=== PATIENT | female | born 1960 | race Caucasian/White ===

== ENCOUNTER 2018-12-28 17:50 | Emergency (ER) | payer MEDICARE ==
[~2018-12-28] VITALS: Ht 160 cm; Wt 122.7 kg
[2018-12-28 17:51] VITALS: Ht 160 cm; Wt 122.7 kg
[2018-12-28] MEDS ORDERED: SYNTHROID150 MCG PO (17:53)
[2018-12-28] MEDS ORDERED: LASIX20 MG PO (17:54)
[2018-12-28] MEDS ORDERED: K-DUR20 MEQ PO (17:54)
[2018-12-28 18:49] LABS: BASOPHILS 0.6 % (0-2); EOSINOPHILS 3.9 % (0-7); HEMATOCRIT 38.7 % (36.0-48.0); HEMOGLOBIN 12.6 g/dL (12-16); IMMATURE GRANULOCYTES 0.2 % (0-5); LYMPHOCYTES 36.9 % (15-50); MCHC 32.6 g/dL (31.0-37.0); MONOCYTES 4.8 % (2-11); NEUTROPHILS 53.6 % (40-80); PLATELET COUNT 278 10x3/uL (130-400); RDW 18.5 % (11.5-14.5)
[2018-12-28 19:04] LABS: ALBUMIN 3.4 g/dL (3.4-5.0); ALKALINE PHOSPHATASE 77 U/L (46-116); ALT (SGPT) 17 U/L (10-68); BILIRUBIN - TOTAL 0.32 mg/dL (0.2-1.3); CALC OSMOLALITY 277 mosm/kg (275-300); CALCIUM 9.2 mg/dL (8.5-10.1); CARBON DIOXIDE 28.9 mmol/L (21.0-32.0); CHLORIDE - SERUM 103 mmol/L (98-107); CREATININE - SERUM 1.2 mg/dL (0.6-1.3); GLUCOSE 92 mg/dL (74-106); POTASSIUM - SERUM 4.1 mmol/L (3.5-5.1); PROTEIN - SERUM 7.6 g/dL (6.4-8.2); SODIUM 138 mmol/L (136-145); UREA NITROGEN 19 mg/dL (7-18); eGFR NON AFRICAN AMERICAN 49 mL/min (90-120)
[2018-12-28 19:13] LABS: PRO BNP 320 pg/mL (0-125); TROPONIN-I < 0.017 ng/mL (0.000-0.060)
[2018-12-28] MEDS ORDERED: LASIX40 MG PO (21:46)
[2018-12-28] MEDS ORDERED: MEDROL DOSE PACK4 MG PO (21:46)
[2018-12-28] MEDS ORDERED: VIBRAMYCIN 100100 MG PO (21:46)
[2018-12-28] MEDS ORDERED: KLOR-CON M2020 MEQ PO (21:46)
[2018-12-28] MEDS ORDERED: IPRAT-ALBUT 0.5-3 ML UPD (21:46)
[2018-12-28 23:04] VITALS: BP 132/83
== END 2018-12-28 22:57 | disposition home or self-care (01) ==
LOC: D.ER 17:50
PROVIDERS: Emergency Medicine
DX: J44.9 Chronic obstructive pulmonary disease, unspecified (principal); E03.9 Hypothyroidism, unspecified; R09.02 Hypoxemia; E66.01 Morbid (severe) obesity due to excess calories

== ENCOUNTER 2019-08-07 11:36 | Emergency (ER) | payer MEDICARE ==
[~2019-08-07] VITALS: Ht 160 cm; Wt 122.7 kg
[~2019-08-07 11:36] MED LIST: IPRAT-ALBUT 0.5-3 ML UPD; K-DUR20 MEQ PO; KLOR-CON M2020 MEQ PO; LASIX20 MG PO; LASIX40 MG PO; MEDROL DOSE PACK4 MG PO; SYNTHROID150 MCG PO; VIBRAMYCIN 100100 MG PO
[2019-08-07 11:53] VITALS: Ht 160 cm; Wt 122.7 kg
[2019-08-07 12:23] LABS: BASOPHILS 0.3 % (0-2); EOSINOPHILS 4.3 % (0-7); HEMATOCRIT 41.8 % (36.0-48.0); HEMOGLOBIN 13.4 g/dL (12-16); IMMATURE GRANULOCYTES 0.2 % (0-5); LYMPHOCYTES 33.4 % (15-50); MCH 29.5 pg (26.0-34.0); MCHC 32.1 g/dL (31.0-37.0); MCV 91.9 fL (80.0-100.0); MEAN PLATELET VOLUME 9.7 fL (7.4-10.4); NEUTROPHILS 56.8 % (40-80); PLATELET COUNT 327 10x3/uL (130-400); RBC 4.55 10x6/uL (4.00-5.40); RDW 17.4 % (11.5-14.5); WBC 9.6 10x3/uL (4.8-10.8)
[2019-08-07 12:34] LABS: CALC OSMOLALITY 274 mosm/kg (275-300); CALCIUM 9.1 mg/dL (8.5-10.1); CARBON DIOXIDE 28.1 mmol/L (21.0-32.0); CHLORIDE - SERUM 102 mmol/L (98-107); CREATININE - SERUM 1.2 mg/dL (0.6-1.3); GLUCOSE 94 mg/dL (74-106); POTASSIUM - SERUM 4.4 mmol/L (3.5-5.1); SODIUM 137 mmol/L (136-145); UREA NITROGEN 15 mg/dL (7-18); eGFR NON AFRICAN AMERICAN 49 mL/min (90-120)
[2019-08-07 12:50] LABS: APTT 34.9 SECONDS (22.8-39.4)
[2019-08-07 12:51] LABS: ALBUMIN 3.6 g/dL (3.4-5.0); ALKALINE PHOSPHATASE 71 U/L (46-116); ALT (SGPT) 21 U/L (10-68); BILIRUBIN - TOTAL 0.28 mg/dL (0.2-1.3); CKMB 7.5 U/L (0.0-3.6); CREATINE KINASE 463 UL (21-215); PRO BNP 378 pg/mL (0-125); PROTEIN - SERUM 8.1 g/dL (6.4-8.2); TROPONIN-I < 0.017 ng/mL (0.000-0.060)
[2019-08-07 12:52] LABS: INR 0.93 (0.85-1.17); PROTIME 12.4 SECONDS (11.6-15.0)
[2019-08-07] MEDS ORDERED: SYNTHROID50 MCG PO (16:05)
[2019-08-07 17:03] VITALS: BP 128/61
== END 2019-08-07 16:20 | disposition home or self-care (01) ==
LOC: D.ER 11:36
PROVIDERS: Family Medicine
DX: R06.02 Shortness of breath (principal); E03.9 Hypothyroidism, unspecified; R53.1 Weakness; J44.9 Chronic obstructive pulmonary disease, unspecified

== ENCOUNTER → 2020-02-07 18:30 | Outpatient (CLI) | payer MEDICARE ==
[2019-08-07 11:53] VITALS: BMI 47.9
[~2020-02-07 18:30] MED LIST changes: +MOBIC7.5 MG PO; +SYNTHROID100 MCG PO; +SYNTHROID50 MCG PO
== END | disposition home or self-care (01) ==
LOC: D.LABREF 18:30
PROVIDERS: ATTEND Orthopaedic Surgery
DX: M17.12 Unilateral primary osteoarthritis, left knee (principal)

== ENCOUNTER 2020-02-09 06:41 | Inpatient (IN) | payer MEDICARE ==
[~2020-02-09] VITALS: Ht 160 cm; Wt 132.8 kg
--- NOTE | ~2020-02-09 | HEMODYNAMI ---
PATIENT:CLARA CRUM MEDICAL RECORD: [id number] : 58 [facility] ADMISSION DATE: 02/09/20 Generatedon:02/18/202013:38 Patient name: CLARA CRUM Patient #: [id number] SSN: [id number] : 1960 Date of study: 02/18/2020 Page: Of Hemodynamic Procedure Report Patient Data Patient Demographics Procedure consent was obtained First Name: CLARA Gender: Female Last Name: SKYLA : 1960 Patient #: [id number] Age: 59 year(s) Race: SSN: [id number] Ethnicity: or Additional ID: [id number] Contact details Address: [address] State: [place] City: [place] Zip code: [address] Past Medical History Allergies Allergen Reaction Date Comments Reported Other allergy 02/18/2020 SULFA, Admission Admission Data Admission Date: 02/09/2020 Admission Time: 10:51 Arrival Date: 02/09/2020 Arrival Time: 10:51 Admit Source: Emergency Insurance Payor: Medicare department [facility] #: [id number] Room #: [facility]9 Height (in.): 62.99 BSA: 2.28 (m2) Height (cm.): 160 BMI: 51.95 (kg/m2) Weight (lbs.): 293.22 Weight (kg.): 133 Lab Results Lab Result Date: 02/18/2020 Lab Result Time: 0:00 Biochemistry Name Units Result Min Max BUN mg/dl 11.8 --(-*--)-- 7 18 Creatinine mg/dl 1.3 --(---*)-- 0.6 1.3 eGFR ml/min 44 *-(----)-- 90 120 NONAFRICAN CBC Name Units Result Min Max Hemoglobin g/dl 11.8 *-(----)-- 13.5 17.5 Procedure Procedure Types Cath Procedure Diagnostic Procedure Cardioversion External RAI Procedure Description Procedure Date Procedure Date: 02/18/2020 Procedure Start Time: 13:15 Procedure End Time: 13:28 Procedure Staff Name Function Elsy Vallecillo MD Performing Physician Teagan Larson RT Monitor Zaria Castillo RT Scrub Danish Pate RN Nurse Carmelo Araujo CRNA Additional personnel Caryl Becker Pharmacy Services Director Procedure Data Cath Procedure Fluoroscopy Diagnostic fluoroscopy Total fluoroscopy Time: 0 time: 0 min min Diagnostic fluoroscopy Total fluoroscopy dose: 0 dose: 0 mGy mGy Contrast Material Contrast Material Type Amount (ml) Isovue 300 0 Estimated blood loss: 5 ml Procedure Complications No complications Procedure Medications Medication Administration Route Dosage Oxygen etCO2 Nasal cannula 3 l/min Refer to Anesthesia Notes for Sedation Medications Hemodynamics Rest BSA: 2.28 (m2) HGB: 11.8 (g/dl) O2 Consumption: Estimated: 267.56 (ml/min) O2 Consumption indexed: Estimated:117.35 (ml/min/m) Heart Rate: 130 (bpm) Snapshots Pre Cath Intra NCS Post Cath Vital Signs Time Heart Resp SPO2 etCO2 NIBP (mmHg) Rhythm Pain Sedation Rate (ipm) (%) (mmHg) Status Level (bpm) 12:56:10 149 22 86 0 111/82(99) A-Flutter 0 (11) 10(A) , No pain 13:00:12 150 15 93 49.4 114/76(97) A-Flutter 0 (11) 10(A) , No pain 13:04:11 150 17 95 50.2 123/85(100) A-Flutter 0 (11) 9(A) , No pain 13:13:45 148 22 96 47.2 115/78(88) A-Flutter 0 (11) 9(A) , No pain 13:17:53 149 19 99 23.2 100/66(82) A-Flutter 0 (11) 9(A) , No pain 13:21:52 140 24 91 3.7 101/70(85) A-Flutter 0 (11) 9(A) , No pain 13:25:58 78 42 93 9.7 82/51(66) NSR 0 (11) 9(A) , No pain 13:28:48 78 25 93 12.7 84/53(65) NSR 0 (11) 9(A) , No pain 13:30:32 72 32 92 8.9 82/52(67) NSR 0 (11) 10(A) , No pain 13:32:37 76 22 96 46.4 78/50(61) NSR 0 (11) 10(A) , No pain 13:35:19 77 26 96 41.2 105/68(82) NSR 0 (11) 10(A) , No pain Medications Time Medication Route Dose Verified Delivered Reason Notes Effective ness by by 13:02:37 Oxygen etCO2 3 Elsy Peng used for Nasal l/min Avel Pate RN procedure cannula 13:02:46 Refer to Elsy Elyie used for Anesthesia Avel Pate planner scheduler Notes for Sedation Medications Procedure Log Time Note 12:30:29 Informed consent obtained and on chart 12:31:34 Admit Source: Emergency department 12:31:38 Arrival Date: 02/09/2020 10:51:00 AM 12:32:04 Insurance Payor : Medicare 12:32:14 Patient Height : 62.99 inches 12:32:17 Patient Weight : 293.22 lbs 12:32:44 Lab Result : Creatinine 1.3 mg/dl 12:32:44 Lab Result : BUN 11.8 mg/dl 12:32:44 Lab Result : eGFR NONAFRICAN 44 ml/min 12:32:44 Lab Result : Hemoglobin 11.8 g/dl 12:32:55 Procedure Status Cardioversion, RAI. 12:33:01 Diagnostic Cath Status : Elective 12:33:24 Danish Pate RN sent for patient. Start room use. 12:33:25 Time tracking: Regular hours (M-F 7:00 - 5:00) 12:33:31 Plan of Care:Hemodynamics will remain stable., Cardiac rhythm will remain stable., Comfort level will be maintained., Respiratory function will remain adequate., Patient/ family verbilizes understanding of procedure., Procedure tolerated without complication., Recovers from procedure without complications.. 12:49:05 Patient received from Med II to CCL 1 Alert and oriented. Tansferred to table in Supine position. 12:49:21 Warm blankets applied, and nando hugger turned on for patient comfort. 12:49:21 Correct patient and procedure confirmed by team. 12:49:22 ECG and BP/O2 sat monitors applied to patient. 12:49:24 Full Disclosure recording started 12:49:34 H&P Date Dictated: 02/09/2020 Within 30 days and on chart.. 12:49:35 Pre-procedure instructions explained to patient. 12:49:36 Pre-op teaching completed and patient verbalized understanding. 12:49:38 Family unavailable. 12:49:39 Patient NPO since Midnight. 12:50:52 Patient allergic to Other allergySULFA, 12:50:56 Is the patient allergic to Iodine/contrast media? No. 12:50:58 Was the patient premedicated? N/A 12:51:04 Alarms reviewed by R. N. 12:51:04 Sharps counted by scrub and verified by R.N. 12:51:10 Stress Test: no; N/A ? 12:51:15 Lab results completed and on chart. 12:51:25 IV patent on arrival in left antecubital with 0.9% NaCl at [facility]. 12:51:31 Patient pain scale 0/10 ?. 12:53:40 ----Pre-sedation anethsthesia assessment.---- 12:53:44 Previous problem with sedation/anesthesia? No ? 12:53:45 Snore? Yes 12:53:46 Sleep apnea? Yes 12:53:53 Deviated septum? No 12:53:54 Opens mouth fully? Yes 12:53:56 Sticks out tongue? Yes 12:53:58 Airway obstruction? Yes COPD ASTHMA 12:54:02 Dentures? No ? 12:54:21 Patient diabetic? No. 12:54:35 Is patient on blood thinner?No 12:54:40 Patient not . Patient is over age 55. 12:55:14 Vital chart was started 12:55:18 Baseline sample Acquired. 12:55:29 Rhythm: atrial fibrillation 13:00:11 Carmelo Araujo CRNA present and monitoring patient for TIVA. 13:00:19 Physician arrived 13:00:20 --------ALL STOP TIME OUT------ 13:00:21 Final Timeout: patient, procedure, and site verified with staff and physician. All members of the team are in agreement. 13:00:21 Final Timeout: patient, procedure, and site verified with staff and physician. All members of the team are in agreement. 13:00:27 Fire Safety Assessment: A--An alcohol-based skin anteseptic being used preoperatively., C--Open oxygen or nitrous oxide is being used., D--An ESU, laser, or fiber-optic light is being used. 13:00:30 Physical assessment completed. ASA score P 2 - A patient with mild systemic disease as per Elsy Vallecillo MD. 13:00:35 Sedation plan: TIVA Medication:Propofol 13:02:37 Oxygen 3 l/min etCO2 Nasal cannula was administered by Danish Pate RN; used for procedure; Verbal order read back and verified. 13:02:46 Refer to Anesthesia Notes for Sedation Medications was administered by Danish Pate RN; used for procedure; Verbal order read back and verified. 13:15:57 Procedure started. 13:17:11 Caryl Becker Nuclear Criticality Safety Engineer present for RAI. 13:17:12 RAI started. 13:17:15 Quick combo pads placed on patients chest and back. 13:21:55 RAI completed. 13:22:03 Defibrillator synced and charged to 360 Joules. 13:22:23 Shock delivered. 13:22:39 Patient cardioverted to sinus rhythm . 13:23:14 Procedure ended.(Physican Out) 13:23:36 Fluoroscopy time 00.00 minutes. 13:23:40 Fluoroscopy dose: 0 mGy 13:23:40 Flurop Dose total: 0 13:23:42 Dose Area Product 0 mGy/cm. 13:23:46 Contrast amount:Isovue 300 0ml. 13:23:49 Maximum allowable dose exceeded? No. 13:23:50 Sharps counted by scrub and verified by R.N. 13:23:51 Insertion/operative site no bleeding no hematoma. 13:23:58 Post procedure rhythm: sinus rhythm 13:24:01 Estimated blood loss: 5 ml 13:24:02 Post procedure instruction explained to patient.Patient verbalizes understanding. 13:24:03 Patient needs reinforcement of post procedure teaching. 13:24:10 Procedure type changed to Cath procedure, Diagnostic procedure, Cardioversion External, RAI 13:24:11 Procedure and supply charges have been captured, reviewed, submitted and are correct. 13:27:00 Procedure Complication : No complications 13:27:03 Vital chart was stopped 13:27:19 RAI Findings: RAI w/ cardioversion: no left atrial clot noted (proceed with cardioversion) 13:27:20 Operative report dictated upon procedure completion. 13:27:21 See physician's report for complete and final results. 13:27:58 Report given to Med II. 13:28:02 Procedure ended. 13:28:02 Full Disclosure recording stopped 13:35:51 End room use (Document Last) 13:36:18 Quick Combo opened to sterile field. 13:36:37 Quick Combo opened to sterile field. Device Usage Item Manufacture Quantity Catalog Hospital Part Current Minimal Lot# / Name Number Charge Number Stock Stock Delroyi al# Code Quick [employer] 2 [id number] Combo Signature Audit [place] Stage Time Signature Unsigned Intra-Procedure 02/18/2020 Teagan Larson 1:36:37 PM RT(R) Intra-Procedure 02/18/2020 Danish Pate RN 1:36:55 PM Intra-Procedure 02/18/2020 Elsy Vallecillo MD 1:38:28 PM [id number] [place] [address]
--- NOTE | ~2020-02-09 | HEMODYNAMI ---
PATIENT:CLARA CRUM MEDICAL RECORD: [id number] : 58 LOCATION:[facility] D.2119 ADMISSION DATE: 02/09/20 Generatedon:02/26/202013:36 Patient name: CLARA CRUM Patient #: [id number] SSN: [id number] : 1960 Date of study: 02/26/2020 Page: Of Hemodynamic Procedure Report Patient Data Patient Demographics Procedure consent was obtained First Name: CLARA Gender: Female Last Name: SKYLA : 1960 Patient #: [id number] Age: 59 year(s) Race: SSN: [id number] Ethnicity: or Additional ID: [id number] Contact details Address: [address] [place], [place] [address] [place] State: [place] City: [place] Zip code: [address] Past Medical History Allergies Allergen Reaction Date Comments Reported Other allergy 02/18/2020 SULFA, Other allergy 02/21/2020 sulfa Admission Admission Data Admission Date: 02/09/2020 Admission Time: 10:51 Arrival Date: 02/09/2020 Arrival Time: 10:51 Admit Source: Emergency Insurance Payor: Medicare department [facility] #: [id number] Room #: D211 Height (in.): 62.99 BSA: 2.28 (m2) Height (cm.): 160 BMI: 51.95 (kg/m2) Weight (lbs.): 293.22 Weight (kg.): 133 Lab Results Lab Result Date: 02/26/2020 Lab Result Time: 0:00 Biochemistry Name Units Result Min Max BUN mg/dl 28 --(----)-* 7 18 Creatinine mg/dl 1.1 --(--*-)-- 0.6 1.3 CBC Name Units Result Min Max Hematocrit % 36.7 *-(----)-- 42 54 Hemoglobin g/dl 10.8 *-(----)-- 13.5 17.5 Procedure Procedure Types Cath Procedure Diagnostic Procedure RAI Procedure Description Procedure Date Procedure Date: 02/26/2020 Procedure Start Time: 12:30 Procedure Staff Name Function Tylor Combs MD Performing Physician Diana Zhu RT Monitor Keyon Oconnell RN Nurse Caryl Becker Metal Hanging Supervisor Zaire Calderon CRNA Additional personnel Procedure Data Cath Procedure Fluoroscopy Diagnostic fluoroscopy Total fluoroscopy Time: 0 time: 0 min min Diagnostic fluoroscopy Total fluoroscopy dose: 0 dose: 0 mGy mGy Estimated blood loss: 0 ml Procedure Complications No complications Hemodynamics Rest BSA: 2.28 (m2) HGB: 10.8 (g/dl) O2 Consumption: Estimated: 218.42 (ml/min) O2 Consumption indexed: Estimated:95.8 (ml/min/m) Heart Rate: 73 (bpm) Snapshots Pre Cath Intra NCS Post Cath Vital Signs Time Heart Resp SPO2 etCO2 NIBP (mmHg) Rhythm Pain Sedation Rate (ipm) (%) (mmHg) Status Level (bpm) 13:00:23 70 20 88 0 102/30(49) NSR (Missing) 10(A) 13:04:49 72 18 89 0 113/57(84) NSR (Missing) 10(A) 13:09:19 79 25 92 0 123/90(105) NSR (Missing) 10(A) 13:14:18 80 21 0 Measuring NSR (Missing) 10(A) 13:15:42 84 21 0 Time NSR (Missing) 10(A) Exceeded 13:20:23 75 13 95 0 97/47(68) NSR (Missing) 10(A) 13:24:53 74 26 85 0 95/47(77) NSR (Missing) 10(A) 13:29:14 77 24 80 0 93/47(65) NSR (Missing) 10(A) 13:33:38 75 11 92 0 83/40(57) NSR (Missing) 10(A) Procedure Log Time Note 12:31:22 Informed consent obtained and on chart 12:31:48 Patient Weight : 293.22 lbs 12:31:48 Patient Height : 62.99 inches 12:32:03 Procedure Status RAI. 12:40:49 Time tracking: Regular hours (M-F 7:00 - 5:00) 12:40:53 Plan of Care:Hemodynamics will remain stable., Cardiac rhythm will remain stable., Comfort level will be maintained., Respiratory function will remain adequate., Patient/ family verbilizes understanding of procedure., Procedure tolerated without complication., Recovers from procedure without complications.. 12:44:42 Diana Zhu RT(R) sent for patient. Start room use. 12:56:56 Patient arrived from Med II to CCL 3. Patient remains on bed/stretcher for procedure. 12:56:58 Warm blankets applied, and nando hugger turned on for patient comfort. 12:56:58 Correct patient and procedure confirmed by team. 12:56:59 ECG and BP/O2 sat monitors applied to patient. 12:57:00 Pre-procedure instructions explained to patient. 12:57:01 Pre-op teaching completed and patient verbalized understanding. 12:57:03 Family in patients room. 12:57:04 Patient NPO since Midnight. 12:57:09 Is the patient allergic to Iodine/contrast media? No. 12:57:11 Was the patient premedicated? N/A 12:57:16 ----Pre-sedation anethsthesia assessment.---- 12:57:20 Previous problem with sedation/anesthesia? No ? 12:57:21 Snore? Yes 12:57:22 Sleep apnea? Yes 12:57:23 Deviated septum? No 12:57:24 Opens mouth fully? Yes 12:57:26 Sticks out tongue? Yes 12:57:29 Airway obstruction? Yes copd 12:57:32 Dentures? No ? 12:57:56 Patient not . Patient is over age 54. 12:58:13 Full Disclosure recording started 12:58:18 Alarms reviewed by R. N. 12:58:18 Sharps counted by scrub and verified by R.N. 12:58:41 Vital chart was started 12:58:43 Baseline sample Acquired. 12:58:49 Patient diabetic? Yes. 12:58:52 Is patient on blood thinner?No 12:59:00 Patient pain scale 0/10 ?. 12:59:13 IV patent on arrival in left hand with 0.9% NaCl at O. 12:59:17 Lab results completed and on chart. 12:59:47 Lab Result : BUN 28 mg/dl 12:59:47 Lab Result : Creatinine 1.1 mg/dl 12:59:47 Lab Result : Hemoglobin 10.8 g/dl 12:59:47 Lab Result : Hematocrit 36.7 % 12:59:52 Stress Test: no; N/A ? 13:10:47 Zaire Calderon CRNA present and monitoring patient for TIVA. 13:15:36 IV Extension Set opened to sterile field. 13:22:37 --------ALL STOP TIME OUT------ 13:22:38 Final Timeout: patient, procedure, and site verified with staff and physician. All members of the team are in agreement. 13:22:41 Physical assessment completed. ASA score P 3 - A patient with severe systemic disease as per Tylor Combs MD. 13:22:44 Sedation plan: TIVA Medication:Propofol 13:23:07 RAI 13:23:11 Caryl Becker Generator Repairer present for RAI. 13:23:13 RAI started. 13:29:37 RAI completed. 13:30:16 Procedure ended.(Physican Out) 13:31:33 Fluoroscopy time 00.00 minutes. 13:31:34 Fluoroscopy dose: 0 mGy 13:31:34 Flurop Dose total: 0 13:31:38 Post-procedure physical assessment completed. ASA score P 3 - A patient with severe systemic disease as per Tylor Cobms MD. 13:32:04 Post procedure rhythm: sinus rhythm 13:32:34 Estimated blood loss: 0 ml 13:32:35 Post procedure instruction explained to patient.Patient verbalizes understanding. 13:32:36 Patient needs reinforcement of post procedure teaching. 13:33:02 Procedure and supply charges have been captured, reviewed, submitted and are correct. 13:33:09 Procedure Complication : No complications 13:33:46 RAI Findings: other (see operative note) 13:33:47 Operative report dictated upon procedure completion. 13:33:48 See physician's report for complete and final results. 13:33:50 Report given to Med II. 13:33:55 Patient transfered to Med II with Bed. 13:34:36 Vital chart was stopped 13:34:39 End room use (Document Last) 13:34:51 End room use (Document Last) 13:36:15 End room use (Document Last) Device Usage Item Name Manufacture Quantity Catalog Hospital Part Current Minimal Lot# / Number Charge Number Stock Stock Serial# Code IV Hosp[employer] 1 [id number] Extension Set Signature Audit [place] Stage Time Signature Unsigned Intra-Procedure 02/26/2020 Diana Zhu 1:34:51 PM RT(R) Intra-Procedure 02/26/2020 Keoyn Oconnell 1:36:15 PM RN Intra-Procedure 02/26/2020 Tylor Stafford 1:36:50 PM Dennis HANEY [address] [address]
--- NOTE | ~2020-02-09 | HEMODYNAMI ---
PATIENT:CLARA CRUM MEDICAL RECORD: [id number] : 58 LOCATION:[facility] D.2119 ADMISSION DATE: 02/09/20 Generatedon:02/21/20209:24 Patient name: CLARA CRUM Patient #: [id number] : 1960 Date of study: 02/21/2020 Page: Of Hemodynamic Procedure Report Patient Data Patient Demographics Procedure consent was obtained First Name: CLARA Gender: Female Last Name: SKYLA : 1960 Patient #: [id number] Age: 59 year(s) Race: SSN: [id number] Ethnicity: or Additional ID: [id number] Contact details Address: [address] [place], [place] [address]ERINE DARIUS SOLOMON State: [place] City: [place] Zip code: [address] Past Medical History Allergies Allergen Reaction Date Comments Reported Other allergy 02/18/2020 SULFA, Other allergy 02/21/2020 sulfa Admission Admission Data Admission Date: 02/09/2020 Admission Time: 10:51 Arrival Date: 02/09/2020 Arrival Time: 10:51 Admit Source: Emergency Insurance Payor: Medicare department [facility] #: [id number] Room #: D2119 Height (in.): 62.99 BSA: 2.28 (m2) Height (cm.): 160 BMI: 51.95 (kg/m2) Weight (lbs.): 293.22 Weight (kg.): 133 Lab Results Lab Result Date: 02/21/2020 Lab Result Time: 0:00 Biochemistry Name Units Result Min Max BUN mg/dl 41 --(----)-* 7 18 Creatinine mg/dl 1.1 --(--*-)-- 0.6 1.3 eGFR ml/min 54 *-(----)-- 90 120 NONAFRICAN CBC Name Units Result Min Max Hemoglobin g/dl 11.3 *-(----)-- 13.5 17.5 Procedure Procedure Types Cath Procedure Diagnostic Procedure Right Heart RHC w/Coronaries Sedation Charges Moderate Sedation up to 15 minutes Procedure Description Procedure Date Procedure Date: 02/21/2020 Procedure Start Time: 8:31 Procedure End Time: 9:17 Procedure Staff Name Function Elsy Vallecillo MD Performing Physician Teagan Larson RT Monitor Zaria Castillo RT Scrub Danish Pate RN Nurse Procedure Data Cath Procedure Fluoroscopy Diagnostic fluoroscopy Total fluoroscopy Time: 5.7 time: 5.7 min min Diagnostic fluoroscopy Total fluoroscopy dose: 859 dose: 859 mGy mGy Contrast Material Contrast Material Type Amount (ml) Isovue 300 40 Entry Location Entry Primary Successful Side Size Upsize Upsize Entry Closure Hay ccessful Closure Location (Fr) 1 (Fr) 2 (Fr) Remarks Device Remarks Femoral Right 5 Fr Exoseal artery Femoral Right 7 Fr Manual vein Short Compression Estimated blood loss: 5 ml Diagnostic catheters Device Type Used For End Catheter Placement SWAN 7Fr S Tip Pressure Thermodilution catheter Measurement (151F7) Procedure Complications No complications Procedure Medications Medication Administration Route Dosage Oxygen etCO2 Nasal cannula 2 l/min Lidocaine 2% added to field 20 Heparin Flush Bag added to field 2 bags (1000units/500ml NS) 0.9% NaCl I.V. 50 ml/hr Versed I.V. 1 mg Fentanyl I.V. 25 mcg Hemodynamics Rest BSA: 2.28 (m2) HGB: 11.3 (g/dl) O2 Consumption: Estimated: 215.37 (ml/min) O2 Co nsumption indexed: Estimated:94.46 (ml/min/m) Heart Rate: 69 (bpm) Oxygen Saturations Time Location Saturations Hgb (g/dl) O2 Content Use (%) (ml/L) 8:47 PCW 65 8:48 PA 58.4 8:49 RA 53 Pressure Samples Time Site Value (mmHg) Purpose Heart Use Rate(bpm) 8:50 PCW 31/51(34) Snapshot 69 8:50 PCW 29/54(34) Snapshot 59 8:56 RV 56/14,21 Snapshot 69 8:56 RA 24/20(19) Snapshot 66 Thermodilution Cardiac Output Time Cardiac Output (l/min) Use 8:54 3.89 l/m 8:55 4.43 l/m Calculations Shunts (%) CO SV CO CI Right To 0.24 (ml/beat) (l/min) (l/(min*m)) Left Thermal 60.73 4.16 1.8 Content (ml/l) O2 Difference (ml/l) O2 MV 81.45 PV-PA(VA) O2 PA 89.75 PV-MV(VV) Snapshots Thermal Samples Pre Cath Intra NCS Post Cath Vital Signs Time Heart Resp SPO2 etCO2 NIBP (mmHg) Rhythm Pain Sedation Rate (ipm) (%) (mmHg) Status Level (bpm) 8:24:55 69 21 93 52.5 130/82(106) NSR 0 (11) 10(A) , No pain 8:29:28 70 27 94 54.1 124/76(101) NSR 0 (11) 10(A) , No pain 8:34:02 71 25 94 52.6 128/79(101) NSR 0 (11) 10(A) , No pain 8:38:43 69 24 95 43.5 116/58(89) NSR 0 (11) 10(A) , No pain 8:43:11 69 27 95 51 122/72(98) NSR 0 (11) 10(A) , No pain 8:47:44 68 19 94 50.3 125/77(106) NSR 0 (11) 10(A) , No pain 8:52:18 68 19 95 41.3 122/82(105) NSR 0 (11) 10(A) , No pain 8:56:53 69 25 96 24 128/77(121) NSR 0 (11) 10(A) , No pain 9:01:19 68 17 95 52.5 128/83(109) NSR 0 (11) 10(A) , No pain 9:05:55 69 21 94 21.8 125/77(108) NSR 0 (11) 10(A) , No pain 9:10:32 61 14 94 40.5 129/77(105) NSR 0 (11) 10(A) , No pain 9:15:08 69 18 90 18 126/79(104) NSR 0 (11) 10(A) , No pain Medications Time Medication Route Dose Verified Delivered Reason Notes Effe ctiveness by by 8:17:53 Oxygen etCO2 2 Elsy Peng used for Nasal l/min Avel Pate RN procedure cannula 8:18:03 Lidocaine 2% added 20ml Elsy Chin for local to vial Avel Vallecillo MD anesthetic field 8:18:10 Heparin Flush added 2 Norred Norred used for Bag to bags Avel Vallecillo MD procedure (1000units/500ml field NS) 8:18:19 0.9% NaCl I.V. 50 Elsy Peng Per ml/hr Avel Pate RN physician 9:00:57 Versed I.V. 1 mg Elsy Peng for Avel Pate RN sedation 9:01:03 Fentanyl I.V. 25 Francired Buffie for mcg Avel Pate RN sedation Procedure Log Time Note 7:24:12 Informed consent obtained and on chart 7:24:40 Patient Height : 62.99 inches 7:24:40 Patient Weight : 293.22 lbs 7:24:49 Diagnostic Cath Status : Urgent 7:25:54 Lab Result : eGFR NONAFRICAN 54 ml/min 7:25:54 Lab Result : Hemoglobin 11.3 g/dl 7:25:54 Lab Result : BUN 41 mg/dl 7:25:54 Lab Result : Creatinine 1.1 mg/dl 7:26:07 3a) 45-59 Moderately reduced kidney function. 7:26:32 Maximum allowable contrast dose (3.7 X eGFR X 0.75)149 ml. 7:28:27 Risk of Mortality: 0.2 7:28:31 Risk of blood transfusion: 1.8 7:28:34 Risk of KATHIE: 2.6 7:32:10 Danish Pate RN sent for patient. Start room use. 7:32:11 Time tracking: Regular hours (M-F 7:00 - 5:00) 7:32:17 Plan of Care:Hemodynamics will remain stable., Cardiac rhythm will remain stable., Comfort level will be maintained., Respiratory function will remain adequate., Patient/ family verbilizes understanding of procedure., Procedure tolerated without complication., Recovers from procedure without complications.. 8:06:24 Patient received from Med II to CCL 1 Alert and oriented. Tansferred to table in Supine position. 8:06:32 Warm blankets applied, and nando hugger turned on for patient comfort. 8:06:33 Correct patient and procedure confirmed by team. 8:06:33 ECG and BP/O2 sat monitors applied to patient. 8:06:43 H&P Date Dictated: 02/09/2020 Within 30 days and on chart.. 8:06:45 Pre-procedure instructions explained to patient. 8:06:45 Pre-op teaching completed and patient verbalized understanding. 8:06:47 Patient NPO since Midnight. 8:07:00 Patient allergic to Other allergysulfa 8:17:12 Baseline sample Acquired. 8:17:12 Vital chart was started 8:17:53 Oxygen 2 l/min etCO2 Nasal cannula was administered by Danish Pate RN; used for procedure; Verbal order read back and verified. 8:18:03 Lidocaine 2% 20ml vial added to field was administered by Elsy Vallecillo MD; for local anesthetic; Verbal order read back and verified. 8:18:10 Heparin Flush Bag (1000units/500ml NS) 2 bags added to field was administered by Elsy Vallecillo MD; used for procedure; Verbal order read back and verified. 8:18:19 0.9% NaCl 50 ml/hr I.V. was administered by Danish Pate RN; Per physician; Verbal order read back and verified. 8:19:32 Rhythm: sinus rhythm 8:19:34 Full Disclosure recording started 8:19:36 Family in patients room. 8:19:38 Is the patient allergic to Iodine/contrast media? No. 8:19:39 Was the patient premedicated? Yes 8:19:41 Is patient on blood thinner?No 8:19:42 Patient diabetic? No. 8:19:45 Previous problem with sedation/anesthesia? No ? 8:19:46 Snore? Yes 8:19:47 Sleep apnea? Yes 8:19:49 Deviated septum? No 8:19:49 Opens mouth fully? Yes 8:19:50 Sticks out tongue? Yes 8:20:00 Airway obstruction? Yes copd, emphysema 8:20:03 Dentures? No ? 8:20:31 Pre procedure: right dorsailis pedis pulse 2+ Normal; easily identifiable; not easily obliterated 8:20:34 Pre procedure: left dorsailis pedis pulse 2+ Normal; easily identifiable; not easily obliterated 8:20:41 Patient pain scale 0/10 ?. 8:20:50 IV patent on arrival in left wrist with 0.9% NaCl at [facility]. 8:20:54 Lab results completed and on chart. 8:21:03 Right Radial & Right Groin area was prepped with chlora-prep and draped in sterile fashion 8:21:04 Alarms reviewed by RWilmer N. 8:21:04 Sharps counted by scrub and verified by RWilmerN. 8:21:06 Physician arrived 8:21:06 --------ALL STOP TIME OUT------ 8:21:07 Final Timeout: patient, procedure, and site verified with staff and physician. All members of the team are in agreement. 8:21:09 Right Radial & Right Groin site verified by team. 8:23:34 SHEATH 7FR [place] ([id number]) opened to sterile field. 8:23:42 Use device set Radial Dx or PCI 8:23:45 ACIST Syringe (37051) opened to sterile field. 8:23:45 Medline Cath Pack ([id number]) opened to sterile field. 8:23:46 Bag Decanter (2002S) opened to sterile field. 8:23:46 ACIST Hand Control (12877) opened to sterile field. 8:23:47 ACIST Manifold (61660) opened to sterile field. 8:23:47 Tegaderm 4 x 4 (1626W) opened to sterile field. 8:23:49 MBrace Wrist Support ([id number]) opened to sterile field. 8:23:51 EMERALD Guide Wire (638-255) opened to sterile field. 8:23:52 SHEATH 6FR RAIN ([id number]) opened to sterile field. 8:24:09 Fire Safety Assessment: A--An alcohol-based skin anteseptic being used preoperatively., C--Open oxygen or nitrous oxide is being used., D--An ESU, laser, or fiber-optic light is being used. 8:24:14 Physical assessment completed. ASA score P 2 - A patient with mild systemic disease as per Elsy Vallecillo MD. 8:24:18 Sedation plan: IV Moderate Sedation Medication:Versed, Fentanyl 8:25:22 Tegaderm 4 x 4 (1626W) opened to sterile field. 8:31:08 Procedure started. 8:31:17 Local anesthetic to right radial artery with Lidocaine 2% by Elsy Vallecillo MD.INITIAL ACCESS ONLY 8:33:49 FIELDER XT 190cm guidewire ([id number]) opened to sterile field. 8:33:50 fielder wire used in attempt to gain radial access; wire removed; unable to gain radial access 8:34:24 Zero performed for pressure channel P1 8:37:57 Baseline sample Acquired. 8:42:52 Local anesthetic to right femoral artery with Lidocaine 2% by Elsy Vallecillo MD.ADDITIONAL ACCESS 8:42:53 Access obtained with 4Fr micropunture. 8:43:24 SHEATH 5FR [place] (PZL115) opened to sterile field. 8:43:37 A 5 Fr sheath was inserted into the Right Femoral artery 8:44:31 A 7 Fr Short sheath was inserted into the Right Femoral vein 8:46:53 A SWAN 7Fr S Tip Thermodilution catheter (151F7) was advanced over the wire and used for Pressure Measurement. 8:47:50 PCW saturation: 65% 8:48:50 PA saturation: 58.4% 8:49:50 RA saturation: 53% 8:54:52 Thermodilution performed using a Hernandes 131F7 7.0 Fr 19-22C 10.00 mL. Injectate temperature was 17.70 C, CO: 3.89 L/min, average CO: 4.16 L/min 8:55:31 Thermodilution performed using a Hernandes 131F7 7.0 Fr 19-22C 10.00 mL. Injectate temperature was 17.72 C, CO: 4.43 L/min, average CO: 4.16 L/min 8:59:05 average of both Cardiac Output measurements 4.16 8:59:06 DIAGNOSTIC Multipack 5Fr catheter set (AE8344) opened to sterile field. 8:59:40 5 Fr jl4 guide catheter was inserted over the wire 9:00:43 LCA angiography performed. 9:00:45 Injector settings: Ml/sec: 3, Volume: 6, 9:00:57 Versed 1 mg I.V. was administered by Danish Pate RN; for sedation; Verbal order read back and verified. 9:01:03 Fentanyl 25 mcg I.V. was administered by Danish Pate RN; for sedation; Verbal order read back and verified. 9:02:14 Catheter removed. 9:02:20 5 Fr 3drc guide catheter was inserted over the wire 9:03:41 RCA angiography performed. 9:03:43 Injector settings: Ml/sec: 3, Volume: 6, 9:04:11 GLIDE WIRE Super Stiff Angled 260cm (QU2385) opened to sterile field. 9:06:26 Wire removed. 9:06:38 Catheter removed. 9:06:52 EXOSEAL 5Fr (EX500) opened to sterile field. 9:09:54 Sheath removed intact; hemostasis achieved with Exoseal to the Right Femoral artery. 9:10:06 Sheath removed intact; hemostasis achieved with Manual Compression to the Right Femoral vein. 9:10:08 Procedure ended.(Physican Out) 9:10:22 Fluoroscopy time 05.70 minutes. 9:10:27 Flurop Dose total: 859 9:10:27 Fluoroscopy dose: 859 mGy 9:10:33 Dose Area Product 91616 mGy/cm. 9:10:37 Contrast amount:Isovue 300 40ml. 9:10:43 Maximum allowable dose exceeded? No. 9:10:46 Sharps counted by scrub and verified by R.N. 9:10:48 Insertion/operative site no bleeding no hematoma. 9:10:51 Post-op/insertion site Right Femoral artery dressed using a 4 x 4 and Tegaderm. 9:10:56 Post right femoral artery:stable 9:10:59 Post right femoral vein:stable 9:11:09 Post Procedure Pulses reassessed and unchanged 9:11:15 Post procedure rhythm: unchanged. 9:11:18 Estimated blood loss: 5 ml 9:13:52 Post procedure instruction explained to patient.Patient verbalizes understanding. 9:13:53 Patient needs reinforcement of post procedure teaching. 9:16:41 Procedure type changed to Cath procedure, Diagnostic procedure, Right Heart, RHC w/Coronaries, Sedation Charges, Moderate Sedation up to 15 minutes 9:17:23 Procedure and supply charges have been captured, reviewed, submitted and are correct. 9:17:27 Procedure Complication : No complications 9:17:31 Vital chart was stopped 9:17:34 LHC Findings: mild to moderate CAD (<70%) 9:17:39 RHC Findings: PHTN: see procedure notes for sats and pressures 9:17:40 Operative report dictated upon procedure completion. 9:17:41 See physician's report for complete and final results. 9:17:46 Report given to [facility]. 9:17:48 Patient transfered to [facility] with Stretcher. 9:17:50 Procedure ended. 9:17:50 Full Disclosure recording stopped 9:17:55 End room use (Document Last) 9:23:19 End room use (Document Last) 9:23:38 End room use (Document Last) Device Usage Item Name Manufacture Quantity Catalog Hospital Part Current Min imal Lot# / Number Charge Number Stock Stock Serial# Code SHEATH 7FR Terumo 1 [id number] 177342 510894 5 [place] ([id number]) ACIST Syringe Acist 1 69562 605606 793235 539716 20 (04954) Medical Systems Inc Medline Cath Medline 1 [id number] 381897 35542 760670 5 Pack ([id number]) Bag Decanter Microtek 1 2002S 181265 19811 741893 5 (2001S) Medical Inc. ACIST Hand Acist 1 45730 257734 951912 530572 5 Control Medical (49853) Systems Inc ACIST Manifold Acist 1 41007 882977 611988 427097 5 (13461) Medical Systems Inc Tegaderm 4 x 4 3M 2 1626W 350874 567003 802683 5 (1626W) MBrace Wrist Advanced 1 140-0250-00 552988 76180 300031 5 Support Vascular ([id number]) Dynamics EMERALD Guide Cardinal 1 502-455 592462 475056 892905 5 Wire (502-455) Health SHEATH 6FR Cardinal 1 0912300 492210 9360038 569615 5 RAIN (0037924) Health FIELDER XT Asahi Intecc 1 [id number] 160193 60862 811056 5 190cm guidewire ([id number]) SHEATH 5FR Terumo 1 OVA219 688077 153368 039304 5 [place] (GZU737) SWAN 7Fr S Tip Hernandes 1 151F7 634054 09689 632607 5 Thermodilution Lifesciences catheter (151F7) DIAGNOSTIC Cardinal 1 JU0409 959440 39066 719722 30 Multipack 5Fr Health catheter set (QN3057) GLIDE WIRE Terumo 1 AH5992 034655 619581 993443 5 Super Stiff Angled 260cm (BS4119) EXOSEAL 5Fr Cardinal 1 EX500 369144 212113 803871 10 (EX500) Health Signature Audit [place] Stage Time Signature Unsigned Intra-Procedure 02/21/2020 Teagan Larson 9:23:19 AM RT(R) Intra-Procedure 02/21/2020 Danish Pate RN 9:23:38 AM Intra-Procedure 02/21/2020 Elsy Vallecillo MD 9:23:58 AM [id number] [place] [address]
[~2020-02-09 06:41] MED LIST changes: -MOBIC7.5 MG PO; -SYNTHROID100 MCG PO
--- NOTE | 2020-02-09 07:38 | NUR ---
PT SLEEPING ON SIDE. NO S/S OF ACUTE DISTRESS NOTED. PT PROVIDED WARM BLANKET FOR COMFORT.
[2020-02-09 07:51] LABS: HEMATOCRIT 39.4 % (36.0-48.0); HEMOGLOBIN 12.4 g/dL (12-16); LYMPHOCYTES 18.3 % (15-50); MCH 30.5 pg (26.0-34.0); MCHC 31.5 g/dL (31.0-37.0); MEAN PLATELET VOLUME 9.3 fL (7.4-10.4); NEUTROPHILS 75.5 % (40-80); PLATELET COUNT 327 10x3/uL (130-400); RBC 4.06 10x6/uL (4.00-5.40); WBC 10.5 10x3/uL (4.8-10.8)
[2020-02-09 07:54] LABS: CALC OSMOLALITY 278 mosm/kg (275-300); CARBON DIOXIDE 32.6 mmol/L (21.0-32.0); CHLORIDE - SERUM 102 mmol/L (98-107); CREATININE - SERUM 1.1 mg/dL (0.6-1.3); GLUCOSE 107 mg/dL (74-106); POTASSIUM - SERUM 4.1 mmol/L (3.5-5.1); SODIUM 139 mmol/L (136-145); UREA NITROGEN 16 mg/dL (7-18); eGFR NON AFRICAN AMERICAN 54 mL/min (90-120)
[2020-02-09 07:56] LABS: APTT 33.8 SECONDS (22.8-39.4); INR 0.93 (0.85-1.17); PROTIME 12.5 SECONDS (11.6-15.0)
[2020-02-09 08:13] LABS: ALBUMIN 3.5 g/dL (3.4-5.0); ALKALINE PHOSPHATASE 95 U/L (30-120); ALT (SGPT) 30 U/L (10-68); BILIRUBIN - TOTAL 0.39 mg/dL (0.2-1.3); CKMB 1.3 U/L (0.0-3.6); CREATINE KINASE 97 UL (21-215); PRO BNP 2195 pg/mL (0-125); PROTEIN - SERUM 8.1 g/dL (6.4-8.2); TROPONIN-I < 0.017 ng/mL (0.000-0.060)
--- NOTE | 2020-02-09 08:50 | NUR ---
PT PLACED ON ISOLATION PERCAUTIONS. COVID SWAB TAKEN TO LAB.
[2020-02-09 09:00] VITALS: BP 113/72
--- NOTE | 2020-02-09 10:11 | NUR ---
1000CC OUT OF DÍAZ CATH, PT STATES SHE IS HURTING C/O HEADACHE. PT VOIDING AROUND CATH
[2020-02-09 10:30] VITALS: BP 104/58
--- NOTE | 2020-02-09 11:20 | NUR ---
PT AGITATED. RN UPDATED PT ON PLAN OF CARE AND PLAN TO ADMIT PT. PT CONTINUES TO YELL STATING "I AM JUST GOING TO WALK OUT OF HERE". RN ATTEMPTING TO CALL REPORT AT THIS TIME.
[2020-02-09 11:30] VITALS: BP 115/55
--- NOTE | 2020-02-09 11:56 | NUR ---
REPORT RECEIVED FROM ED NURSE NIDA. PATIENT TO UNIT SOON.
--- NOTE | 2020-02-09 12:10 | NUR ---
PATIENT ARRIVED TO UNIT VIA GERNEY AT THIS TIME. PATIENT IS PUI FOR COVID AND BEING PLACED IN DROPLET ISOLATION.
[2020-02-09] MEDS ORDERED: SYNTHROID100 MCG PO (12:27)
[2020-02-09] MEDS ORDERED: MOBIC7.5 MG PO (12:29)
--- NOTE | 2020-02-09 13:00 | NUR ---
COVID RESULTS NEGATIVE, PATIENT REMOVED FROM DROPLET ISOLATION.
[2020-02-09 14:54] VITALS: BMI 56.8
[2020-02-09 20:28] VITALS: BP 96/72
[2020-02-10 05:00] VITALS: BP 110/67
[2020-02-10 08:00] LABS: HEMATOCRIT 38.9 % (36.0-48.0); HEMOGLOBIN 12.2 g/dL (12-16); LYMPHOCYTES 6.7 % (15-50); MCH 30.9 pg (26.0-34.0); MCHC 31.4 g/dL (31.0-37.0); MCV 98.5 fL (80.0-100.0); MEAN PLATELET VOLUME 9.7 fL (7.4-10.4); NEUTROPHILS 91.4 % (40-80); PLATELET COUNT 354 10x3/uL (130-400); RBC 3.95 10x6/uL (4.00-5.40); RDW 14.5 % (11.5-14.5)
[2020-02-10 08:02] LABS: WBC 18.1 10x3/uL (4.8-10.8)
[2020-02-10 08:35] LABS: ALBUMIN 3.2 g/dL (3.4-5.0); ALKALINE PHOSPHATASE 99 U/L (30-120); BILIRUBIN - TOTAL 0.42 mg/dL (0.2-1.3); CALC OSMOLALITY 286 mosm/kg (275-300); CALCIUM 8.6 mg/dL (8.5-10.1); CARBON DIOXIDE 33.7 mmol/L (21.0-32.0); CHLORIDE - SERUM 103 mmol/L (98-107); CKMB 1.1 U/L (0.0-3.6); CREATINE KINASE 84 UL (21-215); GLUCOSE 123 mg/dL (74-106); PROTEIN - SERUM 7.4 g/dL (6.4-8.2); SODIUM 142 mmol/L (136-145); TROPONIN-I 0.023 ng/mL (0.000-0.060); UREA NITROGEN 20 mg/dL (7-18); eGFR NON AFRICAN AMERICAN 60 mL/min (90-120)
[2020-02-10 08:39] LABS: ALT (SGPT) 63 U/L (10-68); POTASSIUM - SERUM 4.9 mmol/L (3.5-5.1)
[2020-02-10 10:06] VITALS: BP 143/85
--- NOTE | 2020-02-10 13:32 | NUR ---
URINE SPECIMEN COLLECTED AND TAKEN TO LAB. ECHO DONE AT BS. REMAINS ON BIPAP PER RT. WILL CONT. PLAN OF CARE.
[2020-02-10 13:54] LABS: UDS - AMPHET POSITIVE QUAL (NEGATIVE); UDS - BARB NEGATIVE QUAL (NEGATIVE); UDS - BENZO NEGATIVE QUAL (NEGATIVE); UDS - COCAINE NEGATIVE QUAL (NEGATIVE); UDS - OPIATE NEGATIVE QUAL (NEGATIVE); UDS - PCP NEGATIVE QUAL (NEGATIVE); UDS - THC POSITIVE QUAL (NEGATIVE)
[2020-02-10 13:54] LABS: BILIRUBIN NEGATIVE (NEGATIVE); GLUCOSE NEGATIVE (NEGATIVE); KETONE NEGATIVE (NEGATIVE); NITRITE NEGATIVE (NEGATIVE); UROBILINOGEN NORMAL (NORMAL)
[2020-02-10 13:55] LABS: BACTERIA FEW /hpf (NEGATIVE); GRANULAR CAST 0-5 /lpf (NONE SEEN); RED CELLS - URINE 0-5 /hpf (0-5); WHITE CELLS - URINE 0-5 /hpf (NEGATIVE)
--- NOTE | 2020-02-10 16:54 | NUR ---
AWKE AND OFF BIPAP. SCREAMING SHE CANT BREATH. REPOSITIONED IN BED. 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 REPORTED TO MARCUS MONTES HER ANXIETY. NEW ORDERS GIVEN. CT NOTIFIED THAT SHE IS OFF BIPAP NOW TO DO CT ORDERED. 02 SATS 96% ON 6L HIGH FLOW. WILL CONT. TO MONITOR.
--- NOTE | 2020-02-10 20:12 | NUR ---
1944 REPORT RECIEVED AND INITITAL ROUNDS COMPLETED. PT RESTING IN BED. CALL LIGHT IN REACH. NO DISTRESS. SEE ASSESSMENT.
--- NOTE | 2020-02-10 21:26 | NUR ---
PT RESTING IN BED WITH EYES CLOSED. FAMILY CALLING SAYING PT IS NOT ANSWERING HER PHONE. EXPLAINED THAT PATIENT IS ASLEEP, WOULD THEY LIKE ME TO AWAKEN HER? INSTRUCTED TO TELL PATIENT THAT JULIETA IS ON HER WAY UP HERE IS SHE AWAKENS.
[2020-02-10 21:30] VITALS: BP 120/75
--- NOTE | 2020-02-11 00:33 | NUR ---
PT YELLING OUT, TOSSING COVERS AND SAYING IT IS TOO HOT. SHE HAS A FAN POINTED DIRECTLY AT HER. ALL BEDTIME MEDS GIVEN. SALINE LOCK TO LFA. PT PULLED UP AND REPOSITIONED. SHEET ONLY ON HER SINCE SHE IS C/O BEING HOT. ENCOURAGED HER TO NOT YELLOUT AND DISTURB OTHER PATIENTS, THAT SHE HAS A CALL LIGHT SHE CAN USE. PT TELLING NURSE SHE IS CHECKING OUT TOMORROW AND GOING TO A HOSPITAL WITH AIR CONDITIONING
--- NOTE | 2020-02-11 01:01 | NUR ---
PT BACK TO YELLING IN HER ROOM. SHE HAS NOW CRAWLED TO FOOT OF BED AND BACK TO TOP OF BED SAYING SHE IS WET. PT HAS AN INTACT DÍAZ. LINENS ARE DRY. DÍAZ SHOWS NO LEAKAGE. GOWN IS DRY. PT HAS HER O2 TUBING AND HER NEBULIZER TUBING WRAPPED AROUND HER BODY. WHEN ASKED TO LAY ON HER BACK SO CATHETER COULD BE ASSESSED, SHE YELLED AT NURSE AND SAID SHE COULD NOT MOVE. THEN DEMANDED NURSE COVER HER UP BECAUSE SHE IS NOW COLD. NOW SHE IS SAYING SHE IS HAVING MENOPAUSE AND FOR NURSE TO JUST GO AWAY. CALL LIGHT IN REACH. DOOR TO ROOM OPEN FOR AIR FLOW. FAN ON. AIR CONDITIONING ON AND BLOWING COOL AIR.
--- NOTE | 2020-02-11 01:21 | NUR ---
PT NOW YELLING "I CAN'T BREATH" AND WILL NOT PUT ON HER O2. RESPIRATORY TO ROOM AND PLACED PT ON HER BIPAP. WILL MONITOR.
[2020-02-11 04:29] VITALS: BP 136/81
[2020-02-11 06:51] LABS: HEMATOCRIT 38.3 % (36.0-48.0); HEMOGLOBIN 12.1 g/dL (12-16); LYMPHOCYTES 8.7 % (15-50); MCH 31.4 pg (26.0-34.0); MCHC 31.6 g/dL (31.0-37.0); MCV 99.5 fL (80.0-100.0); MEAN PLATELET VOLUME 10.5 fL (7.4-10.4); NEUTROPHILS 86.3 % (40-80); PLATELET COUNT 316 10x3/uL (130-400); RBC 3.85 10x6/uL (4.00-5.40); RDW 15.2 % (11.5-14.5); WBC 15.2 10x3/uL (4.8-10.8)
[2020-02-11 06:55] LABS: ANION GAP 6.2 mmol/L (8-16); CALCIUM 8.6 mg/dL (8.5-10.1); CREATININE - SERUM 1.1 mg/dL (0.6-1.3); MAGNESIUM - SERUM 2.4 mg/dL (1.8-2.4); POTASSIUM - SERUM 4.2 mmol/L (3.5-5.1)
--- NOTE | 2020-02-11 07:45 | NUR ---
PT YELLING OUT "I CAN'T BREATH"THRASHING ABOUT IN BED REFUSES O2 OR BIPAP SAY "IT MAKES ME WORSE" PT HITTING AT STAFF PULSE OX ON ROOM AIR [address] PRATT
--- NOTE | 2020-02-11 08:16 | NUR ---
RECEIVED CALL FROM MARCUS PECK APN NEW ORDER RECEIVED AND GIVEN
[2020-02-11 09:00] VITALS: BP 105/52
--- NOTE | 2020-02-11 09:00 | NUR ---
RESTING QUIETLY WEARING O2 6 LPM NC HIGH FLOW WILL CONTINUE TO MONITOR
[2020-02-11 12:00] VITALS: BP 129/81
[2020-02-11 15:00] VITALS: BP 129/92
--- NOTE | 2020-02-11 19:50 | NUR ---
REPORT RECIEVED AND INITIAL ROUNDS COMPLETED. PT'S ROOM IS HOT AND SHE IS HOT. SUBMITTED WORK ORDER FOR AIR CONDITIONER TO BE CHECKED. PT STILL LETHARGIC FROM EARLIER ATIVAN GIVEN. NO DISTRESS. O2 @ 6L/HFNC. SEE ASSESSMENT. CPOC.
[2020-02-11 21:21] VITALS: BP 129/90
[2020-02-12 00:39] VITALS: BP 101/65
--- NOTE | 2020-02-12 06:00 | NUR ---
PT WAS MOVED FROM ROOM 2119 TO 2118 DUE TO NONFUNCTIONING AIR CONDITIONER. ROOM WAS VERY HOT AND PT IS A COPD PATIENT. ONCE PT WAS RELOCATED TO NEW ROOM SHE WAS MUCH MORE COMFORTABLE. BIPAP IN PLACE THE ENTIRE NIGHT. NO CHANGE FROM INITIAL SHIFT ASSESSMENT. PT RESTING WITH CLEAN LINENS AND HAVE CHANGED HER PILLOWCASES WHERE HER PURPLE HAIR KEEPS STAINING THE SHEETS AND CASES. CPOC. CALL LIGHT IN REACH.
[2020-02-12 06:27] VITALS: BP 116/83
[2020-02-12 07:09] LABS: HEMATOCRIT 41.7 % (36.0-48.0); HEMOGLOBIN 12.7 g/dL (12-16); LYMPHOCYTES 8.6 % (15-50); MCH 30.4 pg (26.0-34.0); MCHC 30.5 g/dL (31.0-37.0); MCV 99.8 fL (80.0-100.0); MEAN PLATELET VOLUME 10.3 fL (7.4-10.4); NEUTROPHILS 87.5 % (40-80); PLATELET COUNT 368 10x3/uL (130-400); RBC 4.18 10x6/uL (4.00-5.40); RDW 14.7 % (11.5-14.5); WBC 11.4 10x3/uL (4.8-10.8)
[2020-02-12 07:52] LABS: ANION GAP 11.7 mmol/L (8-16); CALCIUM 8.4 mg/dL (8.5-10.1); CARBON DIOXIDE 34.1 mmol/L (21.0-32.0); CREATININE - SERUM 1.3 mg/dL (0.6-1.3); MAGNESIUM - SERUM 2.6 mg/dL (1.8-2.4); POTASSIUM - SERUM 4.8 mmol/L (3.5-5.1)
[2020-02-12 08:22] VITALS: BP 135/95
[2020-02-12 11:57] VITALS: BP 113/62
--- NOTE | 2020-02-12 12:30 | NUR ---
PT AWOKE AND REQUESTED THAT HER BIPAP BE TAKEN OFF. REMOVED MASK AND PLACED PT ON 6L HIGH FLOW NC. PT BEGAN TO LOUDLY SCREAM THAT WE WERE TRYING TO KILL HER AND THAT SHE WAS SWEATING BUT FREEZING AND THAT SHE WAS GOING TO . PT ALSO STATED THAT SHE WANTED TO LEAVE AND THAT WE ALL HATED HER. ADMININSTERED PRN DOSE OF ATIVAN. WILL CTM.
[2020-02-12 13:05] VITALS: BMI 56.6
[2020-02-12 16:32] VITALS: BP 137/80
[2020-02-12 20:00] VITALS: BP 133/76
--- NOTE | 2020-02-12 23:30 | NUR ---
DR. CALABRESE NOTIFIED OF CRITICAL CO2. BIPAP ADJUSTED 18/5, 45% FIO2
[2020-02-13] VITALS: BP 113/65
[2020-02-13 05:54] LABS: ANION GAP 3.4 mmol/L (8-16); CALCIUM 8.8 mg/dL (8.5-10.1); CREATININE - SERUM 1.1 mg/dL (0.6-1.3); MAGNESIUM - SERUM 2.5 mg/dL (1.8-2.4); POTASSIUM - SERUM 4.3 mmol/L (3.5-5.1)
[2020-02-13 07:17] LABS: CARBON DIOXIDE 40.9 mmol/L (21.0-32.0)
[2020-02-13 07:19] LABS: HEMATOCRIT 40.5 % (36.0-48.0); HEMOGLOBIN 12.2 g/dL (12-16); LYMPHOCYTES 13.3 % (15-50); MCH 30.5 pg (26.0-34.0); MCHC 30.1 g/dL (31.0-37.0); MCV 101.3 fL (80.0-100.0); MEAN PLATELET VOLUME 10.1 fL (7.4-10.4); NEUTROPHILS 81.8 % (40-80); PLATELET COUNT 376 10x3/uL (130-400); RDW 14.4 % (11.5-14.5); WBC 9.8 10x3/uL (4.8-10.8)
[2020-02-13 09:00] VITALS: BP 129/79
[2020-02-13 09:26] VITALS: BP 133/76
--- NOTE | 2020-02-13 10:38 | NUR ---
PT REMOVED BIPAP MASK UPON ENTERING THE ROOM THIS MORNING. SHE WAS SCREAMING IN PAIN STATING THAT HER BACK, NECK, STOMACH, CHEST, AND KNEE HURT. ASSESSED THE PATIENT AND FOUND NO OBJECTIVE DATA TO SUPPORT HER JUSTIFYING SCREAMING IN PAIN. PT WAS HIGHLY ANXIOUS, RESTLESS, AND AGITATED STATING THAT IF WE DIDNT GIVE HER SOMETHING FOR PAIN THAT SHE WOULD LEAVE AND THAT WE HATED HER. SHE WAS THRASHING AROUND IN BED AND REFUSED TO BE REASONED WITH. ADMININSTERED AM MEDICATIONS AND ORDERED DOSE OF ATIVAN PRN. PT THEN AGREED TO PLACE BIPAP MASK BACK ON. PT CURRENTLY ASLEEP WITH EYES CLOSED. RR EVEN AND UNLABORED. WILL CTM.
--- NOTE | 2020-02-13 10:44 | NUR ---
RECEIVED VERBAL ORDERS PER TO ORDER SEROQUEL 25MG BID AND PLACE A PHYSICIAN CONSULT FOR AGITATION AND PARANOIA TO . ORDER PLACED.
[2020-02-13 11:00] VITALS: BP 117/76
[2020-02-13 15:00] VITALS: BP 120/70
[2020-02-13 20:00] VITALS: BP 112/72
[2020-02-14] VITALS: BP 134/78
[2020-02-14 04:00] VITALS: BP 110/77
[2020-02-14 05:51] LABS: ANION GAP 6.3 mmol/L (8-16); CALCIUM 8.9 mg/dL (8.5-10.1); CARBON DIOXIDE 39.8 mmol/L (21.0-32.0); CREATININE - SERUM 1.2 mg/dL (0.6-1.3); MAGNESIUM - SERUM 2.6 mg/dL (1.8-2.4)
[2020-02-14 06:06] LABS: HEMATOCRIT 39.1 % (36.0-48.0); HEMOGLOBIN 11.9 g/dL (12-16); MCH 30.7 pg (26.0-34.0); MCHC 30.4 g/dL (31.0-37.0); MEAN PLATELET VOLUME 10.2 fL (7.4-10.4); PLATELET COUNT 311 10x3/uL (130-400); POTASSIUM - SERUM 5.1 mmol/L (3.5-5.1); RBC 3.87 10x6/uL (4.00-5.40); RDW 14.3 % (11.5-14.5); WBC 11.3 10x3/uL (4.8-10.8)
[2020-02-14 08:30] VITALS: BP 114/75
[2020-02-14 09:13] LABS: IMMUNOGLOBULIN E 82 IU/mL (6-495)
--- NOTE | 2020-02-14 10:40 | NUR ---
BED ALARM WENT OFF IN THE PATIENTS ROOM. ENTERED THE ROOM TO FIND THE PATIENT STANDING ON THE SIDE URINATING IN THE FLOOR. SHE WAS HOLDING ONTO THE SIDE OF THE BED RAILS SCREAMING THAT SHE WAS DOING THE BEST THAT SHE COULD. ATTEMPTED TO WALK THE PATIENT TO THE BATHROOM BUT SHE STATED THAT SHE WAS NOT CAPABLE. PT WAS HOSTILE, COMBATIVE, AGGRESSIVE, AND SCREAMED PROFANITY AT THE STAFF. PLACED PT BACK IN BED AND TURNED BED ALARM ON. WILL CTM.
[2020-02-14 12:00] VITALS: BP 119/81
--- NOTE | 2020-02-14 12:40 | NUR ---
Nutrition Follow-up: Pt aggitated this AM. Nursing reports pt not eating well. Diet: Cardiac Wt: 289# (02/13); 320# (02/08 - stated) Last recorded BM: 02/08 Labs noted: Glu 108, Mg 2.6 Meds noted: Solumedrol, Lasix, KDur, Zofran, Humulin, electrolyte protocol -Encourage PO intake and honor food preferences within diet restrictions. -Offer nutrition supplements. -Monitor wt; noted daily wts ordered. -RD following.
[2020-02-14 20:00] VITALS: BP 119/81
[2020-02-15] VITALS: BP 136/87
[2020-02-15 04:00] VITALS: BP 117/87
[2020-02-15 05:56] LABS: CALCIUM 8.5 mg/dL (8.5-10.1); CREATININE - SERUM 1.4 mg/dL (0.6-1.3); MAGNESIUM - SERUM 2.3 mg/dL (1.8-2.4)
[2020-02-15 06:23] LABS: HEMATOCRIT 40.1 % (36.0-48.0); HEMOGLOBIN 12.4 g/dL (12-16); LYMPHOCYTES 16.1 % (15-50); MCH 31.1 pg (26.0-34.0); MCHC 30.9 g/dL (31.0-37.0); MCV 100.5 fL (80.0-100.0); MEAN PLATELET VOLUME 10.3 fL (7.4-10.4); NEUTROPHILS 79.2 % (40-80); PLATELET COUNT 322 10x3/uL (130-400); RBC 3.99 10x6/uL (4.00-5.40); RDW 14.3 % (11.5-14.5); WBC 8.5 10x3/uL (4.8-10.8)
[2020-02-15 06:47] LABS: ANION GAP 5.1 mmol/L (8-16); POTASSIUM - SERUM 4.3 mmol/L (3.5-5.1)
[2020-02-15 06:48] LABS: CARBON DIOXIDE 41.2 mmol/L (21.0-32.0)
[2020-02-15 11:16] VITALS: BP 112/61
--- NOTE | 2020-02-15 11:42 | NUR ---
PT SEEMS FAR MORE CALM AND COOPERATIVE THIS MORNING. ASSISTED PT TO SITTING UP ON SIDE OF BED AND WALKING TO THE BATHROOM WHERE THE PT VOIDED. RR EVEN AND UNLABORED. WILL CTM.
--- NOTE | 2020-02-15 19:38 | NUR ---
RECIEVED LAYING IN BED WITH HOB ELEVATED. ALERT AND ORIENTED X4. UP AD MEEK. TELEMETRY IN PLACE. IV TO LT FA WITH NS AT KVO. O2@ 7 LITERS PER HF CANNULA. WILL BE NPO AFTER MN FOR AM PROCEDURE. DENIES ANY NEEDS AT THIS TIME.
[2020-02-15 20:04] VITALS: BP 119/74
[2020-02-16 02:41] VITALS: BP 103/68
[2020-02-16 05:57] VITALS: BP 111/87
--- NOTE | 2020-02-16 07:30 | NUR ---
AM ROUNDS- PT RESTING COMFORTABLY IN BED, WITH EYES CLOSED, RESP EVEN AND NONLABORED ON BIPAP. LT FA IV INFUSING NS AT KVO. HEART MONITOR SHOWING ST WITH RATE OF 144. CALL LIGHT IN REACH, BEDSIDE RAILS X2, NAD NOTED, WILL CONTINUE PLAN OF CARE.
[2020-02-16 08:00] VITALS: BP 126/86
[2020-02-16 09:55] LABS: BASOPHILS 0.1 % (0-2); EOSINOPHILS 0 % (0-7); HEMATOCRIT 39.5 % (36.0-48.0); HEMOGLOBIN 11.9 g/dL (12-16); IMMATURE GRANULOCYTES 1.1 % (0-5); LYMPHOCYTES 16.9 % (15-50); MCH 30.3 pg (26.0-34.0); MCHC 30.1 g/dL (31.0-37.0); MCV 100.5 fL (80.0-100.0); MEAN PLATELET VOLUME 10.1 fL (7.4-10.4); MONOCYTES 9.1 % (2-11); NEUTROPHILS 72.8 % (40-80); PLATELET COUNT 339 10x3/uL (130-400); RBC 3.93 10x6/uL (4.00-5.40); RDW 15.5 % (11.5-14.5); WBC 10.2 10x3/uL (4.8-10.8)
[2020-02-16 10:15] LABS: ANION GAP 7.3 mmol/L (8-16); CALCIUM 9.2 mg/dL (8.5-10.1); CREATININE - SERUM 1.3 mg/dL (0.6-1.3); POTASSIUM - SERUM 4.3 mmol/L (3.5-5.1)
--- NOTE | 2020-02-16 10:44 | NUR ---
PT SCREAMING OUT, " I WANT TO GO HOME, I TIRED OF BEING HERE." TRIED TALKING TO PT TO GET HER TO CALM DOWN, AND PT CONTINUED TO SCREAM OUT STATING " YALL DON'T CARE ABOUT ME, YALL ARE MAKING ME WORSE, I JUST WANT TO GO HOME. 0.5MG OF ATIVAN GIVEN AT THIS TIME AND WAS ABLE TO GET PT TO STOP SCREAMING OUT. CALL LIGHT IN REACH, WILL CONTINUE TO MONITOR.
[2020-02-16 11:00] VITALS: BP 122/69
[2020-02-16 12:37] VITALS: Ht 160 cm; Wt 132.8 kg
[2020-02-16 15:00] VITALS: BP 119/72
--- NOTE | 2020-02-16 16:30 | NUR ---
BLOOD SUGAR OF 179, 2UNITS OF HUMULIN R GIVEN PER S/S. ALSO GAVE 5MG OF LOPRESSOR IV. PT DENIES ANY NEEDS AT THIS TIME. CALL LIGHT IN REACH, NAD NOTED, WILL CONTINUE TO MONITOR.
--- NOTE | 2020-02-16 18:33 | NUR ---
PLACED PT ON BILEVEL 18/5 45% TOLERATED APPLICATION WELL TX INLINE ZERO CYANOSIS NO IMMEDIATE S/S RESP DISTRESS NOTED
[2020-02-16 20:00] VITALS: BP 109/74
--- NOTE | 2020-02-16 20:00 | NUR ---
REPORT RECEIVED AND INITIAL ROUNDS COMPLETED. PT RESTING IN BED WITH NO DISTRESS. ROUSES EASILY. CONVERSING APPROPRIATELY. PT TEACHING ON NPO AFTER MIDNIGHT FOR RAI AND POSSIBLE CARDIOVERSION IN AM. CURRENT AFLUTTER 140-150 PER TELEMETRY.
--- NOTE | 2020-02-16 22:00 | NUR ---
PT INCONTINENT OF BOWEL IN BED. CARE PROVIDED.
[2020-02-17] VITALS: BP 116/69
[2020-02-17 04:00] VITALS: BP 116/68
[2020-02-17 05:24] LABS: BASOPHILS 0 % (0-2); EOSINOPHILS 0.3 % (0-7); HEMATOCRIT 40.3 % (36.0-48.0); HEMOGLOBIN 11.9 g/dL (12-16); IMMATURE GRANULOCYTES 0.8 % (0-5); LYMPHOCYTES 28.3 % (15-50); MCH 29.6 pg (26.0-34.0); MCHC 29.5 g/dL (31.0-37.0); MCV 100.2 fL (80.0-100.0); MEAN PLATELET VOLUME 10.5 fL (7.4-10.4); MONOCYTES 8.2 % (2-11); NEUTROPHILS 62.4 % (40-80); PLATELET COUNT 292 10x3/uL (130-400); RBC 4.02 10x6/uL (4.00-5.40); RDW 15.8 % (11.5-14.5); WBC 11.5 10x3/uL (4.8-10.8)
[2020-02-17 05:47] LABS: ANION GAP 4.2 mmol/L (8-16); CALCIUM 9.3 mg/dL (8.5-10.1); CREATININE - SERUM 1.5 mg/dL (0.6-1.3); MAGNESIUM - SERUM 2.5 mg/dL (1.8-2.4); PHOSPHOROUS 3.8 mg/dL (2.5-4.9); POTASSIUM - SERUM 3.9 mmol/L (3.5-5.1)
[2020-02-17 05:49] LABS: CARBON DIOXIDE 40.7 mmol/L (21.0-32.0)
[2020-02-17 08:00] VITALS: BP 137/65
--- NOTE | 2020-02-17 09:00 | NUR ---
RAI AND CARDIOVERSION CANCELLED. DIET AND MEDS RESUMED.
[2020-02-17 11:00] VITALS: BP 94/51
[2020-02-17 15:00] VITALS: BP 111/76
[2020-02-17 20:00] VITALS: BP 118/65
--- NOTE | 2020-02-17 20:00 | NUR ---
COMPLETION OF INITIAL ROUNDS AND ASSESSMENT. PT RESTING IN BED WITH O2 @ 2L/NC. ROUSES EASILY, ANSWERS QUESTIONS APPROPRIATELY. SALINE LOCK TO LFA. ATRIAL FLUTTER 130-140'S. SCHEDULED RAI/CARDIOVERSION HAS BEEN MOVED TO TOMORROW ARM. PT WILL BE NPO AFTER MIDNIGHT. CURRENTLY SON, ROSEANN ALVARADO, WHOM IS ALSO HER POA, IS VISITING IN HER ROOM. CPOC.
[2020-02-18] VITALS: BP 105/71
--- NOTE | 2020-02-18 00:56 | NUR ---
PT AWAKENED AND GIVEN BEDTIME MEDS. FSBS 107. NPO FOR AM RAI/CARDIOVERSION. CURRENTLY UNCONTROLLED ATRIAL FLUTTER AT 144. BIPAP ON FOR SLEEP. NO OTHER NEEDS.
[2020-02-18 04:00] VITALS: BP 98/57
[2020-02-18 06:09] LABS: BASOPHILS 0.1 % (0-2); EOSINOPHILS 0.5 % (0-7); HEMATOCRIT 39.3 % (36.0-48.0); HEMOGLOBIN 11.8 g/dL (12-16); IMMATURE GRANULOCYTES 0.6 % (0-5); LYMPHOCYTES 28.1 % (15-50); MCH 29.9 pg (26.0-34.0); MCV 99.7 fL (80.0-100.0); MEAN PLATELET VOLUME 10.4 fL (7.4-10.4); MONOCYTES 8.8 % (2-11); NEUTROPHILS 61.9 % (40-80); PLATELET COUNT 300 10x3/uL (130-400); RBC 3.94 10x6/uL (4.00-5.40); RDW 15.7 % (11.5-14.5); WBC 10.8 10x3/uL (4.8-10.8)
[2020-02-18 06:43] LABS: ANION GAP 5.1 mmol/L (8-16); CALCIUM 9.1 mg/dL (8.5-10.1); CARBON DIOXIDE 39.9 mmol/L (21.0-32.0); CREATININE - SERUM 1.3 mg/dL (0.6-1.3); MAGNESIUM - SERUM 2.5 mg/dL (1.8-2.4)
--- NOTE | 2020-02-18 07:15 | NUR ---
RECEIVED PT IN BED EYES CLOSED RESP PER BIPAP SKIN W/D COLOR WNL NAD NOTED SON AT BEDSIDE WILL EMILEE NUE TO MONITOR
[2020-02-18 08:10] VITALS: BP 115/52
[2020-02-18 11:24] VITALS: BP 111/78
--- NOTE | 2020-02-18 14:03 | NUR ---
RECEIVED PT BACK FROM CARDIOVERSION AND RAI VIA BED NEW ORDERS RECEIVED AND NOTED
[2020-02-18 17:41] VITALS: BP 100/70
[2020-02-18 21:47] VITALS: BP 108/69
--- NOTE | 2020-02-18 23:30 | NUR ---
1954 INITIAL ROUNDS AND ASSESSMENT COMPLETED. PT ALERT/ORIENTED. ALTERNATES BETWEEN WEARING HER O2 @ 2L/NC AND BIPAP, THAT SHE PLACES ON HERSELF. PT WITH 1200 FLUID RESTRICTION AND STRICT I&O. 2245 BEDTIME MEDS GIVEN. FSBS 193, PT DECLINED SLIDING SCALE INSULIN SAYING SHE HASN'T ATE ALOT TODAY. ASSISTED PT UP TO BATHROOM TO VOID WITH NO DIFFICULTY.
[2020-02-19 00:30] VITALS: BP 99/59
[2020-02-19 04:00] VITALS: BP 136/88
[2020-02-19 07:15] LABS: CALCIUM 9.1 mg/dL (8.5-10.1); CARBON DIOXIDE 37.6 mmol/L (21.0-32.0); CREATININE - SERUM 1.3 mg/dL (0.6-1.3); MAGNESIUM - SERUM 2.6 mg/dL (1.8-2.4); POTASSIUM - SERUM 4.6 mmol/L (3.5-5.1)
[2020-02-19 07:54] LABS: BASOPHILS 0.1 % (0-2); EOSINOPHILS 0.4 % (0-7); HEMATOCRIT 39.7 % (36.0-48.0); IMMATURE GRANULOCYTES 0.7 % (0-5); MCH 30.3 pg (26.0-34.0); MCHC 30.2 g/dL (31.0-37.0); MCV 100.3 fL (80.0-100.0); MEAN PLATELET VOLUME 10.8 fL (7.4-10.4); MONOCYTES 8.5 % (2-11); NEUTROPHILS 66.3 % (40-80); RBC 3.96 10x6/uL (4.00-5.40); WBC 9.8 10x3/uL (4.8-10.8)
[2020-02-19 08:04] LABS: PLATELET COUNT 233 10x3/uL (130-400)
[2020-02-19 08:49] VITALS: BP 100/64
--- NOTE | 2020-02-19 11:44 | NUR ---
NUTRITION F/U PT NPO AFTER MN FOR PROCEDURE. 1200 CC FLUID RESTRICTION. WILL PROVIDE DIET WHEN RESUMED. MONITOR PO INTAKE. RD FOLLOWING
[2020-02-19 12:14] VITALS: BP 114/73
--- NOTE | 2020-02-19 13:36 | NUR ---
REFUSING BATH AND LINEN CHANGE AT THIS TIME.
[2020-02-19 15:23] VITALS: BP 102/65
--- NOTE | 2020-02-19 19:40 | NUR ---
PATIENT IS RESTING COMFORTABLY IN BED. PATIENT IS ALERT AND ORIENTED. SHE IS ON THE BIPAP. PATIENT IS ON TELEMETRY. WE WILL CONTINUE TO MONITOR HER RESPIRATORY STATUS.
[2020-02-19 20:00] VITALS: BP 101/57
--- NOTE | 2020-02-20 04:49 | NUR ---
PATIENT IS SLEEPING. SHE HAS BIPAP ON MOST OF THE NIGHT. SHE IS ON 2 LITERS HI SONG NASAL CANULA ALL OTHER TIMES. WE WILL CONTINUE TO MONITOR HER RESPIRATORY STATUS.
[2020-02-20 06:53] VITALS: BP 105/55
[2020-02-20 08:00] VITALS: BP 109/67
--- NOTE | 2020-02-20 09:35 | EC ---
PATIENT:CLARA CRUM DATE OF SERVICE: 02/09/20 SEX: F MEDICAL RECORD: [id number] DATE OF : 58 LOCATION:D.M2 D.211 AGE OF PATIENT: 59 ADMISSION DATE: 02/09/20 REFERRING PHYSICIAN: INTERPRETING PHYSICIAN: BRAN LARSON MD ECHOCARDIOGRAM REPORT ECHO CHARGES 4 ECHO COMPLETE Date: 02/18/20 CLINICAL DIAGNOSIS: ATRIAL FLUTTER ECHOCARDIOGRAPHIC MEASUREMENTS (adult normal given) AC root (d.<3.7cm) 0 cm LV Septum d (<1.2 cm> 0 cm Valve Excursion 0 cm LV Septum (systole) 0 cm Left Atria (s.<4.0cm> 0 cm LVPW d(<1.2cm) 0 cm RV (d.<2.3cm) 0 cm LVPW (sytole) 0 cm LV diastole(<5.6CM) 0 cm MV E-F(>70mm/sec) 0 cm LV systole 0 cm LVOT Diameter 2.1 cm MV exc.(>10mm) 00 cm Est.ejection fraction (50-75%) % DOPPLER: LVIT cm/sec A 0 cm/sec E 0 cm/sec LA cm/sec RVSP 34.3 mmHg LVOT 89 cm/sec AOP1/2T 0 m/s Asc. Ao 104 cm/sec RVOT 70.0 cm/sec RA 0 cm/sec PA 0 cm/sec AV Gradient Peak 17.7 mmHg AV Mean 12.0 mmHg AV Area 1.6 cm MV Gradient Peak 28.1 mmHg MV Mean 12.0 mmHg MV Area 1.9 cm COMMENTS: PACS Water Commissioner: Juanita KAY Diesel Scoop Operator: 4 Dr. Larson TAPE# PACS Pericardial Effusion N DATE OF SERVICE: Limited echo, difficult to visualize; however, it appears the patient has severe aortic stenosis with likely also severe mitral regurgitation. A RAI may be helpful. TRANSINT:[id number] Voice Confirmation ID: [id number] DOCUMENT ID: [id number] ECHOCARDIOGRAM REPORT [id number] CLARA CRUM TROY R MD at 0935 CC: [id number] DICTATION DATE: 02/19/20 1045 STITCHER FEEDER: 02/19/20 1119 ADM IN [place] [id number] [place] [address]
--- NOTE | 2020-02-20 10:02 | NUR ---
SON SIGNS CONSENTS FOR HC IN AM.
[2020-02-20 10:47] LABS: BASOPHILS 0.1 % (0-2); EOSINOPHILS 1.2 % (0-7); HEMATOCRIT 37.3 % (36.0-48.0); HEMOGLOBIN 11.3 g/dL (12-16); IMMATURE GRANULOCYTES 0.8 % (0-5); LYMPHOCYTES 26.2 % (15-50); MCH 30.9 pg (26.0-34.0); MCHC 30.3 g/dL (31.0-37.0); MCV 101.9 fL (80.0-100.0); MONOCYTES 9.1 % (2-11); NEUTROPHILS 62.6 % (40-80); PLATELET COUNT 195 10x3/uL (130-400); RBC 3.66 10x6/uL (4.00-5.40); RDW 16.2 % (11.5-14.5); WBC 9.7 10x3/uL (4.8-10.8)
[2020-02-20 11:00] VITALS: BP 103/65
[2020-02-20 12:03] LABS: ANION GAP 10.8 mmol/L (8-16); CARBON DIOXIDE 35.5 mmol/L (21.0-32.0); CREATININE - SERUM 1.1 mg/dL (0.6-1.3); MAGNESIUM - SERUM 2.4 mg/dL (1.8-2.4); PHOSPHOROUS 3.5 mg/dL (2.5-4.9); POTASSIUM - SERUM 4.3 mmol/L (3.5-5.1)
[2020-02-20 15:00] VITALS: BP 102/63
[2020-02-20 20:00] VITALS: BP 120/71
[2020-02-21] VITALS: BP 98/58
[2020-02-21 04:00] VITALS: BP 102/70
--- NOTE | 2020-02-21 08:06 | NUR ---
LEAVING FOR APPRAISAL TECHNICIAN BY BED.
[2020-02-21 08:08] LABS: BASOPHILS 0.1 % (0-2); EOSINOPHILS 0.9 % (0-7); HEMATOCRIT 40.7 % (36.0-48.0); HEMOGLOBIN 11.9 g/dL (12-16); IMMATURE GRANULOCYTES 0.5 % (0-5); LYMPHOCYTES 23.1 % (15-50); MCH 29.7 pg (26.0-34.0); MCHC 29.2 g/dL (31.0-37.0); MCV 101.5 fL (80.0-100.0); MEAN PLATELET VOLUME 10.9 fL (7.4-10.4); MONOCYTES 7.3 % (2-11); NEUTROPHILS 68.1 % (40-80); PLATELET COUNT 221 10x3/uL (130-400); RBC 4.01 10x6/uL (4.00-5.40); RDW 16.2 % (11.5-14.5); WBC 10.8 10x3/uL (4.8-10.8)
[2020-02-21 08:29] LABS: ANION GAP 4.9 mmol/L (8-16); CALCIUM 9.1 mg/dL (8.5-10.1); CARBON DIOXIDE 38.6 mmol/L (21.0-32.0); CREATININE - SERUM 1.1 mg/dL (0.6-1.3); MAGNESIUM - SERUM 2.4 mg/dL (1.8-2.4); PHOSPHOROUS 3.3 mg/dL (2.5-4.9); POTASSIUM - SERUM 4.5 mmol/L (3.5-5.1)
--- NOTE | 2020-02-21 09:50 | NUR ---
BACK FROM FIRST COAT OPERATOR. VS WNL. RIGHT GROIN STABLE. WILL MONITOR.
--- NOTE | 2020-02-21 10:53 | NUR ---
BLEEDING NOTED TO RIGHT GROIN. CATHLAB TEAM AT HOLDING PRESSURE AND CHANGING DRSG. NO FEMSTOP NEEDED. WILL MONITOR.
[2020-02-21 11:00] VITALS: BP 112/63
--- NOTE | 2020-02-21 12:05 | NUR ---
BED REST UP GROIN STABLE WITHOUT BLEEDING OR HEMATOMA NOTED. WILL MONITOR.
--- NOTE | 2020-02-21 13:31 | NUR ---
Nutrition Follow-up: NPO for heart cath this AM. Diet: Cardiac, 1200 cc fluid restriction PO intake: 75-100% yesterday Wt: 292# (02/20); 289# (02/13) Labs reviewed Meds noted: Lasix, KDur, Prednisone, Humulin, Protonix, electrolyte protocol -Encourage PO intake and honor food preferences within diet restrictions. -Monitor wt; noted daily wts ordered. -RD following.
[2020-02-21 15:00] VITALS: BP 97/53
--- NOTE | 2020-02-21 19:00 | NUR ---
RECEIVED BEDSIDE REPORT. PATIENT RESTING COMFORTABLY IN BED. RESPIRATIONS ARE EVEN AND UNLABORED. NO S/S OF DISTRESS. NO C/O PAIN. CALL LIGHT WITHIN REACH. WILL CPOC.
[2020-02-21 20:00] VITALS: BP 105/57
[2020-02-22] VITALS: BP 105/61
[2020-02-22 04:00] VITALS: BP 110/66
[2020-02-22 08:00] VITALS: BP 115/71
--- NOTE | 2020-02-22 08:46 | MORECARE ---
CASE MANAGEMENT DISCHARGE SUMMARY PATIENT: VAL CRUM UNIT: [id number] ADM DATE: 02/09/20 AGE: 59 : 58 SEX: F ROOM/BED: D.3429 AUTHOR: LUCIUS,DOC PHYSICIAN: REFERRING PHYSICIAN: JORGE NEGRETE MD DATE OF SERVICE: 02/22/20 Discharge Plan Patient Name: VAL CRUM Facility: [facility]:[place] : 1960 Planned Disposition: Anticipated Discharge Date: Discharge Date: Expected LOS: Initial Reviewer: [id number] Initial Review Date: 02/09/2020 Generated: 02/22/20 9:45 am Comments DCP- Discharge Planning Updated by [email or web address]: Nicole Cohen on 02/22/20 7:[address] CM met with patient to discuss initial discharge planning. Patient is in agreement to proceed with the assessment. Patient reports that she lives at home independently alone. Patient is alert/oriented, able to answer all questions. Stairs/steps: Ramp. PCP: Dr. Lara. [facility]. Patient states she has been able to obtain all of her prescribed medications. HHS: None. DME: O2, Bi-Pap, walker, cane, shower chair, hand held shower.Patient gives permission to speak with family members/care givers. Emergency contact: Mino Metz (son) [phone]. 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 CM discussed the availability of HH, Rehab, SNF, OP Therapy, DME services. Patient is in agreement to 7-10 days of rehab, or HHS. Refuses a SNF bed for rehab. Patient denies hospitalization within the past 30 days. Patient denies the use of community resources SHIPPING PROCESSOR. Transportation at time of discharge: unknown. CM will assist with further dc needs. Coverage Notice Reviewer: [id number] - Nicole Cohen Notice Issued Date-Time: 02/21/2020 16:31 Notice Type: IM Discharge Notice Notice Delivered To: Patient Relationship to Patient: Self Sexual Abuse Counsellor Name: Val Crum Delivery Method: HAND - Hand Delivered Precious Days: Prior Verbal Notification: Recipient Understood Notice: Yes Recipient Signature: Yes Med Rec Note Co-signed by Attending: Coverage Notice Comment: DC IMM signed/to chart. Reviewer: [id number] - Nicole Cohen Notice Issued Date-Time: 02/21/2020 16:31 Notice Type: Patient Choice Letter Notice Delivered To: Patient Relationship to Patient: Self Sexual Abuse Counsellor Name: Saba Crum Delivery Method: HAND - Hand Delivered Precious Days: Prior Verbal Notification: Recipient Understood Notice: Yes Recipient Signature: Yes Med Rec Note Co-signed by Attending: Coverage Notice Comment: Patient choice HHS, no preference. Patient Name: VAL CRUM Page [id number] at 0846 All edits/amendments must be made on the electronic document DICTATION DATE: 02/22/20844 MOTORCYCLE RACER: MARYAN 02/22/20844 RPT#: [id number] DC DATE: STATUS: ADM IN [facility] [address] [place] [address] END OF REPORT
--- NOTE | 2020-02-22 08:52 | MORECARE ---
CASE MANAGEMENT DISCHARGE SUMMARY PATIENT: VAL CRUM UNIT: [id number] ADM DATE: 02/09/20 AGE: 59 : 58 SEX: F ROOM/BED: D.5593 AUTHOR: LUCIUS,DOC PHYSICIAN: REFERRING PHYSICIAN: JORGE NEGRETE MD DATE OF SERVICE: 02/22/20 Discharge Plan Patient Name: VAL CRUM Facility: [facility]:[place] : 1960 Planned Disposition: Anticipated Discharge Date: Discharge Date: Expected LOS: Initial Reviewer: [email or web address] Initial Review Date: 02/09/2020 Generated: 02/22/20 9:52 am DCP- Discharge Planning Updated by [email or web address]: Nicole Cohen on 02/22/20 7:[address] CM met with patient to discuss initial discharge planning. Patient is in agreement to proceed with the assessment. Patient reports that she lives at home independently alone. Patient is alert/oriented, able to answer all questions. Stairs/steps: Ramp. PCP: Dr. Lara. Pharmacy: [facility]. Patient states she has been able to obtain all of her prescribed medications. HHS: None. DME: O2, Bi-Pap, walker, cane, shower chair, hand held shower.Patient gives permission to speak with family members/care givers. Emergency contact: Mino Metz (son) [phone]. 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 CM discussed the availability of HH, Rehab, SNF, OP Therapy, DME services. Patient is in agreement to 7-10 days of rehab, or HHS. Refuses a SNF bed for rehab. Patient denies hospitalization within the past 30 days. Patient denies the use of community resources SENIOR MECHANICAL ESTIMATOR. Transportation at time of discharge: unknown. CM will assist with further dc needs. DCPIA - Discharge Planning Initial Assessment Updated by [id number]: Nicole Cohen on 02/22/20 8:46 am * Is the patient Alert and Oriented? Yes * How many steps to enter\exit or inside your home? Ramp * PCP Dr. Lara * [facility] [place] * Preadmission Environment Home Alone * ADLs Partial Dependent * Equipment Cane CPAP Oxygen Rolling Walker Shower Chair * List name and contact numbers for known caregivers / representatives who currently or will assist patient after discharge: Mino Metz (son) [phone] * Verbal permission to speak to the caregivers and representatives has been obtained from the patient. Yes * Community resources currently utilized None * Additional services required to return to the preadmission environment? Yes * Can the patient safely return to the preadmission environment? No * Has this patient been hospitalized within the prior 30 days at any hospital? No Coverage Notice Reviewer: [id number] Cohen Notice Issued Date-Time: 02/21/2020 16:31 Notice Type: IM Discharge Notice Notice Delivered To: Patient Relationship to Patient: Self Administrative Manager Name: Val Crum Delivery Method: HAND - Hand Delivered Precious Days: Prior Verbal Notification: Recipient Understood Notice: Yes Recipient Signature: Yes Med Rec Note Co-signed by Attending: Coverage Notice Comment: DC IMM signed/to chart. Reviewer: [id number] Qian Cohen Notice Issued Date-Time: 02/21/2020 16:31 Notice Type: Patient Choice Letter Notice Delivered To: Patient Relationship to Patient: Self Administrative Manager Name: Saba Crum Delivery Method: HAND - Hand Delivered Precious Days: Prior Verbal Notification: Recipient Understood Notice: Yes Recipient Signature: Yes Med Rec Note Co-signed by Attending: Coverage Notice Comment: Patient choice HHS, no preference. Last DP export: 02/22/20 7:46 a Patient Name: VAL CRUM Page 19883 at 0852 All edits/amendments must be made on the electronic document DICTATION DATE: 02/22/20851 UTILITY LOCATOR: MARYAN 02/22/20851 RPT#: [id number] DC DATE: STATUS: ADM IN [facility] [address] [place] [address] END OF REPORT
[2020-02-22 09:41] LABS: BASOPHILS 0.1 % (0-2); EOSINOPHILS 0.5 % (0-7); HEMATOCRIT 37.6 % (36.0-48.0); HEMOGLOBIN 11.2 g/dL (12-16); IMMATURE GRANULOCYTES 0.5 % (0-5); LYMPHOCYTES 19.3 % (15-50); MCH 29.9 pg (26.0-34.0); MCHC 29.8 g/dL (31.0-37.0); MCV 100.5 fL (80.0-100.0); MEAN PLATELET VOLUME 10.8 fL (7.4-10.4); MONOCYTES 6.2 % (2-11); NEUTROPHILS 73.4 % (40-80); PLATELET COUNT 236 10x3/uL (130-400); RBC 3.74 10x6/uL (4.00-5.40); RDW 16.1 % (11.5-14.5); WBC 12.8 10x3/uL (4.8-10.8)
[2020-02-22 10:01] LABS: ANION GAP 1.7 mmol/L (8-16); CARBON DIOXIDE 39.9 mmol/L (21.0-32.0); CREATININE - SERUM 1.2 mg/dL (0.6-1.3); MAGNESIUM - SERUM 2.2 mg/dL (1.8-2.4); PHOSPHOROUS 2.9 mg/dL (2.5-4.9)
[2020-02-22 10:03] LABS: POTASSIUM - SERUM 3.6 mmol/L (3.5-5.1)
[2020-02-22 11:00] VITALS: BP 98/50
[2020-02-22 15:00] VITALS: BP 101/55
--- NOTE | 2020-02-22 16:37 | MORECARE ---
CASE MANAGEMENT DISCHARGE SUMMARY PATIENT: VAL CRUM UNIT: [id number] ADM DATE: 02/09/20 AGE: 59 : 58 SEX: F ROOM/BED: D.6423 AUTHOR: LUCIUS,DOC PHYSICIAN: REFERRING PHYSICIAN: JORGE NEGRETE MD DATE OF SERVICE: 02/22/20 Discharge Plan Patient Name: VAL CRUM Facility: [facility]:[place] : 1960 Planned Disposition: Anticipated Discharge Date: Discharge Date: Expected LOS: Initial Reviewer: [email or web address] Initial Review Date: 02/09/2020 Generated: 02/22/20 5:37 pm DCP- Discharge Planning Updated by [email or web address]: Nicole Cohen on 02/22/20 7:[address] CM met with patient to discuss initial discharge planning. Patient is in agreement to proceed with the assessment. Patient reports that she lives at home independently alone. Patient is alert/oriented, able to answer all questions. Stairs/steps: Ramp. PCP: Dr. Lara. Pharmacy: [facility]. Patient states she has been able to obtain all of her prescribed medications. HHS: None. DME: O2, Bi-Pap, walker, cane, shower chair, hand held shower.Patient gives permission to speak with family members/care givers. Emergency contact: Mino Metz (son) [phone]. Patient is partially independent with ADL's, medication management INSPECTOR RECEIVING. CM discussed the availability of HH, Rehab, SNF, OP Therapy, DME services. Patient is in agreement to 7-10 days of rehab, or HHS. Refuses a SNF bed for rehab. Patient denies hospitalization within the past 30 days. Patient denies the use of community resources INSPECTOR RECEIVING. Transportation at time of discharge: unknown. CM will assist with further dc needs. DCPIA - Discharge Planning Initial Assessment Updated by [email or web address]: Nicole Cohen on 02/22/20 8:46 am * Is the patient Alert and Oriented? Yes * How many steps to enter\exit or inside your home? Ramp * PCP Dr. Lara * [facility] * Preadmission Environment Home Alone * ADLs Partial Dependent * Equipment Cane CPAP Oxygen Rolling Walker Shower Chair * List name and contact numbers for known caregivers / representatives who currently or will assist patient after discharge: Mino Metz (son) [phone] * Verbal permission to speak to the caregivers and representatives has been obtained from the patient. Yes * Community resources currently utilized None * Additional services required to return to the preadmission environment? Yes * Can the patient safely return to the preadmission environment? No * Has this patient been hospitalized within the prior 30 days at any hospital? No External Providers External Provider: [facility] Next Contact Date: Service Request Date: Service Type: Resolution: Reviewer: Comments: Coverage Notice Reviewer: [id number] Qian Cohen Notice Issued Date-Time: 02/21/2020 16:31 Notice Type: IM Discharge Notice Notice Delivered To: Patient Relationship to Patient: Self Lead Systems Architect Name: Val Crum Delivery Method: HAND - Hand Delivered Precious Days: Prior Verbal Notification: Recipient Understood Notice: Yes Recipient Signature: Yes Med Rec Note Co-signed by Attending: Coverage Notice Comment: DC IMM signed/to chart. Reviewer: [id number] Qian Cohen Notice Issued Date-Time: 02/21/2020 16:31 Notice Type: Patient Choice Letter Notice Delivered To: Patient Relationship to Patient: Self Lead Systems Architect Name: Saba Crum Delivery Method: HAND - Hand Delivered Precious Days: Prior Verbal Notification: Recipient Understood Notice: Yes Recipient Signature: Yes Med Rec Note Co-signed by Attending: Coverage Notice Comment: Patient choice HHS, no preference. Last DP export: 02/22/20 7:52 a Patient Name: VAL CRUM Page [id number] at 1637 All edits/amendments must be made on the electronic document DICTATION DATE: 02/22/20 1637 NITRIC ACID PLANT OPERATOR: MARYAN 02/22/20 1637 RPT#: [id number] DC DATE: STATUS: ADM IN [facility] [address] [place] [address] END OF REPORT
--- NOTE | 2020-02-22 16:45 | MORECARE ---
CASE MANAGEMENT DISCHARGE SUMMARY PATIENT: VAL CRUM UNIT: [id number] ADM DATE: 02/09/20 AGE: 59 : 58 SEX: F ROOM/BED: D.4335 AUTHOR: LUCIUS,DOC PHYSICIAN: REFERRING PHYSICIAN: JORGE NEGRETE MD DATE OF SERVICE: 02/22/20 Discharge Plan Patient Name: VAL CRUM Facility: [facility]:[place] : 1960 Planned Disposition: Anticipated Discharge Date: Discharge Date: Expected LOS: Initial Reviewer: [id number] Initial Review Date: 02/09/2020 Generated: 02/22/20 5:44 pm Comments DCP- Discharge Planning Updated by [email or web address]: Nicole Cohen on 02/22/20 3:[address] [facility] with [facility], notified of need for Trilogy, upon DC. CM faxed required information to [employer] phone #[phone], Fx #[phone]. CM will notify [employer] c s s representative when patient when DC date is known. DCP- Discharge Planning Updated by [email or web address]: Nicole Cohen on 02/22/20 7:[address] CM met with patient to discuss initial discharge planning. Patient is in agreement to proceed with the assessment. Patient reports that she lives at home independently alone. Patient is alert/oriented, able to answer all questions. Stairs/steps: Ramp. PCP: Dr. Lara. Pharmacy: [facility]. Patient states she has been able to obtain all of her prescribed medications. HHS: None. DME: O2, Bi-Pap, walker, cane, shower chair, hand held shower.Patient gives permission to speak with family members/care givers. Emergency contact: Mino Metz (son) [phone]. 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 CM discussed the availability of HH, Rehab, SNF, OP Therapy, DME services. Patient is in agreement to 7-10 days of rehab, or HHS. Refuses a SNF bed for rehab. Patient denies hospitalization within the past 30 days. Patient denies the use of community resources REEL WINDER. Transportation at time of discharge: unknown. CM will assist with further dc needs. DCPIA - Discharge Planning Initial Assessment Updated by [email or web address]: Nicole Cohen on 02/22/20 8:46 am * Is the patient Alert and Oriented? Yes * How many steps to enter\exit or inside your home? Ramp * PCP Dr. Lara * Pharmacy [facility] * Preadmission Environment Home Alone * ADLs Partial Dependent * Equipment Cane CPAP Oxygen Rolling Walker Shower Chair * List name and contact numbers for known caregivers / representatives who currently or will assist patient after discharge: Mino Metz (son) [phone] * Verbal permission to speak to the caregivers and representatives has been obtained from the patient. Yes * Community resources currently utilized None * Additional services required to return to the preadmission environment? Yes * Can the patient safely return to the preadmission environment? No * Has this patient been hospitalized within the prior 30 days at any hospital? No Coverage Notice Reviewer: [id number] Qian Cohen Notice Issued Date-Time: 02/21/2020 16:31 Notice Type: IM Discharge Notice Notice Delivered To: Patient Relationship to Patient: Self Hair Mixer Name: Val Crum Delivery Method: HAND - Hand Delivered Precious Days: Prior Verbal Notification: Recipient Understood Notice: Yes Recipient Signature: Yes Med Rec Note Co-signed by Attending: Coverage Notice Comment: DC IMM signed/to chart. Reviewer: [email or web address] Qian Cohen Notice Issued Date-Time: 02/21/2020 16:31 Notice Type: Patient Choice Letter Notice Delivered To: Patient Relationship to Patient: Self Hair Mixer Name: Saba Curm Delivery Method: HAND - Hand Delivered Precious Days: Prior Verbal Notification: Recipient Understood Notice: Yes Recipient Signature: Yes Med Rec Note Co-signed by Attending: Coverage Notice Comment: Patient choice HHS, no preference. Last DP export: 02/22/20 3:37 p Patient Name: VAL CRUM Page [phone] at 1645 All edits/amendments must be made on the electronic document DICTATION DATE: 02/22/201643 CHANGE NUMBER OPERATOR: MARYAN 02/22/201643 RPT#: [id number] DC DATE: STATUS: ADM IN [facility] [address] [place] [address] END OF REPORT
--- NOTE | 2020-02-22 16:59 | MORECARE ---
CASE MANAGEMENT DISCHARGE SUMMARY PATIENT: VAL CRUM UNIT: [id number] ADM DATE: 02/09/20 AGE: 59 : 58 SEX: F ROOM/BED: D.5046 AUTHOR: LUCIUS,DOC PHYSICIAN: REFERRING PHYSICIAN: JORGE NEGRETE MD DATE OF SERVICE: 02/22/20 Discharge Plan Patient Name: VAL CRUM Facility: [facility]:[place] : 1960 Planned Disposition: Anticipated Discharge Date: Discharge Date: Expected LOS: Initial Reviewer: [id number] Initial Review Date: 02/09/2020 Generated: 02/22/20 5:58 pm Comments DCP- Discharge Planning Updated by [email or web address]: Nicole Cohen on 02/22/20 3:[address] [facility] with [facility], notified of need for Trilogy, upon DC. CM faxed required information to [employer] phone #[phone], Fx #[phone]. CM will notify [employer] financial services sales representative when patient when DC date is known. DCP- Discharge Planning Updated by [email or web address]: Nicole Cohen on 02/22/20 7:[address] CM met with patient to discuss initial discharge planning. Patient is in agreement to proceed with the assessment. Patient reports that she lives at home independently alone. Patient is alert/oriented, able to answer all questions. Stairs/steps: Ramp. PCP: Dr. Lara. Pharmacy: [facility]. Patient states she has been able to obtain all of her prescribed medications. HHS: None. DME: O2, Bi-Pap, walker, cane, shower chair, hand held shower.Patient gives permission to speak with family members/care givers. Emergency contact: Mino Metz (son) [phone]. 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 CM discussed the availability of HH, Rehab, SNF, OP Therapy, DME services. Patient is in agreement to 7-10 days of rehab, or HHS. Refuses a SNF bed for rehab. Patient denies hospitalization within the past 30 days. Patient denies the use of community resources DRY GOODS INSPECTOR. Transportation at time of discharge: unknown. CM will assist with further dc needs. DCPIA - Discharge Planning Initial Assessment Updated by [email or web address]: Nicole Cohen on 02/22/20 8:46 am * Is the patient Alert and Oriented? Yes * How many steps to enter\exit or inside your home? Ramp * PCP Dr. Lara * Pharmacy [facility] * Preadmission Environment Home Alone * ADLs Partial Dependent * Equipment Cane CPAP Oxygen Rolling Walker Shower Chair * List name and contact numbers for known caregivers / representatives who currently or will assist patient after discharge: Mino Metz (son) [phone] * Verbal permission to speak to the caregivers and representatives has been obtained from the patient. Yes * Community resources currently utilized None * Additional services required to return to the preadmission environment? Yes * Can the patient safely return to the preadmission environment? No * Has this patient been hospitalized within the prior 30 days at any hospital? No Coverage Notice Reviewer: [email or web address] Qian Cohen Notice Issued Date-Time: 02/21/2020 16:31 Notice Type: IM Discharge Notice Notice Delivered To: Patient Relationship to Patient: Self Coal Screener Name: Val Crum Delivery Method: HAND - Hand Delivered Precious Days: Prior Verbal Notification: Recipient Understood Notice: Yes Recipient Signature: Yes Med Rec Note Co-signed by Attending: Coverage Notice Comment: DC IMM signed/to chart. Reviewer: [id number] Qian Cohen Notice Issued Date-Time: 02/21/2020 16:31 Notice Type: Patient Choice Letter Notice Delivered To: Patient Relationship to Patient: Self Coal Screener Name: Saba Crum Delivery Method: HAND - Hand Delivered Precious Days: Prior Verbal Notification: Recipient Understood Notice: Yes Recipient Signature: Yes Med Rec Note Co-signed by Attending: Coverage Notice Comment: Patient choice HHS, no preference. Last DP export: 02/22/20 3:45 p Patient Name: VAL CRUM Page [phone] at 1659 All edits/amendments must be made on the electronic document DICTATION DATE: 02/22/201657 MARINE HABITAT RESOURCE SPECIALIST: MARYAN 02/22/201657 RPT#: [id number] DC DATE: STATUS: ADM IN [facility] [address] [place] [address] END OF REPORT
--- NOTE | 2020-02-22 19:00 | NUR ---
RECEIVED BEDSIDE REPORT. PATIENT IS ALERT AND ORIENTED, RESTING COMFORTABLY IIN BED. RESPIRATIONS ARE EVEN AND UNLABORED. NO S/S OF DISTRESS. NO C/O PAIN. CALL LIGHT WITHIN REACH. WILL CPOC.
[2020-02-22 20:54] VITALS: BP 86/40
--- NOTE | 2020-02-22 22:30 | NUR ---
PATIENT RESTING COMFORTABLY IN BED. RESPIRATIONS ARE EVEN AND UNLABORED. NO S/S OF DISTRESS. NO C/O PAIN. CALL LIGHT WITHIN REACH. WILL CPOC.
--- NOTE | 2020-02-23 01:50 | NUR ---
PATIENT RESTING COMFORTABLY IN BED. RESPIRATIONS ARE EVEN AND UNLABORED. NO S/S OF DISTRESS. NO C/O PAIN. CALL LIGHT WIITHIN REACH. WILL CPOC.
[2020-02-23 04:46] VITALS: BP 120/59
[2020-02-23 09:11] LABS: ANION GAP 3.2 mmol/L (8-16); CALCIUM 8.9 mg/dL (8.5-10.1); CARBON DIOXIDE 36.8 mmol/L (21.0-32.0); CREATININE - SERUM 1.2 mg/dL (0.6-1.3)
[2020-02-23 09:17] LABS: BASOPHILS 0 % (0-2); EOSINOPHILS 0.9 % (0-7); HEMATOCRIT 35.2 % (36.0-48.0); HEMOGLOBIN 10.7 g/dL (12-16); IMMATURE GRANULOCYTES 0.5 % (0-5); MCH 30.1 pg (26.0-34.0); MCHC 30.4 g/dL (31.0-37.0); MCV 99.2 fL (80.0-100.0); MEAN PLATELET VOLUME 10.6 fL (7.4-10.4); MONOCYTES 4.5 % (2-11); NEUTROPHILS 71.1 % (40-80); PLATELET COUNT 229 10x3/uL (130-400); RBC 3.55 10x6/uL (4.00-5.40); RDW 16.2 % (11.5-14.5); WBC 11.7 10x3/uL (4.8-10.8)
[2020-02-23 10:58] VITALS: BP 97/56
[2020-02-23 15:27] VITALS: BP 105/57
--- NOTE | 2020-02-23 15:57 | NUR ---
PT STATES THAT SHE FEELS BETTER THAN SHE HAS IN A REALLY LONG TIME. PT IS POSITIVE AND IN GOOD SPIRITS STATIING SHE IS READY TO SEE HER FAMILY. WILL CTM.
[2020-02-23 20:47] VITALS: BP 91/52
[2020-02-24 04:30] VITALS: BP 100/52
--- NOTE | 2020-02-24 06:00 | NUR ---
PT HAS RESTED THIS SHIFT. NO DISTRESS. HAS WORN HER O2 @ 2L/NC OR BIPAP. SEE ASSESSMENT. CPOC. CALL LIGHT IN REACH.
[2020-02-24 06:33] LABS: ANION GAP 5.5 mmol/L (8-16); CALCIUM 8.9 mg/dL (8.5-10.1); CARBON DIOXIDE 35.3 mmol/L (21.0-32.0)
[2020-02-24 06:42] LABS: POTASSIUM - SERUM 5.8 mmol/L (3.5-5.1)
[2020-02-24 08:26] LABS: BASOPHILS 0.1 % (0-2); EOSINOPHILS 0.9 % (0-7); HEMATOCRIT 35.4 % (36.0-48.0); HEMOGLOBIN 10.6 g/dL (12-16); IMMATURE GRANULOCYTES 0.4 % (0-5); LYMPHOCYTES 26.5 % (15-50); MCH 29.8 pg (26.0-34.0); MCHC 29.9 g/dL (31.0-37.0); MCV 99.4 fL (80.0-100.0); MEAN PLATELET VOLUME 10.6 fL (7.4-10.4); MONOCYTES 7.7 % (2-11); NEUTROPHILS 64.4 % (40-80); PLATELET COUNT 218 10x3/uL (130-400); RBC 3.56 10x6/uL (4.00-5.40); RDW 16.4 % (11.5-14.5); WBC 12.2 10x3/uL (4.8-10.8)
[2020-02-24 09:17] VITALS: BP 99/39
--- NOTE | 2020-02-24 10:48 | NUR ---
IV RESTARTED WITH 20 GAUGE CATH X 1 STICK BY REGINALD CEJA. LINE IS PATENT.
[2020-02-24 12:08] VITALS: BP 94/48
--- NOTE | 2020-02-24 19:21 | NUR ---
INITIAL ROUNDS COMPLETED. PT DENIES ANY DISCOMFORT. CALL LIGHT WITHIN REACH.
[2020-02-24 20:47] VITALS: BP 94/30
--- NOTE | 2020-02-24 22:19 | NUR ---
ASSESSMENT COMPLETED AT 1940 HRS. VSS. ALERT AND ORIENTED TO PERSON,PLACE AND TIME. CROWDER. IV TO L WRIST SL. LUNGS DIMINISHED IN BASES BILAT. BIPAP IN USE. CROWDER. PALPABLE PERIPHERAL PULSES. PM FSBS 188. 2 UNITS REG INSULIN GIVEN SUB-Q TO UPPER R ARM. PM MEDS GIVEN. IV OCCLUSED. DC'D WITH CATHETER INTACT. NEW IV STARTED AT 2215 HRS. #22 TO L HAND WITH ATTEMPT X2, PT TOLERATED ACTIVITY WELL. PM SNACK SERVED. SR UP X2, CALL LIGHT WITHIN REACH.
[2020-02-25 00:18] VITALS: BP 110/60
--- NOTE | 2020-02-25 02:50 | NUR ---
PT IN BATHROOM. DENIES ANY NEEDS.
[2020-02-25 04:02] VITALS: BP 96/42
--- NOTE | 2020-02-25 04:26 | NUR ---
PT RESTING WITH EYES CLOSED. RESP EVEN AND REGULAR. SR UP X1, CALL LIGHT WITHIN REACH AND BED ALARM ON.
[2020-02-25 06:14] LABS: BASOPHILS 0.1 % (0-2); EOSINOPHILS 0.8 % (0-7); HEMOGLOBIN 10.4 g/dL (12-16); IMMATURE GRANULOCYTES 0.3 % (0-5); LYMPHOCYTES 22.5 % (15-50); MCH 30.9 pg (26.0-34.0); MCHC 30.6 g/dL (31.0-37.0); MCV 100.9 fL (80.0-100.0); MEAN PLATELET VOLUME 10.6 fL (7.4-10.4); MONOCYTES 9.1 % (2-11); NEUTROPHILS 67.2 % (40-80); PLATELET COUNT 213 10x3/uL (130-400); RBC 3.37 10x6/uL (4.00-5.40); RDW 16.8 % (11.5-14.5); WBC 10.1 10x3/uL (4.8-10.8)
--- NOTE | 2020-02-25 06:15 | NUR ---
VSS THROUGHOUT NIGHT. SR PER CM. PT RESTED WELL DURING SHIFT. NEEDS MET; WILL CONTINUE TO MONITOR.
--- NOTE | 2020-02-25 07:00 | NUR ---
RECEIVED REPORT. ASSUMED CARE OF PATIENT. CALL LIGHT WITHIN REACH. RT AT BEDSIDE. BIPAP OFF AT THIS TIME. DENIES NEEDS. NO DISTRESS. BEDSIDE SHIFT REPORT COMPLETE. WHITE BOARD UPDATED.
[2020-02-25 07:09] LABS: ANION GAP 5.7 mmol/L (8-16); CALCIUM 8.8 mg/dL (8.5-10.1); CREATININE - SERUM 1.1 mg/dL (0.6-1.3); POTASSIUM - SERUM 4.7 mmol/L (3.5-5.1)
--- NOTE | 2020-02-25 07:30 | NUR ---
FAMILY AT BEDSIDE COMPLAINING OF CARES. NURSE TOUCHER UP PANKAJ AT BEDSIDE TO ADDRESS COMPLAINTS.
[2020-02-25 10:33] VITALS: BP 103/49
--- NOTE | 2020-02-25 11:22 | NUR ---
FSBS 98. NO INSULIN PER SLIDING SCALE.
[2020-02-25 14:24] VITALS: BP 93/48
--- NOTE | 2020-02-25 16:06 | MORECARE ---
CASE MANAGEMENT DISCHARGE SUMMARY PATIENT: VAL CRUM UNIT: [id number] ADM DATE: 02/09/20 AGE: 59 : 58 SEX: F ROOM/BED: D.0009 AUTHOR: LUCIUS,DOC PHYSICIAN: REFERRING PHYSICIAN: JORGE NEGRETE MD DATE OF SERVICE: 02/25/20 Discharge Plan Patient Name: VAL CRUM Facility: [facility]:[place] : 1960 Planned Disposition: Anticipated Discharge Date: Discharge Date: Expected LOS: Initial Reviewer: [email or web address] Initial Review Date: 02/09/2020 Generated: 02/25/20 5:05 pm Comments DCP- Discharge Planning Updated by [id number]: Nicole Cohen on 02/25/20 2:[address] CM faxed additional information to Mirella, with [facility], regarding documentation for Trilogy. DCP- Discharge Planning Updated by [email or web address]: Nicole Cohen on 02/22/20 3:[address] Crystal with [facility], notified of need for Trilogy, upon DC. CM faxed required information to [facility] phone #[phone], Fx #[phone]. CM will notify [employer] sales representative when patient when DC date is known. DCP- Discharge Planning Updated by [email or web address]: Nicole Cohen on 02/22/20 7:[address] CM met with patient to discuss initial discharge planning. Patient is in agreement to proceed with the assessment. Patient reports that she lives at home independently alone. Patient is alert/oriented, able to answer all questions. Stairs/steps: Ramp. PCP: Dr. Lara. Pharmacy: [facility]. Patient states she has been able to obtain all of her prescribed medications. HHS: None. DME: O2, Bi-Pap, walker, cane, shower chair, hand held shower.Patient gives permission to speak with family members/care givers. Emergency contact: Mino Metz (son) [phone]. 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 CM discussed the availability of HH, Rehab, SNF, OP Therapy, DME services. Patient is in agreement to 7-10 days of rehab, or HHS. Refuses a SNF bed for rehab. Patient denies hospitalization within the past 30 days. 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 Transportation at time of discharge: unknown. CM will assist with further dc needs. DCPIA - Discharge Planning Initial Assessment Updated by [email or web address]: Nicole Cohen on 02/22/20 8:46 am * Is the patient Alert and Oriented? Yes * How many steps to enter\exit or inside your home? Ramp * PCP Dr. Lara * Pharmacy [facility] * Preadmission Environment Home Alone * ADLs Partial Dependent * Equipment Cane CPAP Oxygen Rolling Walker Shower Chair * List name and contact numbers for known caregivers / representatives who currently or will assist patient after discharge: Mino Metz (son) [phone] * Verbal permission to speak to the caregivers and representatives has been obtained from the patient. Yes * Community resources currently utilized None * Additional services required to return to the preadmission environment? Yes * Can the patient safely return to the preadmission environment? No * Has this patient been hospitalized within the prior 30 days at any hospital? No Coverage Notice Reviewer: [id number] Qian Cohen Notice Issued Date-Time: 02/21/2020 16:31 Notice Type: IM Discharge Notice Notice Delivered To: Patient Relationship to Patient: Self Foreman Shipping Department Name: Val Crum Delivery Method: HAND - Hand Delivered Precious Days: Prior Verbal Notification: Recipient Understood Notice: Yes Recipient Signature: Yes Med Rec Note Co-signed by Attending: Coverage Notice Comment: DC IMM signed/to chart. Reviewer: [email or web address] Qian Cohen Notice Issued Date-Time: 02/21/2020 16:31 Notice Type: Patient Choice Letter Notice Delivered To: Patient Relationship to Patient: Self Foreman Shipping Department Name: Saba Crum Delivery Method: HAND - Hand Delivered Precious Days: Prior Verbal Notification: Recipient Understood Notice: Yes Recipient Signature: Yes Med Rec Note Co-signed by Attending: Coverage Notice Comment: Patient choice HHS, no preference. Last DP export: 02/22/20 3:58 p Patient Name: VAL CRUM Page 19661 at 1606 All edits/amendments must be made on the electronic document DICTATION DATE: 02/25/201604 SENIOR COURT OFFICE ASSISTANT: MARYAN 02/25/201604 RPT#: [id number] DC DATE: STATUS: ADM IN [facility] [address] [place] [address] END OF REPORT
--- NOTE | 2020-02-25 16:24 | NUR ---
FSBS 136. NO INSULIN ADMINISTRATION PER SLIDING SCALE.
--- NOTE | 2020-02-25 19:32 | NUR ---
REPORT RECEIVED AND ROUNDING COMPLETE. PATIENT LAYING IN BED IN SUPINE POSITION WEARING BIPAP AT THIS TIME. PATIENT HAS A LEFT HAND PIV. PATIENT STATES SHE HAS NO NEEDS AT THIS TIME JUST TO GET SOME REST. CALL LIGHT WITHIN REACH AND BED IN LOWEST LOCKED POSITION.
[2020-02-25 20:29] VITALS: BP 99/53
[2020-02-26 00:33] VITALS: BP 96/54
[2020-02-26 05:51] VITALS: BP 119/79
[2020-02-26 07:13] LABS: BASOPHILS 0 % (0-2); EOSINOPHILS 1.5 % (0-7); HEMATOCRIT 36.7 % (36.0-48.0); HEMOGLOBIN 10.8 g/dL (12-16); IMMATURE GRANULOCYTES 0.4 % (0-5); MCH 29.8 pg (26.0-34.0); MCHC 29.4 g/dL (31.0-37.0); MCV 101.1 fL (80.0-100.0); MEAN PLATELET VOLUME 10.8 fL (7.4-10.4); MONOCYTES 8.3 % (2-11); NEUTROPHILS 65.8 % (40-80); PLATELET COUNT 225 10x3/uL (130-400); RBC 3.63 10x6/uL (4.00-5.40); RDW 16.9 % (11.5-14.5); WBC 9.9 10x3/uL (4.8-10.8)
[2020-02-26 07:32] LABS: ANION GAP 7.3 mmol/L (8-16); CALCIUM 9.1 mg/dL (8.5-10.1); CARBON DIOXIDE 35.9 mmol/L (21.0-32.0); CREATININE - SERUM 1.1 mg/dL (0.6-1.3); POTASSIUM - SERUM 4.2 mmol/L (3.5-5.1)
[2020-02-26 08:00] VITALS: BP 115/66
[2020-02-26 11:00] VITALS: BP 110/60
--- NOTE | 2020-02-26 12:13 | NUR ---
Nutrition Follow-up: Pt sleeping soundly at time of visit this AM. Chart reviewed. Noted RAI planned for today. Diet: NPO PO intake: 75-100% WT: 297.6# (02/25); 285# (02/18) Labs noted: Glu 65 Meds noted: Lasix, Prednisone, Protonix, electrolyte protocol -Rec resume diet following procedure as medically feasible. -Monitor wt; noted daily wts ordered. -RD following.
[2020-02-26 15:00] VITALS: BP 98/60
--- NOTE | 2020-02-26 19:39 | NUR ---
RECEIVED BEDSIDE REPOT. PATIENT IS ALERT AND ORIENTED, RESTING COMFORTABLY IN BED. RESPIRATIONS ARE EVEN AND UNLABORED. NO S/S OF DISTRESS. NO C/O PAIN. CALL LIGHT WITHIN REACH. WILL CPOC.
[2020-02-26 20:50] VITALS: BP 95/44
[2020-02-27 00:39] VITALS: BP 90/45
--- NOTE | 2020-02-27 01:03 | NUR ---
PATIENT RESTING COMFORTABLY IN BED. RESPIRATIONS ARE EVEN AND UNLABORED. PATIENT REMAINS ON BIPAP. NO S/S OF DISTRESS. NO C/O PAIN. CALL LIGHT WITHIN REACH. WILL CPOC.
--- NOTE | 2020-02-27 03:34 | NUR ---
PATIENT RESTING COMFORTABLY IN BED. RESPIRATIONS ARE EVEN AND UNLABORED. NO S/S OF DISTRESS. NO C/O PAIN. CALL LIGHT WITHIN REACH. WILL CPOC.
[2020-02-27 05:13] VITALS: BP 105/64
[2020-02-27 06:11] LABS: BASOPHILS 0 % (0-2); EOSINOPHILS 1.7 % (0-7); HEMATOCRIT 35.5 % (36.0-48.0); HEMOGLOBIN 10.5 g/dL (12-16); IMMATURE GRANULOCYTES 0.2 % (0-5); LYMPHOCYTES 28.4 % (15-50); MCH 29.8 pg (26.0-34.0); MCHC 29.6 g/dL (31.0-37.0); MCV 100.9 fL (80.0-100.0); MEAN PLATELET VOLUME 10.6 fL (7.4-10.4); MONOCYTES 7.5 % (2-11); NEUTROPHILS 62.2 % (40-80); PLATELET COUNT 237 10x3/uL (130-400); RBC 3.52 10x6/uL (4.00-5.40); RDW 16.8 % (11.5-14.5); WBC 8.3 10x3/uL (4.8-10.8)
[2020-02-27 06:39] LABS: ANION GAP 5.2 mmol/L (8-16); CALCIUM 9.2 mg/dL (8.5-10.1); CARBON DIOXIDE 39.8 mmol/L (21.0-32.0); CREATININE - SERUM 1.1 mg/dL (0.6-1.3)
[2020-02-27 08:59] VITALS: BP 133/76
[2020-02-27 13:21] VITALS: BP 108/55
[2020-02-27] MEDS ORDERED: LASIX40 MG PO (14:15)
--- NOTE | 2020-02-27 15:14 | MORECARE ---
CASE MANAGEMENT DISCHARGE SUMMARY PATIENT: VAL CRUM UNIT: [id number] ADM DATE: 02/09/20 AGE: 59 : 58 SEX: F ROOM/BED: D.5474 AUTHOR: LUCIUS,DOC PHYSICIAN: REFERRING PHYSICIAN: JORGE NEGRETE MD DATE OF SERVICE: 02/27/20 Discharge Plan Patient Name: VAL CRUM Facility: [facility]:[place] : 1960 Planned Disposition: Home Health Service Anticipated Discharge Date: 02/27/20 Discharge Date: Expected LOS: 18 Initial Reviewer: [email or web address] Initial Review Date: 02/09/2020 Generated: 02/27/20 4:14 pm Comments DCP- Discharge Planning Updated by [email or web address]: Nicole Cohen on 02/25/20 2:[address] CM faxed additional information to Mirella, with [facility], regarding documentation for Trilogy. DCP- Discharge Planning Updated by [email or web address]: Nicole Cohen on 02/22/20 3:[address] Crystal with [facility], notified of need for Trilogy, upon DC. CM faxed required information to [facility] phone #[phone], Fx #[phone]. CM will notify [employer] medical representative when patient when DC date is known. DCP- Discharge Planning Updated by [email or web address]: Nicole Cohen on 02/22/20 7:[address] CM met with patient to discuss initial discharge planning. Patient is in agreement to proceed with the assessment. Patient reports that she lives at home independently alone. Patient is alert/oriented, able to answer all questions. Stairs/steps: Ramp. PCP: Dr. Lara. Pharmacy: [facility]. Patient states she has been able to obtain all of her prescribed medications. HHS: None. DME: O2, Bi-Pap, walker, cane, shower chair, hand held shower.Patient gives permission to speak with family members/care givers. Emergency contact: Mino Metz (son) [phone]. 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 CM discussed the availability of HH, Rehab, SNF, OP Therapy, DME services. Patient is in agreement to 7-10 days of rehab, or HHS. Refuses a SNF bed for rehab. Patient denies hospitalization within the past 30 days. 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 Transportation at time of discharge: unknown. CM will assist with further dc needs. DCPIA - Discharge Planning Initial Assessment Updated by [email or web address]: Nicole Cohen on 02/22/20 8:46 am * Is the patient Alert and Oriented? Yes * How many steps to enter\exit or inside your home? Ramp * PCP Dr. Lara * Pharmacy [facility] * Preadmission Environment Home Alone * ADLs Partial Dependent * Equipment Cane CPAP Oxygen Rolling Walker Shower Chair * List name and contact numbers for known caregivers / representatives who currently or will assist patient after discharge: Mino Metz (son) [phone] * Verbal permission to speak to the caregivers and representatives has been obtained from the patient. Yes * Community resources currently utilized None * Additional services required to return to the preadmission environment? Yes * Can the patient safely return to the preadmission environment? No * Has this patient been hospitalized within the prior 30 days at any hospital? No Coverage Notice Reviewer: [email or web address] Qian Cohen Notice Issued Date-Time: 02/21/2020 16:31 Notice Type: IM Discharge Notice Notice Delivered To: Patient Relationship to Patient: Self Neuropsychologist Name: Val Crum Delivery Method: HAND - Hand Delivered Precious Days: Prior Verbal Notification: Recipient Understood Notice: Yes Recipient Signature: Yes Med Rec Note Co-signed by Attending: Coverage Notice Comment: DC IMM signed/to chart. Reviewer: [id number] Qian Cohen Notice Issued Date-Time: 02/21/2020 16:31 Notice Type: Patient Choice Letter Notice Delivered To: Patient Relationship to Patient: Self Neuropsychologist Name: Saba Crum Delivery Method: HAND - Hand Delivered Precious Days: Prior Verbal Notification: Recipient Understood Notice: Yes Recipient Signature: Yes Med Rec Note Co-signed by Attending: Coverage Notice Comment: Patient choice HHS, no preference. Last DP export: 02/25/20 3:06 p Patient Name: VAL CRUM Page [id number] at 1514 All edits/amendments must be made on the electronic document DICTATION DATE: 02/27/201513 SENIOR ARCHITECT: MARYAN 02/27/201513 RPT#: [id number] LA DATE: STATUS: ADM IN [facility] [address] [place] [address] END OF REPORT
--- NOTE | 2020-02-27 15:48 | MORECARE ---
CASE MANAGEMENT DISCHARGE SUMMARY PATIENT: VAL CRUM UNIT: [id number] ADM DATE: 02/09/20 AGE: 59 : 58 SEX: F ROOM/BED: D.4535 AUTHOR: LUCIUS,DOC PHYSICIAN: REFERRING PHYSICIAN: JORGE NEGRETE MD DATE OF SERVICE: 02/27/20 Discharge Plan Patient Name: VAL CRUM Facility: [facility]:[place] : 1960 Planned Disposition: Home Health Service Anticipated Discharge Date: 02/27/20 Discharge Date: Expected LOS: 18 Initial Reviewer: [email or web address] Initial Review Date: 02/09/2020 Generated: 02/27/20 4:47 pm Comments DCP- Discharge Planning Updated by [id number]: Nicole Cohen on 02/25/20 2:[address] CM faxed additional information to Mirella, with [facility], regarding documentation for Trilogy. DCP- Discharge Planning Updated by [email or web address]: Nicole Cohen on 02/22/20 3:[address] Crystal with [facility], notified of need for Trilogy, upon DC. CM faxed required information to [facility] phone #[phone], Fx #[phone]. CM will notify [employer] sales representative supervisor when patient when DC date is known. DCP- Discharge Planning Updated by [email or web address]: Nicole Cohen on 02/22/20 7:[address] CM met with patient to discuss initial discharge planning. Patient is in agreement to proceed with the assessment. Patient reports that she lives at home independently alone. Patient is alert/oriented, able to answer all questions. Stairs/steps: Ramp. PCP: Dr. Lara. Pharmacy: [facility]. Patient states she has been able to obtain all of her prescribed medications. HHS: None. DME: O2, Bi-Pap, walker, cane, shower chair, hand held shower.Patient gives permission to speak with family members/care givers. Emergency contact: Mino Metz (son) [phone]. 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 CM discussed the availability of HH, Rehab, SNF, OP Therapy, DME services. Patient is in agreement to 7-10 days of rehab, or HHS. Refuses a SNF bed for rehab. Patient denies hospitalization within the past 30 days. 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 Transportation at time of discharge: unknown. CM will assist with further dc needs. DCPIA - Discharge Planning Initial Assessment Updated by [email or web address]: Nicole Cohen on 02/22/20 8:46 am * Is the patient Alert and Oriented? Yes * How many steps to enter\exit or inside your home? Ramp * PCP Dr. Lara * Pharmacy [facility] * Preadmission Environment Home Alone * ADLs Partial Dependent * Equipment Cane CPAP Oxygen Rolling Walker Shower Chair * List name and contact numbers for known caregivers / representatives who currently or will assist patient after discharge: Mino Metz (son) [phone] * Verbal permission to speak to the caregivers and representatives has been obtained from the patient. Yes * Community resources currently utilized None * Additional services required to return to the preadmission environment? Yes * Can the patient safely return to the preadmission environment? No * Has this patient been hospitalized within the prior 30 days at any hospital? No External Providers External Provider: OTHER-OTHER Next Contact Date: Service Request Date: Service Type: Resolution: Reviewer: Comments: Coverage Notice Reviewer: [id number] Qian Cohen Notice Issued Date-Time: 02/21/2020 16:31 Notice Type: IM Discharge Notice Notice Delivered To: Patient Relationship to Patient: Self Oracle Database Architect Name: Val Crum Delivery Method: HAND - Hand Delivered Precious Days: Prior Verbal Notification: Recipient Understood Notice: Yes Recipient Signature: Yes Med Rec Note Co-signed by Attending: Coverage Notice Comment: DC IMM signed/to chart. Reviewer: [email or web address] Qian Cohen Notice Issued Date-Time: 02/21/2020 16:31 Notice Type: Patient Choice Letter Notice Delivered To: Patient Relationship to Patient: Self Oracle Database Architect Name: Saba Crum Delivery Method: HAND - Hand Delivered Precious Days: Prior Verbal Notification: Recipient Understood Notice: Yes Recipient Signature: Yes Med Rec Note Co-signed by Attending: Coverage Notice Comment: Patient choice HHS, no preference. Last DP export: 02/27/20 2:14 p Patient Name: ROXANA CRUMKIE Page 68821 at 1548 All edits/amendments must be made on the electronic document DICTATION DATE: 02/27/201546 REPRESENTATIVE PERSONAL SERVICE: MARYAN 02/27/201546 RPT#: [id number] DC DATE: STATUS: ADM IN [facility] [address] [place] [address] END OF REPORT
--- NOTE | 2020-02-27 16:15 | MORECARE ---
CASE MANAGEMENT DISCHARGE SUMMARY PATIENT: VAL CRUM UNIT: [id number] ADM DATE: 02/09/20 AGE: 59 : 58 SEX: F ROOM/BED: D.3037 AUTHOR: LUCIUS,DOC PHYSICIAN: REFERRING PHYSICIAN: JORGE NEGRETE MD DATE OF SERVICE: 02/27/20 Discharge Plan Patient Name: VAL CRUM Facility: [facility]:[place] : 1960 Planned Disposition: Home Health Service Anticipated Discharge Date: 02/27/20 Discharge Date: Expected LOS: 18 Initial Reviewer: [id number] Initial Review Date: 02/09/2020 Generated: 02/27/20 5:15 pm Comments DCP- Discharge Planning Updated by [email or web address]: Nicole Cohen on 02/27/20 3:[address] CM contacted Dr. Saxena regarding the order for the Trilogy, to be completed. He will over to the Med2 floor shortly. 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 provided Mino Metz's number for [employer]. CM received an order to DC home today. Contacted the patient's son, Mino Metz ([phone]) regarding today's DC order. CM explained the plan for TAVR, in [place], at a later date and the need for HHS. Mino is in agreement for his mother to return home with [facility] and has no preference of company used ([employer] contacted, [employer]). Son will pick the patient up tomorrow, after the Trilogy is approved/delivered from [facility] ([phone]) and go over the Dc paperwork with appointments scheduled. CM faxed the required paperwork to [facility]. DCP- Discharge Planning Updated by [id number]: Nicole Cohen on 02/25/20 2:[address] CM faxed additional information to Mirella, with [facility], regarding documentation for Trilogy. DCP- Discharge Planning Updated by [email or web address]: Nicole Cohen on 02/22/20 3:[address] Crystal with [facility], notified of need for Trilogy, upon DC. CM faxed required information to [facility] phone #[phone], Fx #[phone]. CM will notify [employer] medical office representative when patient when DC date is known. DCP- Discharge Planning Updated by [email or web address]: Nicole Vicki on 02/22/20 7:[address] CM met with patient to discuss initial discharge planning. Patient is in agreement to proceed with the assessment. Patient reports that she lives at home independently alone. Patient is alert/oriented, able to answer all questions. Stairs/steps: Ramp. PCP: Dr. Lara. Pharmacy: [facility]. Patient states she has been able to obtain all of her prescribed medications. HHS: None. DME: O2, Bi-Pap, walker, cane, shower chair, hand held shower.Patient gives permission to speak with family members/care givers. Emergency contact: Mino Metz (son) [phone]. 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 CM discussed the availability of HH, Rehab, SNF, OP Therapy, DME services. Patient is in agreement to 7-10 days of rehab, or HHS. Refuses a SNF bed for rehab. Patient denies hospitalization within the past 30 days. 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 Transportation at time of discharge: unknown. CM will assist with further dc needs. DCPIA - Discharge Planning Initial Assessment Updated by [email or web address]: Nicole Bernallroy on 02/22/20 8:46 am * Is the patient Alert and Oriented? Yes * How many steps to enter\exit or inside your home? Ramp * PCP Dr. Lara * Pharmacy [facility] * Preadmission Environment Home Alone * ADLs Partial Dependent * Equipment Cane CPAP Oxygen Rolling Walker Shower Chair * List name and contact numbers for known caregivers / representatives who currently or will assist patient after discharge: Mino Metz (son) [phone] * Verbal permission to speak to the caregivers and representatives has been obtained from the patient. Yes * Community resources currently utilized None * Additional services required to return to the preadmission environment? Yes * Can the patient safely return to the preadmission environment? No * Has this patient been hospitalized within the prior 30 days at any hospital? No Coverage Notice Reviewer: [id number] Qian Cohen Notice Issued Date-Time: 02/21/2020 16:31 Notice Type: IM Discharge Notice Notice Delivered To: Patient Relationship to Patient: Self Staff Home Therapy Rn Name: Val Crum Delivery Method: HAND - Hand Delivered Precious Days: Prior Verbal Notification: Recipient Understood Notice: Yes Recipient Signature: Yes Med Rec Note Co-signed by Attending: Coverage Notice Comment: DC IMM signed/to chart. Reviewer: [id number] Qian Cohen Notice Issued Date-Time: 02/21/2020 16:31 Notice Type: Patient Choice Letter Notice Delivered To: Patient Relationship to Patient: Self Staff Home Therapy Rn Name: Saba Crum Delivery Method: HAND - Hand Delivered Precious Days: Prior Verbal Notification: Recipient Understood Notice: Yes Recipient Signature: Yes Med Rec Note Co-signed by Attending: Coverage Notice Comment: Patient choice HHS, no preference. Last DP export: 02/27/20 2:48 p Patient Name: VAL CRUM Page [id number] at 1615 All edits/amendments must be made on the electronic document DICTATION DATE: 02/27/20 1615 PELLETIZER TENDER: MARYAN 02/27/20 1615 RPT#: [id number] DC DATE: STATUS: ADM IN [facility] [address] [place] [address] END OF REPORT
[2020-02-27 20:00] VITALS: BP 100/52
[2020-02-28] VITALS: BP 97/57
--- NOTE | 2020-02-28 02:03 | NUR ---
NOTIFIED SHEN BROWN APN. PATIENT HAS A DISCHARGE ORDER FOR TOMORROW MORNING. PATIENT HAS BEEN FREE OF CHEST PAIN GRETER THAN 24 HOURS. 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
[2020-02-28 04:00] VITALS: BP 105/65
[2020-02-28 06:49] LABS: BASOPHILS 0 % (0-2); EOSINOPHILS 3.5 % (0-7); HEMATOCRIT 34.1 % (36.0-48.0); HEMOGLOBIN 10.3 g/dL (12-16); IMMATURE GRANULOCYTES 0.3 % (0-5); LYMPHOCYTES 28.7 % (15-50); MCH 29.9 pg (26.0-34.0); MCHC 30.2 g/dL (31.0-37.0); MCV 99.1 fL (80.0-100.0); MEAN PLATELET VOLUME 10.1 fL (7.4-10.4); MONOCYTES 8.6 % (2-11); NEUTROPHILS 58.9 % (40-80); PLATELET COUNT 227 10x3/uL (130-400); RBC 3.44 10x6/uL (4.00-5.40); RDW 16.7 % (11.5-14.5); WBC 7.8 10x3/uL (4.8-10.8)
[2020-02-28 07:05] LABS: ANION GAP 5.4 mmol/L (8-16); CALCIUM 8.8 mg/dL (8.5-10.1); CARBON DIOXIDE 36.5 mmol/L (21.0-32.0); CREATININE - SERUM 1.1 mg/dL (0.6-1.3); POTASSIUM - SERUM 3.9 mmol/L (3.5-5.1)
[2020-02-28 08:00] VITALS: BP 110/58
--- NOTE | 2020-02-28 09:29 | MORECARE ---
CASE MANAGEMENT DISCHARGE SUMMARY PATIENT: VAL CRUM UNIT: [id number] ADM DATE: 02/09/20 AGE: 59 : 58 SEX: F ROOM/BED: D.6767 AUTHOR: LUCIUS,DOC PHYSICIAN: REFERRING PHYSICIAN: JORGE NEGRETE MD DATE OF SERVICE: 02/28/20 Discharge Plan Patient Name: VAL CRUM Facility: [facility]:[place] : 1960 Planned Disposition: Home Health Service Anticipated Discharge Date: 02/27/20 Discharge Date: Expected LOS: 18 Initial Reviewer: [email or web address] Initial Review Date: 02/09/2020 Generated: 02/28/20 10:28 am Comments DCP- Discharge Planning Updated by [id number]: Nicole Cohen on 02/28/20 8:[address] CM faxed ABG's and signed order to [facility]. DCP- Discharge Planning Updated by [id number]: Nicole Cohen on 02/27/20 3:[address]SA contacted Dr. Saxena regarding the order for the Trilogy, to be completed. He will over to the Med2 floor shortly. 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 CM provided Mino Metz's number for cotact. CM received an order to DC home today. Contacted the patient's son, Mino Metz ([phone]) regarding today's DC order. CM explained the plan for TAVR, in LR, at a later date and the need for [facility]. Mino is in agreement for his mother to return home with [facility] and has no preference of company used ([facility] contacted, [employer]). Son will pick the patient up tomorrow, after the Trilogy is approved/delivered from [facility] ([phone]) and go over the Dc paperwork with appointments scheduled. CM faxed the required paperwork to [facility]. DCP- Discharge Planning Updated by [id number]: Nicole Cohen on 02/25/20 2:[address] CM faxed additional information to Mirella, with [facility], regarding documentation for Trilogy. DCP- Discharge Planning Updated by [id number]: Nicole Bernallroy on 02/22/20 3:[address] Crystal with [facility], notified of need for Trilogy, upon DC. CM faxed required information to [facility] phone #[phone], Fx #[phone]. CM will notify [facility] dental detail representative when patient when DC date is known. DCP- Discharge Planning Updated by [email or web address]: Nicole Bernallroy on 02/22/20 7:[address] CM met with patient to discuss initial discharge planning. Patient is in agreement to proceed with the assessment. Patient reports that she lives at home independently alone. Patient is alert/oriented, able to answer all questions. Stairs/steps: Ramp. PCP: Dr. Lara. Pharmacy: [facility]. Patient states she has been able to obtain all of her prescribed medications. HHS: None. DME: O2, Bi-Pap, walker, cane, shower chair, hand held shower.Patient gives permission to speak with family members/care givers. Emergency contact: Mino Metz (son) [phone]. 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 CM discussed the availability of HH, Rehab, SNF, OP Therapy, DME services. Patient is in agreement to 7-10 days of rehab, or HHS. Refuses a SNF bed for rehab. Patient denies hospitalization within the past 30 days. Patient denies the use of community resources DAIRY SCIENTIST. Transportation at time of discharge: unknown. CM will assist with further dc needs. DCPIA - Discharge Planning Initial Assessment Updated by [email or web address]: Nicole Bernallroy on 02/22/20 8:46 am * Is the patient Alert and Oriented? Yes * How many steps to enter\exit or inside your home? Ramp * PCP Dr. Lara * Pharmacy [facility] * Preadmission Environment Home Alone * ADLs Partial Dependent * Equipment Cane CPAP Oxygen Rolling Walker Shower Chair * List name and contact numbers for known caregivers / representatives who currently or will assist patient after discharge: Mino Metz (son) [phone] * Verbal permission to speak to the caregivers and representatives has been obtained from the patient. Yes * Community resources currently utilized None * Additional services required to return to the preadmission environment? Yes * Can the patient safely return to the preadmission environment? No * Has this patient been hospitalized within the prior 30 days at any hospital? No Coverage Notice Reviewer: [id number] Qian Cohen Notice Issued Date-Time: 02/21/2020 16:31 Notice Type: IM Discharge Notice Notice Delivered To: Patient Relationship to Patient: Self Loom Fixer Helper Name: Val Crum Delivery Method: HAND - Hand Delivered Precious Days: Prior Verbal Notification: Recipient Understood Notice: Yes Recipient Signature: Yes Med Rec Note Co-signed by Attending: Coverage Notice Comment: DC IMM signed/to chart. Reviewer: [id number] Qian Cohen Notice Issued Date-Time: 02/21/2020 16:31 Notice Type: Patient Choice Letter Notice Delivered To: Patient Relationship to Patient: Self Loom Fixer Helper Name: Saba Crum Delivery Method: HAND - Hand Delivered Precious Days: Prior Verbal Notification: Recipient Understood Notice: Yes Recipient Signature: Yes Med Rec Note Co-signed by Attending: Coverage Notice Comment: Patient choice HHS, no preference. Last DP export: 02/27/20 3:15 p Patient Name: VAL CRUM Page 08408 at 0929 All edits/amendments must be made on the electronic document DICTATION DATE: 02/28/20927 SHAREPOINT ADMINISTRATOR: MARYAN 02/28/20927 RPT#: [id number] DC DATE: STATUS: ADM IN [facility] [address] [place] [address] END OF REPORT
--- NOTE | 2020-02-28 10:08 | MORECARE ---
CASE MANAGEMENT DISCHARGE SUMMARY PATIENT: VAL CRUM UNIT: [id number] ADM DATE: 02/09/20 AGE: 59 : 58 SEX: F ROOM/BED: D.5046 AUTHOR: LUCIUS,DOC PHYSICIAN: REFERRING PHYSICIAN: JORGE NEGRETE MD DATE OF SERVICE: 02/28/20 Discharge Plan Patient Name: VAL CRUM Facility: [facility]:[place] : 1960 Planned Disposition: Home Health Service Anticipated Discharge Date: 02/27/20 Discharge Date: Expected LOS: 18 Initial Reviewer: [email or web address] Initial Review Date: 02/09/2020 Generated: 02/28/20 11:07 am Comments DCP- Discharge Planning Updated by [email or web address]: Nicole Cohen on 02/28/20 9:[address] CM contacted Audelia with [facility] to verify receipt of information for Trilogy. Audelia vivas RA sat at rest. Notified nursing of same. CM faxed ABG's and signed order to [facility]. DCP- Discharge Planning Updated by [id number]: Nicole Cohen on 02/27/20 3:[address] CM contacted Dr. Saxena regarding the order for the Trilogy, to be completed. He will over to the Med2 floor shortly. 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 provided Mino Metz's number for cotact. CM received an order to DC home today. Contacted the patient's son, Mino Metz ([phone]) regarding today's DC order. CM explained the plan for TAVR, in LR, at a later date and the need for HHS. Mino is in agreement for his mother to return home with [facility] and has no preference of company used ([facility] contacted, [employer]). Son will pick the patient up tomorrow, after the Trilogy is approved/delivered from [facility] ([phone]) and go over the Dc paperwork with appointments scheduled. CM faxed the required paperwork to [facility]. DCP- Discharge Planning Updated by [id number]: Nicole Bernallroy on 02/25/20 2:[address] CM faxed additional information to Mirella, with [facility], regarding documentation for Trilogy. DCP- Discharge Planning Updated by [id number]: Nicole Bernallroy on 02/22/20 3:[address] Crystal with [facility], notified of need for Trilogy, upon DC. CM faxed required information to [facility] phone #[phone], Fx #[phone]. CM will notify [facility] associate financial representative when patient when DC date is known. DCP- Discharge Planning Updated by [id number]: Nicole Bernallroy on 02/22/20 7:[address] CM met with patient to discuss initial discharge planning. Patient is in agreement to proceed with the assessment. Patient reports that she lives at home independently alone. Patient is alert/oriented, able to answer all questions. Stairs/steps: Ramp. PCP: Dr. Lara. [facility] Patient states she has been able to obtain all of her prescribed medications. HHS: None. DME: O2, Bi-Pap, walker, cane, shower chair, hand held shower.Patient gives permission to speak with family members/care givers. Emergency contact: Mino Metz (son) [phone]. 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 CM discussed the availability of HH, Rehab, SNF, OP Therapy, DME services. Patient is in agreement to 7-10 days of rehab, or HHS. Refuses a SNF bed for rehab. Patient denies hospitalization within the past 30 days. Patient denies the use of community resources SUPERVISOR GRIPS. Transportation at time of discharge: unknown. CM will assist with further dc needs. DCPIA - Discharge Planning Initial Assessment Updated by [email or web address]: Nicole Bernallroy on 02/22/20 8:46 am * Is the patient Alert and Oriented? Yes * How many steps to enter\exit or inside your home? Ramp * PCP Dr. Lara * [facility] * Preadmission Environment Home Alone * ADLs Partial Dependent * Equipment Cane CPAP Oxygen Rolling Walker Shower Chair * List name and contact numbers for known caregivers / representatives who currently or will assist patient after discharge: Mino Metz (son) [phone] * Verbal permission to speak to the caregivers and representatives has been obtained from the patient. Yes * Community resources currently utilized None * Additional services required to return to the preadmission environment? Yes * Can the patient safely return to the preadmission environment? No * Has this patient been hospitalized within the prior 30 days at any hospital? No Coverage Notice Reviewer: [email or web address] Qian Cohen Notice Issued Date-Time: 02/21/2020 16:31 Notice Type: IM Discharge Notice Notice Delivered To: Patient Relationship to Patient: Self Home Help Aide Name: Val Crum Delivery Method: HAND - Hand Delivered Precious Days: Prior Verbal Notification: Recipient Understood Notice: Yes Recipient Signature: Yes Med Rec Note Co-signed by Attending: Coverage Notice Comment: DC IMM signed/to chart. Reviewer: [id number] Qian Cohen Notice Issued Date-Time: 02/21/2020 16:31 Notice Type: Patient Choice Letter Notice Delivered To: Patient Relationship to Patient: Self Home Help Aide Name: Saba Crum Delivery Method: HAND - Hand Delivered Precious Days: Prior Verbal Notification: Recipient Understood Notice: Yes Recipient Signature: Yes Med Rec Note Co-signed by Attending: Coverage Notice Comment: Patient choice HHS, no preference. Last DP export: 02/28/20 8:29 a Patient Name: VAL CRUM Page 35925 at 1008 All edits/amendments must be made on the electronic document DICTATION DATE: 02/28/20 1008 AIRPORT TOWER CONTROLLER: MARYAN 02/28/20 1008 RPT#: [id number] DC DATE: STATUS: ADM IN [facility] [address] [place] [address] END OF REPORT
--- NOTE | 2020-02-28 11:01 | MORECARE ---
CASE MANAGEMENT DISCHARGE SUMMARY PATIENT: VAL CRUM UNIT: [id number] ADM DATE: 02/09/20 AGE: 59 : 58 SEX: F ROOM/BED: D.3875 AUTHOR: LUCIUS,DOC PHYSICIAN: REFERRING PHYSICIAN: JORGE NEGRETE MD DATE OF SERVICE: 02/28/20 Discharge Plan Patient Name: VAL CRUM Facility: [facility]:[place] : 1960 Planned Disposition: Home Health Service Anticipated Discharge Date: 02/27/20 Discharge Date: Expected LOS: 18 Initial Reviewer: [email or web address] Initial Review Date: 02/09/2020 Generated: 02/28/20 12:00 pm Comments DCP- Discharge Planning Updated by [email or web address]: Nicole Cohen on 02/28/20 9:[address] Faxed RA sat 86% at rest, to Audelia, with [facility]. Await delivery of Trilogy. MALISSA contacted Audelia with [employer] to verify receipt of information for Trilogy. Audelia request RA sat at rest. Notified nursing of same. CM faxed ABG's and signed order to [employer]. DCP- Discharge Planning Updated by [id number]: Nicole Cohen on 02/27/20 3:[address] CM contacted Dr. Saxena regarding the order for the Trilogy, to be completed. He will over to the Med2 floor shortly. 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 MALISSA provided Mino Metz's number for cotact. CM received an order to DC home today. Contacted the patient's son, Mino Metz ([phone]) regarding today's DC order. CM explained the plan for TAVR, in LR, at a later date and the need for HHS. Mino is in agreement for his mother to return home with [facility] and has no preference of company used ([facility] contacted, [employer]). Son will pick the patient up tomorrow, after the Trilogy is approved/delivered from [employer] ([phone]) and go over the Dc paperwork with appointments scheduled. CM faxed the required paperwork to [facility]. DCP- Discharge Planning Updated by [id number]: Nicole Cohen on 02/25/20 2:[address] CM faxed additional information to Mirella, with [facility], regarding documentation for Trilogy. DCP- Discharge Planning Updated by [id number]: Nicole Cohen on 02/22/20 3:[address] Crystal with [facility], notified of need for Trilogy, upon DC. CM faxed required information to [facility] phone #[phone], Fx #[phone]. CM will notify [facility] outside sales account representative when patient when DC date is known. DCP- Discharge Planning Updated by [id number]: Nicole Cohen on 02/22/20 7:[address] CM met with patient to discuss initial discharge planning. Patient is in agreement to proceed with the assessment. Patient reports that she lives at home independently alone. Patient is alert/oriented, able to answer all questions. Stairs/steps: Ramp. PCP: Dr. Lara. Pharmacy: [facility]. Patient states she has been able to obtain all of her prescribed medications. HHS: None. DME: O2, Bi-Pap, walker, cane, shower chair, hand held shower.Patient gives permission to speak with family members/care givers. Emergency contact: Mino Metz (son) [phone]. 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 CM discussed the availability of HH, Rehab, SNF, OP Therapy, DME services. Patient is in agreement to 7-10 days of rehab, or HHS. Refuses a SNF bed for rehab. Patient denies hospitalization within the past 30 days. Patient denies the use of community resources PACKAGING INSPECTOR. Transportation at time of discharge: unknown. CM will assist with further dc needs. DCPIA - Discharge Planning Initial Assessment Updated by [id number]: Nicole Cohen on 02/22/20 8:46 am * Is the patient Alert and Oriented? Yes * How many steps to enter\exit or inside your home? Ramp * PCP Dr. Lara * Pharmacy [facility] * Preadmission Environment Home Alone * ADLs Partial Dependent * Equipment Cane CPAP Oxygen Rolling Walker Shower Chair * List name and contact numbers for known caregivers / representatives who currently or will assist patient after discharge: Mino Metz (son) [phone] * Verbal permission to speak to the caregivers and representatives has been obtained from the patient. Yes * Community resources currently utilized None * Additional services required to return to the preadmission environment? Yes * Can the patient safely return to the preadmission environment? No * Has this patient been hospitalized within the prior 30 days at any hospital? No Coverage Notice Reviewer: [id number] Cohen Notice Issued Date-Time: 02/21/2020 16:31 Notice Type: IM Discharge Notice Notice Delivered To: Patient Relationship to Patient: Self Category Manager Name: Val Crum Delivery Method: HAND - Hand Delivered Precious Days: Prior Verbal Notification: Recipient Understood Notice: Yes Recipient Signature: Yes Med Rec Note Co-signed by Attending: Coverage Notice Comment: DC IMM signed/to chart. Reviewer: [email or web address] Qian Cohen Notice Issued Date-Time: 02/21/2020 16:31 Notice Type: Patient Choice Letter Notice Delivered To: Patient Relationship to Patient: Self Category Manager Name: Saba Crum Delivery Method: HAND - Hand Delivered Precious Days: Prior Verbal Notification: Recipient Understood Notice: Yes Recipient Signature: Yes Med Rec Note Co-signed by Attending: Coverage Notice Comment: Patient choice HHS, no preference. Last DP export: 02/28/20 9:08 a Patient Name: VAL CRUM Page 24790 at 1101 All edits/amendments must be made on the electronic document DICTATION DATE: 02/28/20 1100 MANUFACTURING DEVELOPMENT ENGINEER: MARYAN 02/28/20 1100 RPT#: [id number] DC DATE: STATUS: ADM IN [facility] [address] [place] [address] END OF REPORT
--- NOTE | 2020-02-28 11:44 | MORECARE ---
CASE MANAGEMENT DISCHARGE SUMMARY PATIENT: VAL CRUM UNIT: [id number] ADM DATE: 02/09/20 AGE: 59 : 58 SEX: F ROOM/BED: D.0893 AUTHOR: LUCIUS,DOC PHYSICIAN: REFERRING PHYSICIAN: JORGE NEGRETE MD DATE OF SERVICE: 02/28/20 Discharge Plan Patient Name: VAL CRUM Facility: [facility]:[place] : 1960 Planned Disposition: Home Health Service Anticipated Discharge Date: 02/27/20 Discharge Date: Expected LOS: 18 Initial Reviewer: [email or web address] Initial Review Date: 02/09/2020 Generated: 02/28/20 12:43 pm Comments DCP- Discharge Planning Updated by [id number]: Nicole Cohen on 02/28/20 10:[address] cM met with patient and son, Mino Metz, at bedside, explained that the cardiac surgery will be arranged by the Cardio Thoracic surgeon either at [facility] or [facility]. Patient is very upset/loud that the surgery is not going to be done here at [facility]. CM explained to patient and son that this facility does not do this type of cardiac surgery. Patient's son voices understanding. Patient states" I'm just a piece of garbage, I'M going home to ". Son voices no other needs. Faxed RA sat 86% at rest, to Audelia, with [facility]. Await delivery of Trilogy and portable O2.. CM contacted Audelia with [facility] to verify receipt of information for Trilogy. Audelia request RA sat at rest. Notified nursing of same. CM faxed ABG's and signed order to [employer]. DCP- Discharge Planning Updated by [id number]: Nicole Cohen on 02/27/20 3:[address] CM contacted Dr. Saxena regarding the order for the Trilogy, to be completed. He will over to the Med2 floor shortly. 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 CM provided Mino Metz's number for cotact. CM received an order to DC home today. Contacted the patient's son, Mino Metz ([phone]) regarding today's DC order. CM explained the plan for TAVR, in LR, at a later date and the need for HHS. Mino is in agreement for his mother to return home with [facility] and has no preference of company used ([facility] contacted, [employer]). Son will pick the patient up tomorrow, after the Trilogy is approved/delivered from [employer] ([phone]) and go over the Dc paperwork with appointments scheduled. CM faxed the required paperwork to [facility]. DCP- Discharge Planning Updated by [id number]: Nicole Cohen on 02/25/20 2:[address] CM faxed additional information to Mirella, with [employer], regarding documentation for Trilogy. DCP- Discharge Planning Updated by [id number]: Nicole Cohen on 02/22/20 3:[address] Crystal with [facility], notified of need for Trilogy, upon DC. CM faxed required information to [employer] phone #[phone], Fx #[phone]. CM will notify [employer] pharmacy services representative when patient when DC date is known. DCP- Discharge Planning Updated by [email or web address]: Nicole Cohen on 02/22/20 7:[address] CM met with patient to discuss initial discharge planning. Patient is in agreement to proceed with the assessment. Patient reports that she lives at home independently alone. Patient is alert/oriented, able to answer all questions. Stairs/steps: Ramp. PCP: Dr. Lara. Pharmacy: [facility]. Patient states she has been able to obtain all of her prescribed medications. HHS: None. DME: O2, Bi-Pap, walker, cane, shower chair, hand held shower.Patient gives permission to speak with family members/care givers. Emergency contact: Mino Metz (son) [phone]. 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 CM discussed the availability of HH, Rehab, SNF, OP Therapy, DME services. Patient is in agreement to 7-10 days of rehab, or HHS. Refuses a SNF bed for rehab. Patient denies hospitalization within the past 30 days. Patient denies the use of community resources JIG AND FIXTURE REPAIRER. Transportation at time of discharge: unknown. CM will assist with further dc needs. DCPIA - Discharge Planning Initial Assessment Updated by [email or web address]: Nicole Cohen on 02/22/20 8:46 am * Is the patient Alert and Oriented? Yes * How many steps to enter\\exit or inside your home? Ramp * PCP Dr. Lara * Pharmacy [facility] * Preadmission Environment Home Alone * ADLs Partial Dependent * Equipment Cane CPAP Oxygen Rolling Walker Shower Chair * List name and contact numbers for known caregivers / representatives who currently or will assist patient after discharge: Mino Metz (son) [phone] * Verbal permission to speak to the caregivers and representatives has been obtained from the patient. Yes * Community resources currently utilized None * Additional services required to return to the preadmission environment? Yes * Can the patient safely return to the preadmission environment? No * Has this patient been hospitalized within the prior 30 days at any hospital? No Coverage Notice Reviewer: [id number] Cohen Notice Issued Date-Time: 02/21/2020 16:31 Notice Type: IM Discharge Notice Notice Delivered To: Patient Relationship to Patient: Self Accounts Payable Bookkeeper Name: Val Crum Delivery Method: HAND - Hand Delivered Precious Days: Prior Verbal Notification: Recipient Understood Notice: Yes Recipient Signature: Yes Med Rec Note Co-signed by Attending: Coverage Notice Comment: DC IMM signed/to chart. Reviewer: [id number] Cohen Notice Issued Date-Time: 02/21/2020 16:31 Notice Type: Patient Choice Letter Notice Delivered To: Patient Relationship to Patient: Self Accounts Payable Bookkeeper Name: Saba Crum Delivery Method: HAND - Hand Delivered Precious Days: Prior Verbal Notification: Recipient Understood Notice: Yes Recipient Signature: Yes Med Rec Note Co-signed by Attending: Coverage Notice Comment: Patient choice HHS, no preference. Reviewer: [email or web address] Qian Cohen Notice Issued Date-Time: 02/28/2020 11:30 Notice Type: IM Discharge Notice Notice Delivered To: Patient Relationship to Patient: Son Accounts Payable Bookkeeper Name: Mino Metz Delivery Method: HAND - Hand Delivered Percious Days: Prior Verbal Notification: Recipient Understood Notice: Yes Recipient Signature: Yes Med Rec Note Co-signed by Attending: Coverage Notice Comment: DC IMM signed/delivered to patient's son. Original to chart. Last DP export: 02/28/20 10:01 a Patient Name: VAL CRUM Page 46905 at 1144 All edits/amendments must be made on the electronic document DICTATION DATE: 02/28/20 1143 STOVE FITTER: MARYAN 02/28/20 1143 RPT#: [id number] DC DATE: STATUS: ADM IN [facility] [address] [place] [address] END OF REPORT
--- NOTE | 2020-02-28 12:58 | NUR ---
Nutrition Follow-up: Eating well. Noted plans to d/c pending and Trilogy set up. Diet: Cardiac PO intake: 100% yesterday Wt: 292# (02/27); 297.6# (02/25); 293.2# (02/15) Labs reviewed Meds noted: Lasix, Prednisone, Humulin, Protonix, electrolyte protocol -Monitor wt; noted daily wts ordered. -RD following.
--- NOTE | 2020-02-28 13:15 | MORECARE ---
CASE MANAGEMENT DISCHARGE SUMMARY PATIENT: VAL CRUM UNIT: [id number] ADM DATE: 02/09/20 AGE: 59 : 58 SEX: F ROOM/BED: D.6374 AUTHOR: LUCIUS,DOC PHYSICIAN: REFERRING PHYSICIAN: JORGE NEGRETE MD DATE OF SERVICE: 02/28/20 Discharge Plan Patient Name: VAL CRUM Facility: [facility]:[place] : 1960 Planned Disposition: Home Health Service Anticipated Discharge Date: 02/27/20 Discharge Date: Expected LOS: 18 Initial Reviewer: [email or web address] Initial Review Date: 02/09/2020 Generated: 02/28/20 2:15 pm Comments DCP- Discharge Planning Updated by [email or web address]: Nicole Cohen on 02/28/20 12:[address] DC Plan: Care IV HHS, SOC Wednesday 02/28 or Thursday 03/01. Trilogy and Portable O2 has been delivered. CM met with patient and son, Mino Metz, at bedside, explained that the cardiac surgery will be arranged by the Cardio Thoracic surgeon either at [facility] or [facility]. Patient is very upset/loud that the surgery is not going to be done here at [facility]. MALISSA explained to patient and son that this facility does not do this type of cardiac surgery. Patient's son voices understanding. Patient states" I'm just a piece of garbage, I'M going home to ". Son voices no other needs. Faxed RA sat 86% at rest, to Audelia, with [employer]. Await delivery of Trilogy and portable O2.. CM contacted Audelia with [employer] to verify receipt of information for Trilogy. Audelia request RA sat at rest. Notified nursing of same. CM faxed ABG's and signed order to [facility]. DCP- Discharge Planning Updated by [id number]: Nicole Cohen on 02/27/20 3:[address] CM contacted Dr. Saxena regarding the order for the Trilogy, to be completed. He will over to the Med2 floor shortly. 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 CM provided Mino Metz's number for cotact. CM received an order to DC home today. Contacted the patient's son, Mino Metz ([phone]) regarding today's DC order. CM explained the plan for TAVR, in LR, at a later date and the need for HHS. Mino is in agreement for his mother to return home with [facility] and has no preference of company used (Care IV contacted, [employer]). Son will pick the patient up tomorrow, after the Trilogy is approved/delivered from [employer] ([phone]) and go over the Dc paperwork with appointments scheduled. CM faxed the required paperwork to [facility]. DCP- Discharge Planning Updated by [id number]: Nicole Cohen on 02/25/20 2:[address] CM faxed additional information to Mirella, with [employer], regarding documentation for Trilogy. DCP- Discharge Planning Updated by [id number]: Nicole Cohen on 02/22/20 3:[address] Crystal with [employer], notified of need for Trilogy, upon DC. CM faxed required information to [employer] phone #[phone], Fx #[phone]. CM will notify [employer] safety representative when patient when DC date is known. DCP- Discharge Planning Updated by [id number]: Nicole Cohen on 02/22/20 7:[address] CM met with patient to discuss initial discharge planning. Patient is in agreement to proceed with the assessment. Patient reports that she lives at home independently alone. Patient is alert/oriented, able to answer all questions. Stairs/steps: Ramp. PCP: Dr. Lara. Pharmacy: [facility]. Patient states she has been able to obtain all of her prescribed medications. HHS: None. DME: O2, Bi-Pap, walker, cane, shower chair, hand held shower.Patient gives permission to speak with family members/care givers. Emergency contact: Mino Metz (son) [phone]. Patient is partially independent with ADL's, medication management PAYROLL BENEFITS ADMINISTRATOR. CM discussed the availability of HH, Rehab, SNF, OP Therapy, DME services. Patient is in agreement to 7-10 days of rehab, or HHS. Refuses a SNF bed for rehab. Patient denies hospitalization within the past 30 days. Patient denies the use of community resources PAYROLL BENEFITS ADMINISTRATOR. Transportation at time of discharge: unknown. CM will assist with further dc needs. DCPIA - Discharge Planning Initial Assessment Updated by [id number]: Nicole Cohen on 02/22/20 8:46 am * Is the patient Alert and Oriented? Yes * How many steps to enter\\exit or inside your home? Ramp * PCP Dr. Lara * Pharmacy [facility] * Preadmission Environment Home Alone * ADLs Partial Dependent * Equipment Cane CPAP Oxygen Rolling Walker Shower Chair * List name and contact numbers for known caregivers / representatives who currently or will assist patient after discharge: Mino Metz (son) [phone] * Verbal permission to speak to the caregivers and representatives has been obtained from the patient. Yes * Community resources currently utilized None * Additional services required to return to the preadmission environment? Yes * Can the patient safely return to the preadmission environment? No * Has this patient been hospitalized within the prior 30 days at any hospital? No Coverage Notice Reviewer: [email or web address] Qian Cohen Notice Issued Date-Time: 02/21/2020 16:31 Notice Type: IM Discharge Notice Notice Delivered To: Patient Relationship to Patient: Self Shoe Repairer Helper Name: Val Crum Delivery Method: HAND - Hand Delivered Precious Days: Prior Verbal Notification: Recipient Understood Notice: Yes Recipient Signature: Yes Med Rec Note Co-signed by Attending: Coverage Notice Comment: DC IMM signed/to chart. Reviewer: [id number] Qian Cohen Notice Issued Date-Time: 02/21/2020 16:31 Notice Type: Patient Choice Letter Notice Delivered To: Patient Relationship to Patient: Self Shoe Repairer Helper Name: Saba Crum Delivery Method: HAND - Hand Delivered Precious Days: Prior Verbal Notification: Recipient Understood Notice: Yes Recipient Signature: Yes Med Rec Note Co-signed by Attending: Coverage Notice Comment: Patient choice HHS, no preference. Reviewer: [email or web address] Qian Cohen Notice Issued Date-Time: 02/28/2020 11:30 Notice Type: IM Discharge Notice Notice Delivered To: Patient Relationship to Patient: Son Shoe Repairer Helper Name: Mino Nikkijessica Delivery Method: HAND - Hand Delivered Precious Days: Prior Verbal Notification: Recipient Understood Notice: Yes Recipient Signature: Yes Med Rec Note Co-signed by Attending: Coverage Notice Comment: DC IMM signed/delivered to patient's son. Original to chart. Last DP export: 02/28/20 10:44 a Patient Name: VAL CRUM Page [id number] at 1315 All edits/amendments must be made on the electronic document DICTATION DATE: 02/28/20 1315 CALENDAR CONTROL CLERK BLOOD BANK: MARYAN 02/28/20 1315 RPT#: [id number] DC DATE: STATUS: ADM IN [facility] [address] [place] [address] END OF REPORT
--- NOTE | 2020-02-28 13:20 | NUR ---
IV AND TELEMETRY DCD. DC PLANS GIVEN. UNDERSTANDING VOICED. ESCORTED TO CAR BY W/C.
--- NOTE | 2020-02-28 14:21 | MORECARE ---
CASE MANAGEMENT DISCHARGE SUMMARY PATIENT: VAL CRUM UNIT: [id number] ADM DATE: 02/09/20 AGE: 59 : 58 SEX: F ROOM/BED: D.7183 AUTHOR: LUCIUS,DOC PHYSICIAN: REFERRING PHYSICIAN: JORGE NEGRETE MD DATE OF SERVICE: 02/28/20 Discharge Plan Patient Name: VAL CRUM Facility: [facility]:[place] : 1960 Planned Disposition: Home Health Service Anticipated Discharge Date: 02/27/20 Discharge Date: 02/28/2020 Expected LOS: 18 Initial Reviewer: [email or web address] Initial Review Date: 02/09/2020 Generated: 02/28/20 3:20 pm Comments DCP- Discharge Planning Updated by [email or web address]: Nicole Cohen on 02/28/20 12:[address] DC Plan: Care IV HHS, SOC Wednesday 02/28 or Thursday 03/01. Trilogy and Portable O2 has been delivered. CM met with patient and son, Mino Metz, at bedside, explained that the cardiac surgery will be arranged by the Cardio Thoracic surgeon either at [facility] or [facility]. Patient is very upset/loud that the surgery is not going to be done here at [facility]. CM explained to patient and son that this facility does not do this type of cardiac surgery. Patient's son voices understanding. Patient states" I'm just a piece of garbage, I'M going home to ". Son voices no other needs. Faxed RA sat 86% at rest, to Audelia, with [employer]. Await delivery of Trilogy and portable O2.. CM contacted Audelia with [employer] to verify receipt of information for Trilogy. Audelia request RA sat at rest. Notified nursing of same. CM faxed ABG's and signed order to [facility]. DCP- Discharge Planning Updated by [id number]: Nicole Cohen on 02/27/20 3:[address] CM contacted Dr. Saxena regarding the order for the Trilogy, to be completed. He will over to the Med2 floor shortly. 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 CM provided Mino Metz's number for cotact. CM received an order to DC home today. Contacted the patient's son, Mino Metz ([phone]) regarding today's DC order. CM explained the plan for TAVR, in LR, at a later date and the need for HHS. Mino is in agreement for his mother to return home with [facility] and has no preference of company used (Care [employer] contacted, [employer]). Son will pick the patient up tomorrow, after the Trilogy is approved/delivered from [email or web address] ([phone]) and go over the Dc paperwork with appointments scheduled. CM faxed the required paperwork to [facility]. DCP- Discharge Planning Updated by [id number]: Nicole Cohen on 02/25/20 2:[address] CM faxed additional information to Mirella, with [employer], regarding documentation for Trilogy. DCP- Discharge Planning Updated by [id number]: Nicole Cohen on 02/22/20 3:[address] Crystal with [employer], notified of need for Trilogy, upon DC. CM faxed required information to [email or web address] phone #[phone], Fx #[phone]. CM will notify [employer] manufacturer representative when patient when DC date is known. DCP- Discharge Planning Updated by [id number]: Nicole Cohen on 02/22/20 7:[address] CM met with patient to discuss initial discharge planning. Patient is in agreement to proceed with the assessment. Patient reports that she lives at home independently alone. Patient is alert/oriented, able to answer all questions. Stairs/steps: Ramp. PCP: Dr. Lara. Pharmacy: [facility]. Patient states she has been able to obtain all of her prescribed medications. HHS: None. DME: O2, Bi-Pap, walker, cane, shower chair, hand held shower.Patient gives permission to speak with family members/care givers. Emergency contact: Mino Metz (son) [phone]. Patient is partially independent with ADL's, medication management RACK WORKER. CM discussed the availability of HH, Rehab, SNF, OP Therapy, DME services. Patient is in agreement to 7-10 days of rehab, or HHS. Refuses a SNF bed for rehab. Patient denies hospitalization within the past 30 days. Patient denies the use of community resources RACK WORKER. Transportation at time of discharge: unknown. CM will assist with further dc needs. DCPIA - Discharge Planning Initial Assessment Updated by [id number]: Nicole Cohen on 02/22/20 8:46 am * Is the patient Alert and Oriented? Yes * How many steps to enter\\exit or inside your home? Ramp * PCP Dr. Lara * Pharmacy [facility] * Preadmission Environment Home Alone * ADLs Partial Dependent * Equipment Cane CPAP Oxygen Rolling Walker Shower Chair * List name and contact numbers for known caregivers / representatives who currently or will assist patient after discharge: Mino Metz (son) [phone] * Verbal permission to speak to the caregivers and representatives has been obtained from the patient. Yes * Community resources currently utilized None * Additional services required to return to the preadmission environment? Yes * Can the patient safely return to the preadmission environment? No * Has this patient been hospitalized within the prior 30 days at any hospital? No Coverage Notice Reviewer: [email or web address] Qian Cohen Notice Issued Date-Time: 02/21/2020 16:31 Notice Type: IM Discharge Notice Notice Delivered To: Patient Relationship to Patient: Self Rn Traveling Name: Val Crum Delivery Method: HAND - Hand Delivered Precious Days: Prior Verbal Notification: Recipient Understood Notice: Yes Recipient Signature: Yes Med Rec Note Co-signed by Attending: Coverage Notice Comment: DC IMM signed/to chart. Reviewer: [id number] Qian Cohen Notice Issued Date-Time: 02/21/2020 16:31 Notice Type: Patient Choice Letter Notice Delivered To: Patient Relationship to Patient: Self Rn Traveling Name: Saba Crum Delivery Method: HAND - Hand Delivered Precious Days: Prior Verbal Notification: Recipient Understood Notice: Yes Recipient Signature: Yes Med Rec Note Co-signed by Attending: Coverage Notice Comment: Patient choice HHS, no preference. Reviewer: [id number] Qian Cohen Notice Issued Date-Time: 02/28/2020 11:30 Notice Type: IM Discharge Notice Notice Delivered To: Patient Relationship to Patient: Son Rn Traveling Name: Mino Metz Delivery Method: HAND - Hand Delivered Precious Days: Prior Verbal Notification: Recipient Understood Notice: Yes Recipient Signature: Yes Med Rec Note Co-signed by Attending: Coverage Notice Comment: DC IMM signed/delivered to patient's son. Original to chart. Last DP export: 02/28/20 12:15 p Patient Name: VAL CRUM Page [id number] at 1421 All edits/amendments must be made on the electronic document DICTATION DATE: 02/28/201419 SUPERVISOR HARVESTING: MARYAN 02/28/20 142 RPT#: [id number] DC DATE:02/28/20 STATUS: DIS IN [facility] [address] [place] [address] END OF REPORT
--- NOTE | 2020-02-28 15:26 | TEE ---
PATIENT:CLARA CRUM MEDICAL RECORD: [id number] LOCATION:D.M2 D.211 AGE OF PATIENT: 59 ADMISSION DATE: 02/09/20 SEX: F REFERRING PHYSICIAN: INTERPRETING PHYSICIAN: JORGE BETANCOURT MD TRANSESOPHAGEAL ECHOCARDIOGRAM Date: 02/26/20 RAI CHARGE Y INDICATIONS: MR PREMEDICATIONS: PATIENT'S RESPONSE PROCEDURE DOPPLER MEASUREMENTS: LVIT LA PA 0 RA 0 LVOT 89 RVOT 70.0 Asc. Ao 104 AV Gradient Peak 17.7 AV Mean 12.0 AV Area 1.6 MV Gradient Peak 28.1 MV Mean 12.0 MV Area 1.9 INTERPRETATION: Doppler: 2-D: COLOR FLOW DOPPLER NORMAL SALINE STUDY: MISCELLANOUS: DIAGNOSIS: PLAN: Ring Maker:3 Dr. Delacruz Beater Room Supervisor: Juanita KAY COMMENTS: PACS DATE OF SERVICE: 02/26/2020 PROCEDURE: Transesophageal Note. DESCRIPTION OF PROCEDURE: After general sedation via TIVA via anesthesia, transesophageal Omniplane probe was placed into the esophagus and proximal stomach without difficulty. FINDINGS: As follows: LVH is present. LV internal dimensions appear normal TRANSESOPHAGEAL ECHOCARDIOGRAM REPORT [id number] CLARA CRUM with normal wall motion and normal EF at 55%. The aortic valve is tricuspid. There is obvious decreased valve excursion consistent with transthoracic gradient of 70 mmHg. Left atrium does appear dilated. Mitral valve shows mild thickening, but no prolapse. No evidence of ruptured chordae tendineae, probably moderate MR by color flow imaging. Right-sided chambers are grossly normal with mild TR. TRANSINT:[id number] Voice Confirmation ID: [id number] DOCUMENT ID: [id number] at 1526 CC: [id number] DICTATION DATE: 02/26/20 1413 ENVIRONMENTAL PROGRAMS MANAGER: 02/27/20 0502 DIS IN 02/28/20 [facility] [address] [place] [address]
--- NOTE | 2020-02-28 16:28 | MORECARE ---
CASE MANAGEMENT DISCHARGE SUMMARY PATIENT: VAL CRUM UNIT: [id number] ADM DATE: 02/09/20 AGE: 59 : 58 SEX: F ROOM/BED: D.5303 AUTHOR: LUCIUS,DOC PHYSICIAN: REFERRING PHYSICIAN: JORGE NEGRETE MD DATE OF SERVICE: 02/28/20 Discharge Plan Patient Name: VAL CRUM Facility: [facility]:[place] : 1960 Planned Disposition: Home Health Service Anticipated Discharge Date: 02/27/20 Discharge Date: 02/28/2020 Expected LOS: 18 Initial Reviewer: [email or web address] Initial Review Date: 02/09/2020 Generated: 02/28/20 5:28 pm Comments DCP- Discharge Planning Updated by [id number]: Nicole Cohen on 02/28/20 12:[address] DC Plan: Care IV HHS, SOC Wednesday 02/28 or Thursday 03/01. Trilogy and Portable O2 has been delivered. CM met with patient and son, Mino Metz, at bedside, explained that the cardiac surgery will be arranged by the Cardio Thoracic surgeon either at [facility] or [facility]. Patient is very upset/loud that the surgery is not going to be done here at [facility]. CM explained to patient and son that this facility does not do this type of cardiac surgery. Patient's son voices understanding. Patient states" I'm just a piece of garbage, I'M going home to ". Son voices no other needs. Faxed RA sat 86% at rest, to Audelia, with [employer]. Await delivery of Trilogy and portable O2.. CM contacted Audelia with [employer] to verify receipt of information for Trilogy. Audelia request RA sat at rest. Notified nursing of same. CM faxed ABG's and signed order to [facility]. DCP- Discharge Planning Updated by [id number]: Nicole Cohen on 02/27/20 3:[address] CM contacted Dr. Saxena regarding the order for the Trilogy, to be completed. He will over to the Med2 floor shortly. Contacted by Audelia, with [employer], stating the Trilogy is on hold at this time due to the patient having non-payment AUDITING CONTROL CLERK. CM provided Mino Metz's number for cotact. CM received an order to DC home today. Contacted the patient's son, Mino Metz ([phone]) regarding today's DC order. CM explained the plan for TAVR, in LR, at a later date and the need for HHS. Mino is in agreement for his mother to return home with [facility] and has no preference of company used (Care [employer] contacted, [employer]). Son will pick the patient up tomorrow, after the Trilogy is approved/delivered from [employer] ([phone]) and go over the Dc paperwork with appointments scheduled. CM faxed the required paperwork to [facility]. DCP- Discharge Planning Updated by [id number]: Nicole Cohen on 02/25/20 2:[address] CM faxed additional information to Mirella, with [employer], regarding documentation for Trilogy. DCP- Discharge Planning Updated by [id number]: Nicole Cohen on 02/22/20 3:[address] Crystal with [employer], notified of need for Trilogy, upon DC. CM faxed required information to [employer] phone #[phone], Fx #[phone]. CM will notify [employer] sales representative publications when patient when DC date is known. DCP- Discharge Planning Updated by [id number]: Nicole Cohen on 02/22/20 7:[address] CM met with patient to discuss initial discharge planning. Patient is in agreement to proceed with the assessment. Patient reports that she lives at home independently alone. Patient is alert/oriented, able to answer all questions. Stairs/steps: Ramp. PCP: Dr. Lara. Pharmacy: [facility]. Patient states she has been able to obtain all of her prescribed medications. HHS: None. DME: O2, Bi-Pap, walker, cane, shower chair, hand held shower.Patient gives permission to speak with family members/care givers. Emergency contact: Mino Metz (son) [phone]. Patient is partially independent with ADL's, medication management AUDITING CONTROL CLERK. CM discussed the availability of HH, Rehab, SNF, OP Therapy, DME services. Patient is in agreement to 7-10 days of rehab, or HHS. Refuses a SNF bed for rehab. Patient denies hospitalization within the past 30 days. Patient denies the use of community resources AUDITING CONTROL CLERK. Transportation at time of discharge: unknown. CM will assist with further dc needs. DCPIA - Discharge Planning Initial Assessment Updated by [id number]: Nicoel Cohen on 02/22/20 8:46 am * Is the patient Alert and Oriented? Yes * How many steps to enter\\exit or inside your home? Ramp * PCP Dr. Lara * Pharmacy [facility] * Preadmission Environment Home Alone * ADLs Partial Dependent * Equipment Cane CPAP Oxygen Rolling Walker Shower Chair * List name and contact numbers for known caregivers / representatives who currently or will assist patient after discharge: Mino Metz (son) [phone] * Verbal permission to speak to the caregivers and representatives has been obtained from the patient. Yes * Community resources currently utilized None * Additional services required to return to the preadmission environment? Yes * Can the patient safely return to the preadmission environment? No * Has this patient been hospitalized within the prior 30 days at any hospital? No Coverage Notice Reviewer: [email or web address] Qian Cohen Notice Issued Date-Time: 02/21/2020 16:31 Notice Type: IM Discharge Notice Notice Delivered To: Patient Relationship to Patient: Self Wire Stitcher Machine Name: Val Crum Delivery Method: HAND - Hand Delivered Precious Days: Prior Verbal Notification: Recipient Understood Notice: Yes Recipient Signature: Yes Med Rec Note Co-signed by Attending: Coverage Notice Comment: DC IMM signed/to chart. Reviewer: [id number] Qian Cohen Notice Issued Date-Time: 02/21/2020 16:31 Notice Type: Patient Choice Letter Notice Delivered To: Patient Relationship to Patient: Self Wire Stitcher Machine Name: Saba Crum Delivery Method: HAND - Hand Delivered Precious Days: Prior Verbal Notification: Recipient Understood Notice: Yes Recipient Signature: Yes Med Rec Note Co-signed by Attending: Coverage Notice Comment: Patient choice HHS, no preference. Reviewer: [email or web address] Qian Cohen Notice Issued Date-Time: 02/28/2020 11:30 Notice Type: IM Discharge Notice Notice Delivered To: Patient Relationship to Patient: Son Wire Stitcher Machine Name: Mino Metz Delivery Method: HAND - Hand Delivered Precious Days: Prior Verbal Notification: Recipient Understood Notice: Yes Recipient Signature: Yes Med Rec Note Co-signed by Attending: Coverage Notice Comment: DC IMM signed/delivered to patient's son. Original to chart. Last DP export: 02/28/20 1:21 p Patient Name: VAL CRUM Page [id number] at 1628 All edits/amendments must be made on the electronic document DICTATION DATE: 02/28/201627 BULK SYSTEM OPERATOR: MARYAN 02/28/20 1628 RPT#: [id number] DC DATE:02/28/20 STATUS: DIS IN [facility] [address] [place] [address] END OF REPORT
--- NOTE | 2020-02-29 13:21 | MORECARE ---
CASE MANAGEMENT DISCHARGE SUMMARY PATIENT: VAL CRUM UNIT: [id number] ADM DATE: 02/09/20 AGE: 59 : 58 SEX: F ROOM/BED: D.3989 AUTHOR: LUCIUS,DOC PHYSICIAN: REFERRING PHYSICIAN: JORGE NEGRETE MD DATE OF SERVICE: 02/29/20 Discharge Plan Patient Name: VAL CRUM Facility: [facility]:[place] : 1960 Planned Disposition: Home Health Service Anticipated Discharge Date: 02/27/20 Discharge Date: 02/28/2020 Expected LOS: 18 Initial Reviewer: [email or web address] Initial Review Date: 02/09/2020 Generated: 02/29/20 2:20 pm Comments DCP- Discharge Planning Updated by [email or web address]: Nicole Cohen on 02/29/20 12:[address] [facility] started the patient's care today and when the nurse checked the Trilogy, it was not plugged in. CM had explained to the patient, prior to DC, how important it is to wear the Trilogy, and patient and son voiced understanding. Jesus has also been notified by the Care IV nurse, for additional instruction. DCP- Discharge Planning Updated by [email or web address]: Nicole Cohen on 02/28/20 12:[address] DC Plan: Care [facility] HHS, SOC Wednesday 02/28 or Thursday 03/01. Trilogy and Portable O2 has been delivered. CM met with patient and son, Mino Metz, at bedside, explained that the cardiac surgery will be arranged by the Cardio Thoracic surgeon either at [facility] or [facility]. Patient is very upset/loud that the surgery is not going to be done here at [facility]. CM explained to patient and son that this facility does not do this type of cardiac surgery. Patient's son voices understanding. Patient states" I'm just a piece of garbage, I'M going home to ". Son voices no other needs. Faxed RA sat 86% at rest, to Audelia, with [employer]. Await delivery of Trilogy and portable O2.. CM contacted Audelia with [facility] to verify receipt of information for Trilogy. Audelia request RA sat at rest. Notified nursing of same. CM faxed ABG's and signed order to [employer]. DCP- Discharge Planning Updated by [email or web address]: Nicole Cohen on 02/27/20 3:[address] CM contacted Dr. Saxena regarding the order for the Trilogy, to be completed. He will over to the Med2 floor shortly. Contacted by Audelia, with [facility], stating the Trilogy is on hold at this time due to the patient having non-payment MEAT SCRUBBER. CM provided Mino Metz's number for cotact. CM received an order to DC home today. Contacted the patient's son, Mino Metz ([phone]) regarding today's DC order. CM explained the plan for TAVR, in [place], at a later date and the need for HHS. Mino is in agreement for his mother to return home with [facility] and has no preference of company used ([facility] contacted, Padilla Tony). Son will pick the patient up tomorrow, after the Trilogy is approved/delivered from [employer] ([phone]) and go over the Dc paperwork with appointments scheduled. CM faxed the required paperwork to [facility]. DCP- Discharge Planning Updated by [id number]: Nicole Cohen on 02/25/20 2:[address] CM faxed additional information to Mirella, with [facility], regarding documentation for Trilogy. DCP- Discharge Planning Updated by [id number]: Nicole Cohen on 02/22/20 3:[address] Crystal with [facility], notified of need for Trilogy, upon DC. CM faxed required information to [employer] phone #[phone], Fx #[phone]. CM will notify [employer] outside sales representative when patient when DC date is known. DCP- Discharge Planning Updated by [email or web address]: Nicole Cohen on 02/22/20 7:[address] CM met with patient to discuss initial discharge planning. Patient is in agreement to proceed with the assessment. Patient reports that she lives at home independently alone. Patient is alert/oriented, able to answer all questions. Stairs/steps: Ramp. PCP: Dr. Lara. Pharmacy: [facility]. Patient states she has been able to obtain all of her prescribed medications. HHS: None. DME: O2, Bi-Pap, walker, cane, shower chair, hand held shower.Patient gives permission to speak with family members/care givers. Emergency contact: Mino Metz (son) [phone]. Patient is partially independent with ADL's, medication management MEAT SCRUBBER. CM discussed the availability of HH, Rehab, SNF, OP Therapy, DME services. Patient is in agreement to 7-10 days of rehab, or HHS. Refuses a SNF bed for rehab. Patient denies hospitalization within the past 30 days. Patient denies the use of community resources MEAT SCRUBBER. Transportation at time of discharge: unknown. CM will assist with further dc needs. DCPIA - Discharge Planning Initial Assessment Updated by [email or web address]: Nicole Cohen on 02/22/20 8:46 am * Is the patient Alert and Oriented? Yes * How many steps to enter\\exit or inside your home? Ramp * PCP Dr. Lara * Pharmacy [facility] * Preadmission Environment Home Alone * ADLs Partial Dependent * Equipment Cane CPAP Oxygen Rolling Walker Shower Chair * List name and contact numbers for known caregivers / representatives who currently or will assist patient after discharge: Mino Metz (son) [phone] * Verbal permission to speak to the caregivers and representatives has been obtained from the patient. Yes * Community resources currently utilized None * Additional services required to return to the preadmission environment? Yes * Can the patient safely return to the preadmission environment? No * Has this patient been hospitalized within the prior 30 days at any hospital? No Coverage Notice Reviewer: [id number] Qian Cohen Notice Issued Date-Time: 02/21/2020 16:31 Notice Type: IM Discharge Notice Notice Delivered To: Patient Relationship to Patient: Self Supervisor Publications Name: Val Crum Delivery Method: HAND - Hand Delivered Precious Days: Prior Verbal Notification: Recipient Understood Notice: Yes Recipient Signature: Yes Med Rec Note Co-signed by Attending: Coverage Notice Comment: DC IMM signed/to chart. Reviewer: [email or web address] Qian Cohen Notice Issued Date-Time: 02/21/2020 16:31 Notice Type: Patient Choice Letter Notice Delivered To: Patient Relationship to Patient: Self Supervisor Publications Name: Saba Crum Delivery Method: HAND - Hand Delivered Precious Days: Prior Verbal Notification: Recipient Understood Notice: Yes Recipient Signature: Yes Med Rec Note Co-signed by Attending: Coverage Notice Comment: Patient choice HHS, no preference. Reviewer: [id number] Qian Cohen Notice Issued Date-Time: 02/28/2020 11:30 Notice Type: IM Discharge Notice Notice Delivered To: Patient Relationship to Patient: Son Supervisor Publications Name: Mino Metz Delivery Method: HAND - Hand Delivered Precious Days: Prior Verbal Notification: Recipient Understood Notice: Yes Recipient Signature: Yes Med Rec Note Co-signed by Attending: Coverage Notice Comment: DC IMM signed/delivered to patient's son. Original to chart. Last DP export: 02/28/20 3:28 p Patient Name: VAL CRUM Page 38697 at 1321 All edits/amendments must be made on the electronic document DICTATION DATE: 02/29/20 1320 MANAGER OF TRANSPORTATION: MARYAN 02/29/20 1320 RPT#: [id number] DC DATE:02/28/20 STATUS: DIS IN [facility] [address] [place] [address] END OF REPORT
== END 2020-02-28 13:21 | disposition home health service (06) | DRG 286 ==
LOC: D.ER 06:41 → D.M2 10:51
PROVIDERS: Emergency Medicine; Family Medicine; Internal Medicine Cardiovascular Disease; Internal Medicine Pulmonary Disease; ADMIT Family Medicine; ATTEND Family Medicine
PROC: 4A023N7 Measurement of Cardiac Sampling and Pressure, Left Heart, Percutaneous Approach (ICD-10-PCS; 2020-02-21)
PROC: B2111ZZ Fluoroscopy of Multiple Coronary Arteries using Low Osmolar Contrast (ICD-10-PCS; principal; 2020-02-21 08:00)
PROC: B2151ZZ Fluoroscopy of Left Heart using Low Osmolar Contrast (ICD-10-PCS; 2020-02-21 08:00)
DX: I50.33 Acute on chronic diastolic (congestive) heart failure (principal); J18.9 Pneumonia, unspecified organism; J96.02 Acute respiratory failure with hypercapnia; J96.21 Acute and chronic respiratory failure with hypoxia; J44.1 Chronic obstructive pulmonary disease with (acute) exacerbation; J44.0 Chronic obstructive pulmonary disease with (acute) lower respiratory infection; Z68.42 Body mass index [BMI] 45.0-49.9, adult; I48.92 Unspecified atrial flutter; Z99.81 Dependence on supplemental oxygen; E03.9 Hypothyroidism, unspecified; E66.01 Morbid (severe) obesity due to excess calories; F17.200 Nicotine dependence, unspecified, uncomplicated; F41.1 Generalized anxiety disorder; I08.0 Rheumatic disorders of both mitral and aortic valves; E87.5 Hyperkalemia; F15.90 Other stimulant use, unspecified, uncomplicated; F12.90 Cannabis use, unspecified, uncomplicated

== ENCOUNTER 2020-03-09 09:23 | Inpatient (IN) | payer MEDICARE ==
[~2020-03-09] VITALS: Ht 160 cm; Wt 145.1 kg
[~2020-03-09 09:23] MED LIST changes: +MOBIC7.5 MG PO; +SYNTHROID100 MCG PO
[2020-03-09 10:00] LABS: BASOPHILS 0.2 % (0-2); EOSINOPHILS 6.7 % (0-7); HEMATOCRIT 33.8 % (36.0-48.0); HEMOGLOBIN 10.1 g/dL (12-16); IMMATURE GRANULOCYTES 0.2 % (0-5); LYMPHOCYTES 20.6 % (15-50); MCH 30.3 pg (26.0-34.0); MCHC 29.9 g/dL (31.0-37.0); MCV 101.5 fL (80.0-100.0); MEAN PLATELET VOLUME 9.2 fL (7.4-10.4); MONOCYTES 7.6 % (2-11); NEUTROPHILS 64.7 % (40-80); PLATELET COUNT 251 10x3/uL (130-400); RBC 3.33 10x6/uL (4.00-5.40); RDW 17.2 % (11.5-14.5); WBC 6.6 10x3/uL (4.8-10.8)
[2020-03-09 10:04] LABS: APTT 29.8 SECONDS (22.8-39.4); CALC OSMOLALITY 287 mosm/kg (275-300); CALCIUM 9.1 mg/dL (8.5-10.1); CARBON DIOXIDE 38.4 mmol/L (21.0-32.0); CHLORIDE - SERUM 105 mmol/L (98-107); CREATININE - SERUM 1.1 mg/dL (0.6-1.3); GLUCOSE 95 mg/dL (74-106); INR 0.99 (0.85-1.17); POTASSIUM - SERUM 3.3 mmol/L (3.5-5.1); PROTIME 13.1 SECONDS (11.6-15.0); SODIUM 144 mmol/L (136-145); UREA NITROGEN 15 mg/dL (7-18); eGFR NON AFRICAN AMERICAN 54 mL/min (90-120)
[2020-03-09 10:25] LABS: ALBUMIN 3.1 g/dL (3.4-5.0); ALKALINE PHOSPHATASE 72 U/L (30-120); ALT (SGPT) 26 U/L (10-68); BILIRUBIN - TOTAL 0.56 mg/dL (0.2-1.3); CKMB 0.7 U/L (0.0-3.6); CREATINE KINASE 26 UL (21-215); PRO BNP 3182 pg/mL (0-125); PROTEIN - SERUM 6.8 g/dL (6.4-8.2); TROPONIN-I 0.018 ng/mL (0.000-0.060)
--- NOTE | 2020-03-09 10:54 | NUR ---
PT AMBULATED TO RESTROOM INDEPENDENTLY WITHOUT DIFFICULTY. PT EXPERIENCED DYSPNEA WITH EXERTION.
[2020-03-09 11:05] LABS: BILIRUBIN NEGATIVE (NEGATIVE); GLUCOSE NEGATIVE (NEGATIVE); KETONE NEGATIVE (NEGATIVE); NITRITE NEGATIVE (NEGATIVE); UROBILINOGEN NORMAL (NORMAL)
[2020-03-09 11:06] LABS: BACTERIA FEW /hpf (NEGATIVE); RED CELLS - URINE NONE SEEN /hpf (0-5); WHITE CELLS - URINE RARE /hpf (NEGATIVE)
[2020-03-09 12:49] VITALS: BP 116/78
--- NOTE | 2020-03-09 12:49 | NUR ---
CALLED REPORT TO WILBER DUKE
--- NOTE | 2020-03-09 13:15 | NUR ---
RECEIVED PT TO ROOM 2110 VIA STRETCHER, PT WAS ABLE TO WALK FROM STRETCHER TO BED. ORIENTED PT TO ROOM AND CALL LIGHT. PT A/O X4, PT A LITTLE SOB, ENCOURAGE PT TO TAKE DEEP BREATHS. WILL ASSESS PT AND START PLAN OF CARE.
[2020-03-09 13:33] LABS: MAGNESIUM - SERUM 2.2 mg/dL (1.8-2.4); THYROID STIMULATING HORMONE 1.69 uIU/mL (0.36-3.74)
[2020-03-09 13:49] VITALS: BP 125/62; BMI 56.8
[2020-03-09 14:04] LABS: UDS - AMPHET POSITIVE QUAL (NEGATIVE); UDS - BARB NEGATIVE QUAL (NEGATIVE); UDS - BENZO NEGATIVE QUAL (NEGATIVE); UDS - COCAINE NEGATIVE QUAL (NEGATIVE); UDS - OPIATE NEGATIVE QUAL (NEGATIVE); UDS - PCP NEGATIVE QUAL (NEGATIVE); UDS - THC POSITIVE QUAL (NEGATIVE)
[2020-03-09 14:57] LABS: % SATURATION 7 % (15-55); IRON 28 ug/dl (35-150); TOTAL IRON BIND CAPACITY 379 ug/dl (260-445); UNSAT IRON BIND CAPACITY 351 ug/dl (150-375)
--- NOTE | 2020-03-09 15:50 | NUR ---
PT RESTING COMFORTABLY IN BED, ON BIPAP. CALL LIGHT IN REACH.
[2020-03-09 17:15] VITALS: BP 96/53
--- NOTE | 2020-03-09 19:30 | NUR ---
RECEIVED REPORT, WILL ASSUME CARE OF PT, SLEEPING, NO DISTRESS NOTICED AT THIS TIME, BED IS LOW, SRX2, CALL LIGHT IN REACH, WILL CONTINUE PLAN OF CARE
[2020-03-09 20:00] VITALS: BP 103/70
[2020-03-10] VITALS: BP 112/73
[2020-03-10 04:00] VITALS: BP 105/58
--- NOTE | 2020-03-10 05:47 | NUR ---
I have reviewed this patient and I concur with the Shift Assessment completed by the Licensed Practical Nurse today this shift.
[2020-03-10 05:57] LABS: BASOPHILS 0 % (0-2); EOSINOPHILS 0 % (0-7); HEMATOCRIT 33.5 % (36.0-48.0); HEMOGLOBIN 10.1 g/dL (12-16); IMMATURE GRANULOCYTES 0.3 % (0-5); LYMPHOCYTES 15.6 % (15-50); MCH 30.2 pg (26.0-34.0); MCHC 30.1 g/dL (31.0-37.0); MCV 100.3 fL (80.0-100.0); MEAN PLATELET VOLUME 9.7 fL (7.4-10.4); MONOCYTES 3.7 % (2-11); NEUTROPHILS 80.4 % (40-80); PLATELET COUNT 284 10x3/uL (130-400); RBC 3.34 10x6/uL (4.00-5.40); RDW 16.6 % (11.5-14.5); WBC 6.4 10x3/uL (4.8-10.8)
[2020-03-10 06:41] LABS: ALBUMIN 2.8 g/dL (3.4-5.0); ALKALINE PHOSPHATASE 73 U/L (30-120); ALT (SGPT) 27 U/L (10-68); BILIRUBIN - TOTAL 0.48 mg/dL (0.2-1.3); CALC OSMOLALITY 282 mosm/kg (275-300); CALCIUM 8.3 mg/dL (8.5-10.1); CARBON DIOXIDE 37.7 mmol/L (21.0-32.0); CHLORIDE - SERUM 102 mmol/L (98-107); CKMB 0.4 U/L (0.0-3.6); CREATINE KINASE 27 UL (21-215); CREATININE - SERUM 1.2 mg/dL (0.6-1.3); GLUCOSE 130 mg/dL (74-106); MAGNESIUM - SERUM 2.2 mg/dL (1.8-2.4); POTASSIUM - SERUM 3.7 mmol/L (3.5-5.1); PROTEIN - SERUM 6.8 g/dL (6.4-8.2); SODIUM 140 mmol/L (136-145); UREA NITROGEN 19 mg/dL (7-18); eGFR NON AFRICAN AMERICAN 48 mL/min (90-120)
[2020-03-10 06:42] LABS: TROPONIN-I < 0.017 ng/mL (0.000-0.060)
[2020-03-10 06:54] LABS: APTT 30.2 SECONDS (22.8-39.4); INR 1.03 (0.85-1.17); PROTIME 13.4 SECONDS (11.6-15.0)
[2020-03-10 11:35] VITALS: BP 119/52
[2020-03-10 14:47] VITALS: BP 110/58
--- NOTE | 2020-03-10 19:00 | NUR ---
EVENING ROUNDS COMPLETE. PT LAYING IN BED. NO SIGNS OF DISTRESS. AAOX4. CL IN REACH, BED IN LOWEST POSITION. PT DENIES ANY PAIN OR NEEDS AT THIS TIME.
[2020-03-10 20:00] VITALS: BP 98/59
--- NOTE | 2020-03-10 22:51 | NUR ---
OT NOTE: PT COMPLETED BED MOB WITH MIN A. PT COMPLETED FACE/HAND HYGIENE WITH SETUP. [phone] THANK YOU,SAM AN
[2020-03-11] VITALS: BP 116/74
--- NOTE | 2020-03-11 00:33 | NUR ---
NOTIFIED SHEN BROWN APN, REGARDING PATIENT HEART RATE BETWEEN 160-180. ASSESSED PATIENT. ORDERS GIVEN FOR 25 MG IV BENADRYL.
--- NOTE | 2020-03-11 02:05 | NUR ---
AT APPROX. 0201 PT CONVERTED BACK TO NORMAL SINUS.
[2020-03-11 04:00] VITALS: BP 103/57
[2020-03-11 06:45] LABS: BASOPHILS 0.1 % (0-2); EOSINOPHILS 2.6 % (0-7); HEMATOCRIT 33.4 % (36.0-48.0); IMMATURE GRANULOCYTES 0.2 % (0-5); LYMPHOCYTES 15.6 % (15-50); MCH 30.2 pg (26.0-34.0); MCHC 29.9 g/dL (31.0-37.0); MCV 100.9 fL (80.0-100.0); MEAN PLATELET VOLUME 9.5 fL (7.4-10.4); MONOCYTES 7.7 % (2-11); NEUTROPHILS 73.8 % (40-80); PLATELET COUNT 296 10x3/uL (130-400); RBC 3.31 10x6/uL (4.00-5.40); RDW 16.9 % (11.5-14.5)
[2020-03-11 06:55] LABS: WBC 8.7 10x3/uL (4.8-10.8)
[2020-03-11 07:08] LABS: ALBUMIN 2.9 g/dL (3.4-5.0); BILIRUBIN - TOTAL 0.44 mg/dL (0.2-1.3); CALCIUM 8.1 mg/dL (8.5-10.1); CARBON DIOXIDE 38.3 mmol/L (21.0-32.0); CREATININE - SERUM 1.3 mg/dL (0.6-1.3); PROTEIN - SERUM 6.7 g/dL (6.4-8.2)
[2020-03-11 07:10] LABS: ANION GAP 5.8 mmol/L (8-16); POTASSIUM - SERUM 3.1 mmol/L (3.5-5.1)
[2020-03-11 07:58] VITALS: BP 109/71
[2020-03-11 11:40] VITALS: BP 126/76
[2020-03-11 13:43] VITALS: Ht 160 cm; Wt 145.1 kg
--- NOTE | 2020-03-11 14:00 | NUR ---
CALLED TO PATIENTS ROOM FOR COMPLAINTS OF CHEST PAIN AND PATIENT FOUND WITHOUT OXYGEN ON, STATING SHE WENT TO BATHROOM AND FORGOT TO REPLACE IT. TELEMETRY SHOWONG NSR 71, 101/64, 20, 97.4, 88% PAIN 02/07. OXYGEN REPLACED AT 7 LITERS PER ORDER. CALLED AND SPOKE WITH FILIPE HOANG AND RELAYED ABOVE AND POTASSIUM LEVEL OF 3.1 AND STATED PATIENT HAD RECEIVED LASIX TODAY AND RECEIVED ORDER FOR ELECTROLYTE PROTOCOL AND TO REPLACE POTASSIUM. PAGED AND SPOKE WITH OLEKSANDR RENEE NP AND RELAYED ALL ABOVE AND SHE ASK ABOUT MAG LEVEL, WNL. INFORMED HER RESP. WAS IN ROOM DOING TREATMENT NOW AND SHE STATED BELIEVES HYPOXIA DUE TO LACK OF OXYGEN AND THANK YOU FOR REPORT.
[2020-03-11 15:21] VITALS: BP 106/70
--- NOTE | 2020-03-11 16:00 | NUR ---
OT NOTE: CLEARED TO SEE PT BY NURSING. PT STATED SHE HAD CHEST PAINS DURING THE NIGHT. PT COMPLETED SUPINE TO SIT WITH SBA/CGA. PT COMPLETED SIT TO STAND WITH CGA. PT COMPLETED ADL MOB WITH CGA. PT EASILY FATIGUED. PT COMPLETED FACE/HAND HYGIENE TASKS AT EOB WITH SETUP. [phone] THANK YOU,SAM AN
[2020-03-11 21:41] VITALS: BP 114/72
[2020-03-12] VITALS: BP 108/62
[2020-03-12 04:00] VITALS: BP 98/52
[2020-03-12 06:25] LABS: BASOPHILS 0.3 % (0-2); EOSINOPHILS 6.5 % (0-7); HEMATOCRIT 34.2 % (36.0-48.0); HEMOGLOBIN 10.1 g/dL (12-16); IMMATURE GRANULOCYTES 0.3 % (0-5); LYMPHOCYTES 21.6 % (15-50); MCH 29.8 pg (26.0-34.0); MCHC 29.5 g/dL (31.0-37.0); MCV 100.9 fL (80.0-100.0); MEAN PLATELET VOLUME 9.7 fL (7.4-10.4); MONOCYTES 7.3 % (2-11); PLATELET COUNT 276 10x3/uL (130-400); RBC 3.39 10x6/uL (4.00-5.40); RDW 16.7 % (11.5-14.5); WBC 6.7 10x3/uL (4.8-10.8)
[2020-03-12 06:49] LABS: ALBUMIN 2.8 g/dL (3.4-5.0); ANION GAP 3.5 mmol/L (8-16); BILIRUBIN - TOTAL 0.61 mg/dL (0.2-1.3); CALCIUM 8.2 mg/dL (8.5-10.1); CARBON DIOXIDE 39.9 mmol/L (21.0-32.0); CREATININE - SERUM 1.1 mg/dL (0.6-1.3); POTASSIUM - SERUM 3.4 mmol/L (3.5-5.1); PROTEIN - SERUM 6.5 g/dL (6.4-8.2)
--- NOTE | 2020-03-12 11:06 | MORECARE ---
CASE MANAGEMENT DISCHARGE SUMMARY PATIENT: CLARA CRUM UNIT: [id number] ADM DATE: 03/09/20 AGE: 59 : 58 SEX: F ROOM/BED: D.2111 AUTHOR: WILLIS KAN PHYSICIAN: REFERRING PHYSICIAN: KASH NG MD DATE OF SERVICE: 03/12/20 Discharge Plan Patient Name: CLARA CRUM Facility: [facility]:[place] : 1960 Planned Disposition: Home Health Service Anticipated Discharge Date: 03/12/20 Discharge Date: Expected LOS: 3 Initial Reviewer: [email or web address] Initial Review Date: 03/09/2020 Generated: 03/12/20 12:06 pm Comments DCP- Discharge Planning Updated by [email or web address]: Nicole Cohen on 03/12/20 10:[address] CM met with patient to discuss initial discharge planning. Patient is in agreement to proceed with the assessment. Patient reports that she lives at home independently, alone. Patient is alert/oriented. Stairs/steps: Ramp. PCP: Dr. Lara. Pharmacy: [facility]. Patient states she has been able to obtain all of her prescribed medications. HHS: [facility] HHS. DME: ([employer]) Trilogy, O2, portable O2, cane, shower chair, hand held shower. Patient gives permission to speak with family members/care givers. Emergency contact: (son) Mino Metz [phone]. 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 CM discussed the availability of HH, Rehab, SNF, OP Therapy, DME services. Patient denies the need for additional services at this time and feels safe returning to previous environment. Patient denies hospitalization within the past 30 days. Patient denies the use of community resources DEMOLITIONIST. Transportation at time of discharge: Family. Patient Name: CLARA CRUM Page 72048 at 1106 All edits/amendments must be made on the electronic document DICTATION DATE: 03/12/20 1106 ASBESTOS ABATEMENT TECHNICIAN: MARYAN 03/12/20 1106 RPT#: [id number] DC DATE: STATUS: ADM IN [facility] [address] [place] [place] [address] END OF REPORT
[2020-03-12 11:25] VITALS: BP 94/46
--- NOTE | 2020-03-12 11:32 | MORECARE ---
CASE MANAGEMENT DISCHARGE SUMMARY PATIENT: CLARA CRUM UNIT: [id number] ADM DATE: 03/09/20 AGE: 59 : 58 SEX: F ROOM/BED: D.2691 AUTHOR: LUCIUS,DOC PHYSICIAN: REFERRING PHYSICIAN: KASH NG MD DATE OF SERVICE: 03/12/20 Discharge Plan Patient Name: CLARA CRUM Facility: [facility]:[place] : 1960 Planned Disposition: Home Health Service Anticipated Discharge Date: 03/12/20 Discharge Date: Expected LOS: 3 Initial Reviewer: [id number] Initial Review Date: 03/09/2020 Generated: 03/12/20 12:32 pm Comments DCP- Discharge Planning Updated by [email or web address]: Nicole Cohen on 03/12/20 10:[address] CM contacted the patient's son Mino, who provided the name of Lexy Sky #[phone], for transportation. Lexy will be here to vegetable picker the patient in approximately one hour. Patient and nurse were notified of same. CM met with patient to discuss initial discharge planning. Patient is in agreement to proceed with the assessment. Patient reports that she lives at home independently, alone. Patient is alert/oriented. Stairs/steps: Ramp. PCP: Dr. Lara. Pharmacy: [facility]. Patient states she has been able to obtain all of her prescribed medications. HHS: Care IV HHS. DME: ([employer]) Trilogy, O2, portable O2, cane, shower chair, hand held shower. Patient gives permission to speak with family members/care givers. Emergency contact: (son) Mino Metz [phone]. 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 CM discussed the availability of HH, Rehab, SNF, OP Therapy, DME services. Patient denies the need for additional services at this time and feels safe returning to previous environment. Patient denies hospitalization within the past 30 days. Patient denies the use of community resources MEDICAL APPLIANCE MAKER. Transportation at time of discharge: Family. Last DP export: 03/12/20 10:06 a Patient Name: CLARA CRUM Page 09139 at 1132 All edits/amendments must be made on the electronic document DICTATION DATE: 03/12/201131 BOILER ROOM HELPER: MARYAN 03/12/201131 RPT#: [id number] DC DATE: STATUS: ADM IN [facility] [address] [place] [address] END OF REPORT
[2020-03-12] MEDS ORDERED: PACERONE400 MG PO ×2 (11:46→15:27)
--- NOTE | 2020-03-12 15:25 | NUR ---
IVS REMOVED FOR DISCHARGE, PAPERS DISCUSSED WITH PATIENT AND FAMILY. STATED DR TOLD THEM WE WOULD CALL A INPATIENT AUDITOR IN [place] AND [place] FOR PAPERS TO BE FAXED THERE AND A NEW DR TO TAKE OVER CARE AND ADVISED PATIENT NURSING DOES NOT DO THAT AND THEY WOULD NEED TO CALL DR ADAM OFFICE AND HAVE THEM DO THAT. STATED UNDERSTANDING. TO CAR VIA WHEELCHAIR.
--- NOTE | 2020-03-12 21:11 | NUR ---
OT NOTE: CLEARED TO SEE PT BY NURSING. PT EXHIBITED SELF LIMITING BEHAVIOR. PT COMPLETED SUPINE TO SIT WITH CGA. PT COMPLETED RAVI SOCKS WITH TOTAL A. PT COMPLETED HAIR GROOMING WITH SETUP AT EOB WITH SPV. PT COMPLETED ADL MOB WITH R/W REQUIRED CGA. PT VERY ANXIOUS ABOUT PHONE NOT BEING CHARGED AND AT THIS TIME HAS NO TRANSPORTATION HOME. SAM NOTIFIED NURSE OF PTS CONCERNS. [phone] THANK YOU,SAM AN
--- NOTE | 2020-03-12 21:18 | MORECARE ---
CASE MANAGEMENT DISCHARGE SUMMARY PATIENT: VAL CRUM UNIT: [id number] ADM DATE: 03/09/20 AGE: 59 : 58 SEX: F ROOM/BED: D.0536 AUTHOR: LUCIUS,DOC PHYSICIAN: REFERRING PHYSICIAN: KASH NG MD DATE OF SERVICE: 03/12/20 Discharge Plan Patient Name: VAL CRUM Facility: [facility]:[place] : 1960 Planned Disposition: Home Health Service Anticipated Discharge Date: 03/12/20 Discharge Date: 03/12/2020 Expected LOS: 3 Initial Reviewer: [email or web address] Initial Review Date: 03/09/2020 Generated: 03/12/20 10:18 pm Comments DCP- Discharge Planning Updated by [email or web address]: Nicole Cohen on 03/12/20 10:[address] CM contacted the patient's son Mino, who provided the name of Lexy Sky #[phone], for transportation. Lexy will be here to black pickler the patient in approximately one hour. Patient and nurse were notified of same. CM met with patient to discuss initial discharge planning. Patient is in agreement to proceed with the assessment. Patient reports that she lives at home independently, alone. Patient is alert/oriented. Stairs/steps: Ramp. PCP: Dr. Lara. Pharmacy: [facility]. Patient states she has been able to obtain all of her prescribed medications. HHS: Care IV HHS. DME: ([employer]er[employer]) Trilogy, O2, portable O2, cane, shower chair, hand held shower. Patient gives permission to speak with family members/care givers. Emergency contact: (son) Mino Metz [phone]. 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 CM discussed the availability of HH, Rehab, SNF, OP Therapy, DME services. Patient denies the need for additional services at this time and feels safe returning to previous environment. Patient denies hospitalization within the past 30 days. Patient denies the use of community resources OVERHEAD CRANE TECHNICIAN. Transportation at time of discharge: Family. Coverage Notice Reviewer: [id number] - Nicole Cohen Notice Issued Date-Time: 03/12/2020 11:44 Notice Type: IM Discharge Notice Notice Delivered To: Patient Relationship to Patient: Self Chore Worker Name: Val Crum Delivery Method: HAND - Hand Delivered Precious Days: Prior Verbal Notification: Recipient Understood Notice: Yes Recipient Signature: Yes Med Rec Note Co-signed by Attending: Coverage Notice Comment: DC IMM signed/given to patient. Original to chart. Last DP export: 03/12/20 10:32 a Patient Name: VAL CRUM Page 36019 at 2117 All edits/amendments must be made on the electronic document DICTATION DATE: 03/12/202117 HEAD PORTER: MARYAN 03/12/202117 RPT#: [id number] DC DATE:03/12/20 STATUS: DIS IN [facility] [address] [place] [address] END OF REPORT
--- NOTE | 2020-03-13 12:06 | MORECARE ---
CASE MANAGEMENT DISCHARGE SUMMARY PATIENT: VAL CRUM UNIT: [id number] ADM DATE: 03/09/20 AGE: 59 : 58 SEX: F ROOM/BED: D.0303 AUTHOR: LUCIUS,DOC PHYSICIAN: REFERRING PHYSICIAN: KASH NG MD DATE OF SERVICE: 03/13/20 Discharge Plan Patient Name: VAL CRUM Facility: [facility]:[place] : 1960 Planned Disposition: Home Health Service Anticipated Discharge Date: 03/12/20 Discharge Date: 03/12/2020 Expected LOS: 3 Initial Reviewer: [email or web address] Initial Review Date: 03/09/2020 Generated: 03/13/20 1:06 pm Comments DCP- Discharge Planning Updated by [email or web address]: Nicole Cohen on 03/12/20 10:[address] CM contacted the patient's son Mino, who provided the name of Lexy Sky #[phone], for transportation. Lexy will be here to tack picker the patient in approximately one hour. Patient and nurse were notified of same. CM met with patient to discuss initial discharge planning. Patient is in agreement to proceed with the assessment. Patient reports that she lives at home independently, alone. Patient is alert/oriented. Stairs/steps: Ramp. PCP: Dr. Lara. Pharmacy: [facility]. Patient states she has been able to obtain all of her prescribed medications. HHS: Care IV HHS. DME: ([employer]) Trilogy, O2, portable O2, cane, shower chair, hand held shower. Patient gives permission to speak with family members/care givers. Emergency contact: (son) Mino Metz [phone]. 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 CM discussed the availability of HH, Rehab, SNF, OP Therapy, DME services. Patient denies the need for additional services at this time and feels safe returning to previous environment. Patient denies hospitalization within the past 30 days. Patient denies the use of community resources DIAL REFINISHER. Transportation at time of discharge: Family. External Providers External Provider: [facility] Next Contact Date: Service Request Date: Service Type: Resolution: Reviewer: Comments: Coverage Notice Reviewer: [id number] - Nicole Bernallroy Notice Issued Date-Time: 03/12/2020 11:44 Notice Type: IM Discharge Notice Notice Delivered To: Patient Relationship to Patient: Self Curatorial Assistant Name: Val Crum Delivery Method: HAND - Hand Delivered Precious Days: Prior Verbal Notification: Recipient Understood Notice: Yes Recipient Signature: Yes Med Rec Note Co-signed by Attending: Coverage Notice Comment: DC IMM signed/given to patient. Original to chart. Last DP export: 03/12/20 8:18 p Patient Name: VAL CRUM Page [id number] at 1206 All edits/amendments must be made on the electronic document DICTATION DATE: 03/13/20 1206 PRESS OPERATOR ASSISTANT: MARYAN 03/13/20 1206 RPT#: [id number] DC DATE:03/12/20 STATUS: DIS IN [facility] [address] [place] [address] END OF REPORT
--- NOTE | 2020-03-13 12:13 | MORECARE ---
CASE MANAGEMENT DISCHARGE SUMMARY PATIENT: VAL CRUM UNIT: [id number] ADM DATE: 03/09/20 AGE: 59 : 58 SEX: F ROOM/BED: D.4801 AUTHOR: LUCIUS,DOC PHYSICIAN: REFERRING PHYSICIAN: KASH NG MD DATE OF SERVICE: 03/13/20 Discharge Plan Patient Name: VAL CRUM Facility: [facility]:[place] : 1960 Planned Disposition: Home Health Service Anticipated Discharge Date: 03/12/20 Discharge Date: 03/12/2020 Expected LOS: 3 Initial Reviewer: [email or web address] Initial Review Date: 03/09/2020 Generated: 03/13/20 1:12 pm Comments DCP- Discharge Planning Updated by [email or web address]: Nicole Cohen on 03/13/20 11:[address] CM contacted [facility], spoke with Padilla Tony regarding resumption of care. Faxed required information. Request that the HH office contact MD office for resumption of care order. Padilla verifies that he will obtain a verbal order from Dr. Lara. DCP- Discharge Planning Updated by [email or web address]: Nicole Cohen on 03/12/20 10:[address] CM contacted the patient's son Mino, who provided the name of Lexy Sky #[phone], for transportation. Lexy will be here to picker / packer the patient in approximately one hour. Patient and nurse were notified of same. CM met with patient to discuss initial discharge planning. Patient is in agreement to proceed with the assessment. Patient reports that she lives at home independently, alone. Patient is alert/oriented. Stairs/steps: Ramp. PCP: Dr. Lara. Pharmacy: [facility]. Patient states she has been able to obtain all of her prescribed medications. HHS: Care IV HHS. DME: ([employer]) Trilogy, O2, portable O2, cane, shower chair, hand held shower. Patient gives permission to speak with family members/care givers. Emergency contact: (son) Mino Metz [phone]. 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 CM discussed the availability of HH, Rehab, SNF, OP Therapy, DME services. Patient denies the need for additional services at this time and feels safe returning to previous environment. Patient denies hospitalization within the past 30 days. Patient denies the use of community resources FINANCIAL LEGAL ASSISTANT. Transportation at time of discharge: Family. Coverage Notice Reviewer: [id number] Qian Cohen Notice Issued Date-Time: 03/12/2020 11:44 Notice Type: IM Discharge Notice Notice Delivered To: Patient Relationship to Patient: Self Technical Systems Architect Name: Val Crum Delivery Method: HAND - Hand Delivered Precious Days: Prior Verbal Notification: Recipient Understood Notice: Yes Recipient Signature: Yes Med Rec Note Co-signed by Attending: Coverage Notice Comment: DC IMM signed/given to patient. Original to chart. Last DP export: 03/13/20 11:06 a Patient Name: VAL CRUM Page [id number] at 1213 All edits/amendments must be made on the electronic document DICTATION DATE: 03/13/20 1212 YARD CONDUCTOR: MARYAN 03/13/20 1212 RPT#: [id number] DC DATE:03/12/20 STATUS: DIS IN [facility] [address] [place] [address] END OF REPORT
== END 2020-03-12 15:29 | disposition home health service (06) | DRG 291 ==
LOC: D.ER 09:23 → D.M2 12:58
PROVIDERS: Family Medicine; ADMIT Family Medicine; ATTEND Family Medicine
DX: I50.33 Acute on chronic diastolic (congestive) heart failure (principal); J96.21 Acute and chronic respiratory failure with hypoxia; J96.22 Acute and chronic respiratory failure with hypercapnia; J44.1 Chronic obstructive pulmonary disease with (acute) exacerbation; Z68.43 Body mass index [BMI] 50.0-59.9, adult; I08.0 Rheumatic disorders of both mitral and aortic valves; D53.9 Nutritional anemia, unspecified; E87.6 Hypokalemia; G47.33 Obstructive sleep apnea (adult) (pediatric); E03.9 Hypothyroidism, unspecified; E66.01 Morbid (severe) obesity due to excess calories; K21.9 Gastro-esophageal reflux disease without esophagitis; F15.90 Other stimulant use, unspecified, uncomplicated; F12.90 Cannabis use, unspecified, uncomplicated; K44.9 Diaphragmatic hernia without obstruction or gangrene